=== PATIENT | female | born 1955 | race Caucasian/White ===

== ENCOUNTER → 2018-08-15 12:52 | Outpatient (CLI) | payer MEDICARE, MEDICAID, SELFPAY ==
[2018-08-15 13:55] LABS: Cholesterol 190 mg/dL (140-199); HDL Cholesterol 31 mg/dL (40-60); LDL Cholesterol Calculated 109 mg/dL (<100); Triglycerides 250 mg/dL (35-150)
[2018-08-19 18:18] LABS: Creatinine Urine Random 87.6 mg/dL
[2018-08-19 19:45] LABS: Microalbumi Creatinin Ratio Ur 453.1 ug/mg CR (<30); Microalbumin Urine Random 39.7 mg/dL (0-1.6)
== END ==
PROVIDERS: Family Provider Family Medicine; PCP Family Medicine; Visit Provider Family Medicine
DX: E78.00 Pure hypercholesterolemia, unspecified (principal)
CPT/HCPCS: 80061; 82043; 82570

== ENCOUNTER 2019-01-17 18:56 | Emergency (ER) | payer MEDICARE, MEDICAID, SELFPAY ==
[2019-01-17 19:12] VITALS: BP 156/85; PULSE 77; RESP 18; TEMP 36.3; O2SAT 100
[2019-01-17] MEDS: CYCLOBENZAPRINE 10 MG PREPACK 1 BOTTLE MISC (20:32)
[2019-01-17] MEDS: predniSONE 20 MG TABLET 40 MG PO (20:32)
[2019-01-17 20:38] VITALS: RESP 18
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
== END 2019-01-17 20:39 | disposition home or self-care (01) ==
PROVIDERS: Emergency Provider Emergency Medicine; Family Provider Family Medicine; PCP Student in an Organized Health Care Education/Training Program
DX: M54.41 Lumbago with sciatica, right side (principal)
CPT/HCPCS: 99282; 99283

== ENCOUNTER → 2019-02-26 15:35 | Outpatient (CLI) | payer MEDICARE, MEDICAID, SELFPAY ==
--- NOTE | 2019-02-26 | DI.MRI.S_ITS ---
PROCEDURE: MR LUMBAR SPINE WO CON INDICATIONS: LOW BACK PAIN TECHNIQUE: Noncontrast sagittal T1 spin echo and T2 fast echo, sagittal STIR, axial T1 and T2 fast spin echo through the lumbar spine. In cases with scoliosis, additional coronal T2 fast spin echo may be performed. COMPARISON: [facility], MR, L-SPINE WITHOUT CONTRAST, 02/25/2018, 17:59. FINDINGS: Image quality: Excellent. Alignment and Curvature: Unchanged alignment. Grade 1 anterolisthesis of L4 and L5 as before. Bone Marrow: Multilevel degenerative endplate sclerosis and spurring. Mild anterior wedging of T12 which is unchanged. Diffuse facet arthropathy. No acute vertebral body compression fractures. Spinal Cord: Conus medullaris terminates at the T12-L1 level. Visualized cord demonstrates normal signal and size. Paraspinous Soft Tissues: No paravertebral masses. T12-L1: Mild canal narrowing which is grossly unchanged. Mild bilateral foraminal stenoses L1-L2: Bilateral facet arthropathy. No canal stenosis. Lateral recess appear grossly patent. Mild bilateral foraminal narrowing which is grossly unchanged L2-L3: Broad-based posterior disc bulge. Right paracentral disc protrusion and inferior extrusion almost the level of the mid L3 vertebral body. The appearance is grossly unchanged since 02/25/18. There is moderate canal narrowing with associated compression of the cauda equina. There is also effacement of the right lateral recess with compression of the descending right L3 nerve root although probably unchanged since the prior study. L3-L4: Broad-based posterior disc bulge bilateral facet arthropathy which is grossly unchanged. There is mild partial effacement of both lateral recesses with symmetric appearance. Mild bilateral foraminal narrowing, as before. L4-L5: Broad-based posterior disc bulge mild facet arthropathy. Mild central canal narrowing and severe effacement of both lateral recesses although right slightly greater than left. Associated compression of the descending L5 nerve roots. This is slightly progressed on the right since the prior study. No change on the left. Moderate to severe bilateral foraminal narrowing with mild compression of the exiting nerve roots L5-S1: Central disc protrusion and bilateral facet arthropathy. Dorsal epidural lipomatosis and unchanged mild central canal narrowing. Lateral recesses appear grossly patent. Mild bilateral foraminal narrowing. IMPRESSION: Slight interval progression in right sided subarticular narrowing as above at L4-L5 otherwise grossly unchanged examination since 02/25/18. Dictated by: Tejinder Ferguson M.D. on 02/26/2019 at 16:57 Approved by: Tejinder Ferguson M.D. on 02/26/2019 at 17:06
[2019-02-26 18:01] LABS: HEMOLYSIS < 15 (0-50); Iron 47 ug/dL (37-170)
[2019-02-26 18:02] LABS: Hematocrit 30.8 % (36-46); Hemoglobin 10.3 g/dL (12.0-16.0); Mean Corpuscular HGB Conc 33.3 % (30-36); Mean Corpuscular Hemoglobin 32.6 PG (26-34); Platelet Count 264 X10^3/uL (150-400); Red Blood Cell Count 3.14 X10^6/uL (4.0-5.2); Red Cell Distribution Width 15.7 % (11.6-14.8); White Blood Cell Count 4.8 X10^3/uL (4.5-11.0)
[2019-02-26 18:03] LABS: Alanine Aminotransferase 24 IU/L (9-52); Albumin 3.5 g/dL (3.5-5.0); Albumin Globulin Ratio 1.7 (1.0-2.8); Alkaline Phosphatase 87 U/L (38-126); Aspartate Aminotransferase 15 IU/L (14-36); Bilirubin Total 0.4 mg/dL (0.2-1.3); Blood Urea Nitrogen 26 mg/dL (7-17); Calcium 8.9 mg/dL (8.4-10.2); Carbon Dioxide 19 mmol/L (22-32); Chloride 110 mmol/L (98-107); Globulin 2.1 g/dL (1.7-4.1); Glucose 119 mg/dL (80-110); HEMOLYSIS < 15 (0-50); Sodium 139 mmol/L (137-145); Total Protein 5.6 g/dL (6.3-8.2)
[2019-02-26 18:08] LABS: Hemoglobin A1C% w Est Avg Glu 4.6 % (4.0-6.0)
[2019-02-26 18:10] LABS: Reticulocyte Count, Percent 7.9 % (1.06-2.63)
[2019-02-26 18:12] LABS: Percent Iron Saturation 16 % (15-50); Total Iron Binding Capacity 285 ug/dL (265-497); Transferrin 220 mg/dL (206-381)
[2019-02-26 18:19] LABS: Vitamin D 25 Hydroxy (D3) < 12.8 ng/mL (30.0-100.0)
[2019-02-26 19:07] LABS: Folate 7.4 ng/mL (2.76-20.0); Vitamin B12 293 pg/mL (239-931)
[2019-02-28 14:27] LABS: Phosphorous 3.8 mg/dL (2.8-4.1)
== END ==
PROVIDERS: Family Provider Family Medicine; PCP Student in an Organized Health Care Education/Training Program; Visit Provider Orthopaedic Surgery
DX: M54.5 Low back pain (principal); E11.9 Type 2 diabetes mellitus without complications; I12.9 Hypertensive chronic kidney disease with stage 1 through stage 4 chronic kidney disease, or unspecified chronic kidney disease; N18.3 Chronic kidney disease, stage 3 (moderate); R60.0 Localized edema; D64.9 Anemia, unspecified; E55.9 Vitamin D deficiency, unspecified; M12.88 Other specific arthropathies, not elsewhere classified, other specified site; Z79.899 Other long term (current) drug therapy
CPT/HCPCS: 36415; 72148; 80053; 82306; 82607; 82728; 82746; 83036; 83540; 83550; 84100; 85027; 85045

== ENCOUNTER 2019-10-15 12:33 | Emergency (ER) | payer MEDICARE, MEDICAID, SELFPAY ==
[2019-10-15 12:47] VITALS: BP 161/81; PULSE 73; RESP 20; O2SAT 97
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
--- NOTE | 2019-10-15 12:59 | PC.NURSE ---
small raised red blanching rash to ankles and feet bilaterally, circumferential with spread to posterior lower legs, non itching, non painful
[2019-10-15 13:32] VITALS: BP 144/81; PULSE 70; RESP 18; O2SAT 98
== END 2019-10-15 13:33 | disposition home or self-care (01) ==
PROVIDERS: Emergency Provider Nurse Practitioner Family; PCP Student in an Organized Health Care Education/Training Program
DX: R21 Rash and other nonspecific skin eruption (principal); I87.2 Venous insufficiency (chronic) (peripheral); E11.9 Type 2 diabetes mellitus without complications
CPT/HCPCS: 99282

== ENCOUNTER → 2019-10-16 11:45 | Outpatient (CLI) | payer MEDICARE, MEDICAID, SELFPAY ==
[2019-10-16 12:52] LABS: Add Manual Diff / Slide Review NO; Basophils Absolute Auto 0 /uL (0-100); Basophils Percent Auto 0.6 % (0-2); Eosinophils Absolute Auto 300 /uL (0-450); Eosinophils Percent Auto 3.8 % (2-4); Hematocrit 40.5 % (36-46); Hemoglobin 13.1 g/dL (12.0-16.0); Lymphocytes Absolute Auto 1800 /uL (1100-4500); Lymphocytes Percent Auto 26.9 % (25-40); Mean Corpuscular HGB Conc 32.4 % (30-36); Mean Corpuscular Hemoglobin 28.7 PG (26-34); Mean Corpuscular Volume 88.5 fL (80-100); Monocytes Absolute Auto 500 /uL (0-900); Monocytes Percent Auto 7.7 % (3-14); Neutrophils Absolute Auto 4200 /uL (1500-7000); Platelet Count 326 X10^3/uL (150-400); Red Blood Cell Count 4.58 X10^6/uL (4.0-5.2); Red Cell Distribution Width 15.9 % (11.6-14.8); White Blood Cell Count 6.8 X10^3/uL (4.5-11.0)
[2019-10-16 13:01] LABS: Reticulocyte Count, Percent 2.6 % (1.06-2.63)
[2019-10-16 13:10] LABS: Hemoglobin A1C% w Est Avg Glu 7.6 % (4.0-6.0)
[2019-10-16 13:11] LABS: Blood Urea Nitrogen 36 mg/dL (7-17); Calcium 8.6 mg/dL (8.4-10.2); Carbon Dioxide 26 mmol/L (22-32); Chloride 103 mmol/L (98-107); Cholesterol 251 mg/dL (140-199); Estimated Glomerular Filt Rate 28.2 mL/min (>60); Glucose 164 mg/dL (80-110); HDL Cholesterol 33 mg/dL (40-60); HEMOLYSIS < 15 (0-50); LDL Cholesterol Calculated 147 mg/dL (<100); Potassium 4.3 mmol/L (3.4-5.1); Sodium 138 mmol/L (137-145); Triglycerides 355 mg/dL (35-150)
[2019-10-16 13:17] LABS: Erythrocyte Sedimentation Rate 60 MM/HR (0-20)
[2019-10-16 13:24] LABS: Vitamin D 25 Hydroxy (D3) < 12.8 ng/mL (30.0-100.0)
[2019-10-19 13:51] LABS: Parathyroid Hormone Int 179 pg/mL (14-64)
== END ==
PROVIDERS: PCP Student in an Organized Health Care Education/Training Program; Visit Provider Nurse Practitioner
DX: D64.9 Anemia, unspecified (principal); E55.9 Vitamin D deficiency, unspecified; N18.3 Chronic kidney disease, stage 3 (moderate); E11.9 Type 2 diabetes mellitus without complications; E78.2 Mixed hyperlipidemia
CPT/HCPCS: 36415; 80048; 80061; 82306; 83036; 83516; 83970; 84100; 85025; 85045; 85651; 86140; 86880

== ENCOUNTER → 2019-10-20 13:32 | Outpatient (CLI) | payer MEDICARE, MEDICAID, SELFPAY | PROVIDERS: PCP Student in an Organized Health Care Education/Training Program; Visit Provider Student in an Organized Health Care Education/Training Program | DX: Z13.820 Encounter for screening for osteoporosis (principal); M81.0 Age-related osteoporosis without current pathological fracture; E11.22 Type 2 diabetes mellitus with diabetic chronic kidney disease; N18.3 Chronic kidney disease, stage 3 (moderate); M54.5 Low back pain; Z90.722 Acquired absence of ovaries, bilateral | CPT/HCPCS: 77080; 77081 ==

== ENCOUNTER → 2019-10-27 15:29 | Outpatient (CLI) | payer MEDICARE, MEDICAID, SELFPAY ==
[2019-10-27 16:11] LABS: Add Manual Diff / Slide Review NO; Basophils Absolute Auto 100 /uL (0-100); Eosinophils Absolute Auto 100 /uL (0-450); Eosinophils Percent Auto 2.3 % (2-4); Hematocrit 41.2 % (36-46); Hemoglobin 13.9 g/dL (12.0-16.0); Lymphocytes Absolute Auto 1300 /uL (1100-4500); Lymphocytes Percent Auto 20.6 % (25-40); Mean Corpuscular HGB Conc 33.6 % (30-36); Mean Corpuscular Hemoglobin 29.4 PG (26-34); Mean Corpuscular Volume 87.6 fL (80-100); Monocytes Absolute Auto 400 /uL (0-900); Neutrophils Absolute Auto 4200 /uL (1500-7000); Neutrophils Percent Auto 69.1 % (50-75); Platelet Count 281 X10^3/uL (150-400); Red Blood Cell Count 4.71 X10^6/uL (4.0-5.2); Red Cell Distribution Width 16.3 % (11.6-14.8); White Blood Cell Count 6.1 X10^3/uL (4.5-11.0)
[2019-10-27 16:28] LABS: Erythrocyte Sedimentation Rate 59 MM/HR (0-20)
[2019-10-27 17:23] LABS: BUN Creatinine Ratio 20.5 (6-22); Blood Urea Nitrogen 39 mg/dL (7-17); C-Reactive Protein Quant 0.9 mg/dL (<1.0); Calcium 9.1 mg/dL (8.4-10.2); Carbon Dioxide 19 mmol/L (22-32); Chloride 108 mmol/L (98-107); Estimated Glomerular Filt Rate 26.4 mL/min (>60); Glucose 230 mg/dL (80-110); HEMOLYSIS < 15 (0-50); Potassium 4.8 mmol/L (3.4-5.1); Sodium 139 mmol/L (137-145)
== END ==
PROVIDERS: PCP Student in an Organized Health Care Education/Training Program; Visit Provider Student in an Organized Health Care Education/Training Program
DX: L98.499 Non-pressure chronic ulcer of skin of other sites with unspecified severity (principal); N18.3 Chronic kidney disease, stage 3 (moderate)
CPT/HCPCS: 36415; 80048; 85025; 85651; 86140

== ENCOUNTER → 2019-11-04 13:26 | Outpatient (CLI) | payer MEDICARE, MEDICAID, SELFPAY | PROVIDERS: PCP Student in an Organized Health Care Education/Training Program; Visit Provider Family Medicine | DX: E11.628 Type 2 diabetes mellitus with other skin complications (principal); S21.002A Unspecified open wound of left breast, initial encounter | CPT/HCPCS: 97597; 99203; 99213 ==

== ENCOUNTER → 2019-11-19 13:53 | Outpatient (CLI) | payer MEDICARE, MEDICAID, SELFPAY | PROVIDERS: PCP Student in an Organized Health Care Education/Training Program; Visit Provider Family Medicine | DX: E11.622 Type 2 diabetes mellitus with other skin ulcer (principal); S21.002A Unspecified open wound of left breast, initial encounter | CPT/HCPCS: 99212; 99213 ==

== ENCOUNTER → 2019-12-08 13:53 | Outpatient (CLI) | payer MEDICARE, MEDICAID, SELFPAY | PROVIDERS: PCP Student in an Organized Health Care Education/Training Program; Referring Provider Student in an Organized Health Care Education/Training Program; Visit Provider Family Medicine | DX: E11.628 Type 2 diabetes mellitus with other skin complications (principal); B37.2 Candidiasis of skin and nail | CPT/HCPCS: 99213 ==

== ENCOUNTER → 2019-12-17 12:22 | Outpatient (CLI) | payer MEDICARE, MEDICAID, SELFPAY ==
[2019-12-17 13:06] LABS: Hematocrit 41.9 % (36-46); Hemoglobin 13.6 g/dL (12.0-16.0)
[2019-12-17 14:14] LABS: HEMOLYSIS < 15 (0-50); Iron 37 ug/dL (37-170)
[2019-12-17 14:25] LABS: Percent Iron Saturation 14 % (15-50); Total Iron Binding Capacity 274 ug/dL (265-497); Transferrin 241 mg/dL (206-381)
[2019-12-17 16:12] LABS: BUN Creatinine Ratio 21.1 (6-22); Blood Urea Nitrogen 38 mg/dL (7-17); Calcium 9.5 mg/dL (8.4-10.2); Carbon Dioxide 25 mmol/L (22-32); Chloride 104 mmol/L (98-107); Estimated Glomerular Filt Rate 28.2 mL/min (>60); Glucose 103 mg/dL (80-110); HEMOLYSIS < 15 (0-50); Potassium 5.1 mmol/L (3.4-5.1); Sodium 139 mmol/L (137-145)
[2019-12-21 13:48] LABS: Parathyroid Hormone Int 143 pg/mL (14-64)
== END ==
PROVIDERS: PCP Student in an Organized Health Care Education/Training Program; Visit Provider Student in an Organized Health Care Education/Training Program
DX: I50.32 Chronic diastolic (congestive) heart failure (principal); D50.0 Iron deficiency anemia secondary to blood loss (chronic); D64.9 Anemia, unspecified; N25.81 Secondary hyperparathyroidism of renal origin
CPT/HCPCS: 36415; 80048; 82728; 83540; 83550; 83970; 85014; 85018

== ENCOUNTER → 2019-12-24 13:50 | Outpatient (CLI) | payer MEDICARE, MEDICAID, SELFPAY | PROVIDERS: PCP Student in an Organized Health Care Education/Training Program; Referring Provider Student in an Organized Health Care Education/Training Program; Visit Provider Family Medicine | DX: E11.628 Type 2 diabetes mellitus with other skin complications (principal); S21.002D Unspecified open wound of left breast, subsequent encounter | CPT/HCPCS: 99212; 99213 ==

== ENCOUNTER 2020-01-03 14:32 | Observation (INO) | payer MEDICARE, MEDICAID, SELFPAY ==
[2020-01-03] VITALS (8 sets, daily range): BP systolic 115–173; BP diastolic 55–80; PULSE 78–96; RESP 13–23; TEMP 36.3–36.8; O2SAT 80–98; BMI 39.9
--- NOTE | 2020-01-03 14:33 | DI.RAD.S_ITS ---
PROCEDURE: XR CHEST 1V INDICATIONS: suspected sepsis TECHNIQUE: One view of the chest was acquired. COMPARISON: [facility], , CHEST 2 VIEW, 03/22/2013, 15:48. FINDINGS: Surgical changes and devices: Median sternotomy changes are present. Multiple broken sternal wires are noted. Lungs and pleura: Lungs are clear. No pleural effusions or pneumothorax. Mediastinum: Mediastinal contours appear normal. Heart size is enlarged. Bones and chest wall: No suspicious bony lesions. Overlying soft tissues appear unremarkable. IMPRESSION: Cardiomegaly without overt heart failure. No definite pneumonia. Dictated by: Timbo Bull M.D. on 01/03/2020 at 15:26 Approved by: Timbo Bull M.D. on 01/03/2020 at 15:27
[2020-01-03] MEDS: SODIUM CHLORIDE 0.9% 1,000 ML 1000 ML IV (14:47)
[2020-01-03] MEDS: ONDANSETRON 4 MG/2 ML INJ IV (14:59)
[2020-01-03] MEDS: MORPHINE 4 MG/ML INJ IV ×2 (14:59→20:15)
[2020-01-03 15:02] LABS: Add Manual Diff / Slide Review NO; Basophils Absolute Auto 0 /uL (0-100); Basophils Percent Auto 0.5 % (0-2); Eosinophils Absolute Auto 100 /uL (0-450); Eosinophils Percent Auto 1.7 % (2-4); Hematocrit 42.2 % (36-46); Hemoglobin 14.1 g/dL (12.0-16.0); Lymphocytes Absolute Auto 1300 /uL (1100-4500); Lymphocytes Percent Auto 18.8 % (25-40); Mean Corpuscular HGB Conc 33.3 % (30-36); Mean Corpuscular Hemoglobin 28.6 PG (26-34); Mean Corpuscular Volume 85.9 fL (80-100); Monocytes Absolute Auto 400 /uL (0-900); Monocytes Percent Auto 5.8 % (3-14); Neutrophils Absolute Auto 5200 /uL (1500-7000); Neutrophils Percent Auto 73.2 % (50-75); Platelet Count 266 X10^3/uL (150-400); Red Blood Cell Count 4.92 X10^6/uL (4.0-5.2); Red Cell Distribution Width 16.2 % (11.6-14.8); White Blood Cell Count 7.1 X10^3/uL (4.5-11.0)
[2020-01-03 15:06] LABS: INR 1.1 (0.9-1.3); Prothrombin Time 12.1 SECONDS (10.1-12.7)
[2020-01-03 15:09] LABS: PTT Partial Thromboplastin Tim 35 SECONDS (26.4-36.2)
[2020-01-03 15:19] LABS: Alanine Aminotransferase 16 IU/L (<35); Albumin 4.2 g/dL (3.5-5.0); Albumin Globulin Ratio 1.4 (1.0-2.8); Alkaline Phosphatase 102 U/L (38-126); Aspartate Aminotransferase 25 IU/L (14-36); BUN Creatinine Ratio 16.5 (6-22); Bilirubin Total 0.7 mg/dL (0.2-1.3); Blood Urea Nitrogen 33 mg/dL (7-17); Calcium 9.6 mg/dL (8.4-10.2); Carbon Dioxide 22 mmol/L (22-32); Chloride 106 mmol/L (98-107); Estimated Glomerular Filt Rate 24.9 mL/min (>60); Globulin 3.1 g/dL (1.7-4.1); Glucose 116 mg/dL (80-110); HEMOLYSIS < 15 (0-50); Lipase 92 U/L (23-300); Sodium 140 mmol/L (137-145); Total Protein 7.3 g/dL (6.3-8.2)
--- NOTE | 2020-01-03 15:34 | DI.RAD.S_ITS ---
PROCEDURE: XR LUMBAR SPINE 2-3V INDICATIONS: fall on Friday, worsening low back pain TECHNIQUE: 4 views of the lumbar spine were acquired. COMPARISON: [facility], MR, MR LUMBAR SPINE WO CON, 02/26/2019, 16:00. [facility], CR, L-SPINE 2-3 VIEWS, 02/18/2018, 15:46. FINDINGS: Bones: 5 [id number] vertebrae are present. Mild scoliosis. Mild anterolisthesis of L4 on L5, appears unchanged. Moderate degenerative change. No vertebral body compression fractures. No suspicious bony lesions. Soft tissues: Mildly prominent loop of small bowel in the left abdomen. No suspicious soft tissue calcifications. Cholecystectomy clips. IMPRESSION: 1. No acute osseous abnormality identified. 2. Mildly prominent loop of small bowel in the mid left abdomen. Correlate with abdominal tenderness. Dictated by: Marcel Rai M.D. on 01/03/2020 at 16:33 Approved by: Marcel Rai M.D. on 01/03/2020 at 16:39
--- NOTE | 2020-01-03 15:34 | DI.RAD.S_ITS ---
PROCEDURE: XR PELVIS 1-2V INDICATIONS: fall friday worse low back pain, unable to walk TECHNIQUE: 1 view(s) of the pelvis acquired. COMPARISON: [facility], , PELVIS W UNILATERAL HIP LEFT, 02/13/2015, 14:40. FINDINGS: Bones: No fractures or dislocations. No suspicious bony lesions. Moderate to severe to space narrowing in the left hip joint. Stable irregularity at the left SI joint. Soft tissues: Visualized bowel gas pattern is normal. No suspicious soft tissue calcifications. IMPRESSION: No obvious fracture or dislocation. 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 Dictated by: Marcel Rai M.D. on 01/03/2020 at 16:39 Approved by: Marcel Rai M.D. on 01/03/2020 at 16:40
[2020-01-03 15:36] LABS: Procalcitonin 0.09 ng/mL (<0.5)
--- NOTE | 2020-01-03 16:10 | PC.NURSE ---
Second set of blood cultures drawn from IV RAC.
--- NOTE | 2020-01-03 17:21 | ED_ITS ---
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 She is not having any clear neurologic symptoms that require emergent a valve this evening. She has been having some diarrhea frequently but there were no clear changes on her imaging that would relate to causing this. She has not been having any urinary or fecal incontinence. Her CT does show cystitis type changes and catheterization shows almost purulence like urine which has nitrates and leuks and so patient was started on antibiotics. This in combination with her chronic back issues may be contributing to her debility at this time. Spoke with NAVA Werner who had initially been made aware by Dr. Pitts and she accepts the patient for observation. Observation status was made clear to the patient at the request the nurse practitioner. Rocephin was started in the department. Patient has not shown any signs of sepsis. Discharge Plan Departure Patient Disposition: Admitted as Observation Clinical Impression: Right hip pain, Sciatica of right side, Disability of walking Lower back pain Qualifiers: Chronicity: chronic Back pain laterality: midline Sciatica presence: with sciatica Sciatica laterality: sciatica of right side Qualified Code(s): M54.41 - Lumbago with sciatica, right side Chronic bronchitis Qualifiers: Chronic bronchitis type: unspecified Qualified Code(s): J42 - Unspecified chronic bronchitis UTI (urinary tract infection) Qualifiers: Urinary tract infection type: acute cystitis Hematuria presence: with hematuria Qualified Code(s): N30.01 - Acute cystitis with hematuria Discharge Date/Time: 01/03/20 22:14 Admit Date/Time: 01/03/20 21:13 Admit Provider: Janie Werenr
[2020-01-03] MEDS: ALBUTEROL/IPRATROPIUM 3 ML AMPUL INH (18:08)
--- NOTE | 2020-01-03 18:10 | DI.CT.S_ITS ---
PROCEDURE: CT LUMBAR SPINE WO CON INDICATIONS: severe low back pain unable to walk TECHNIQUE: Noncontrast 3 mm thick sections acquired from the T12 level to the sacrum. Sagittal and coronal reformats were constructed. For radiation dose reduction, the following was used: automated exposure control. COMPARISON: None. FINDINGS: Image quality: Excellent. Bones: There is a grade 1 anterolisthesis L4 on 5. No acute vertebral body compression fractures. Chronic anterior wedge deformity with dystrophic ossification anteriorly involving T12. No suspicious lytic or blastic bony lesions. Central spinal caliber is of normal overall caliber. No pars defects. T12-L1: Severe disc height loss and mild posterior endplate osteophytosis. Mild anterior central canal narrowing. L1-L2: Minor degenerative change. L2-L3: Severe degenerative disc height loss, posterior endplate osteophytosis, and mild facet arthropathy results in moderate central canal stenosis. L3-L4: Moderate degenerative disc change with vacuum disc phenomenon and mild posterior disc protrusion results in effacement of anterior thecal sac. Moderate facet arthropathy contributes to mild overall central canal narrowing. L4-L5: Severe degenerative facet change and mild disc degeneration including central vacuum disc phenomenon is present. Grade 1 anterolisthesis accentuates moderate central canal narrowing. L5-S1: Mild degenerative vacuum disc phenomenon causes minor central canal narrowing. 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 No paraspinal soft tissue inflammation. No retroperitoneal masses or hematomas. Visualized aorta is normal in caliber. IMPRESSION: 1. Chronic multilevel spondylosis. Central canal stenosis is most severe at the L2-3 level. 2. Degenerative facet joint change results in grade 1 anterolisthesis at the L4-5 level. 3. 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 Dictated by: Krys Martinez M.D. on 01/03/2020 at 20:04 Approved by: Krys Martinez M.D. on 01/03/2020 at 20:11
--- NOTE | 2020-01-03 18:10 | DI.CT.S_ITS ---
PROCEDURE: CT ABDOMEN PELVIS WO CON INDICATIONS: svere low back pain unable to walk TECHNIQUE: Noncontrast 5 mm thick sections acquired from the diaphragms to the symphysis. 5 mm coronal and sagittal reformats were then performed. For radiation dose reduction, the following was used: automated exposure control, adjustment of mA and/or kV according to patient size. COMPARISON: None. FINDINGS: Image quality: Excellent. ABDOMEN: Lung bases: Lung bases demonstrate patchy subpleural parenchymal groundglass opacities. No effusion. Heart size is normal. Solid organs: Liver is normal in size. Gallbladder is surgically absent. Pancreas is normal in contours. Spleen is mildly enlarged measuring 14.3 cm in length. No adrenal nodules. Kidneys are diminutive bilaterally with vascular calcifications. Peritoneum and bowel: Unenhanced bowel loops demonstrate normal wall thickness and caliber. The appendix is normal. Mildly prominent small bowel loops containing air-fluid levels. No visible transition point. Diverticulosis of the descending and sigmoid colon without acute inflammatory change. No free fluid or air. Nodes and vessels: No retroperitoneal or mesenteric adenopathy by size criteria. Aorta and inferior vena cava are normal in caliber. Miscellaneous: No ventral hernias. PELVIS: Genitourinary: There are multiple foci of air within the urinary bladder wall. Moderate ann-marie-vesicular inflammatory changes. There is either extraluminal or intravascular gas in small pelvic vessels posterior to the urinary bladder. No evidence of more proximal intravascular gas. Miscellaneous: No inguinal hernias or adenopathy. The uterus is surgically absent. Bones: No suspicious bony lesions. Exaggerated lumbar lordosis with multilevel degenerative disc disease. No vertebral body compression fractures. IMPRESSION: 1. Findings of emphysematous cystitis with trace amount of air tracking into the perivesicular vasculature. Correlate with UA. 2. Findings suggest large and small bowel ileus. 3. Diverticulosis without acute diverticulitis. 4. Diminutive kidneys. Dictated by: Krys Martinez M.D. on 01/03/2020 at 19:06 Approved by: Krys Martinez M.D. on 01/03/2020 at 19:16
--- NOTE | 2020-01-03 20:02 | PC.NURSE ---
Fem cath for urine, pt tolerated well. Scant amt brown urine obtained and sent to lab, Dr Urias notified
[2020-01-03 20:15] LABS: Appearance Urine UA TURBID; Bilirubin Urine UA 1+ (NEGATIVE); Color Urine UA BROWN; Glucose Urine UA TRACE g/dL (Negative); Ketones Urine UA NEGATIVE (NEGATIVE); Leukocyte Esterase Urine UA 2+ (NEGATIVE); Nitrite Urine UA POSITIVE (Negative); Occult Blood Urine UA 3+ (Negative); Protein Urine UA 3+ (Negative); Specific Gravity Urine UA 1.015 (1.000-1.035); Urobilinogen Urine UA 0.2 E.U./dL (0.2)
[2020-01-03 20:18] LABS: pH Urine UA 7.5 (4.5-8.0)
[2020-01-03 20:19] LABS: Amorphous Sediment Urine 2+; Bacteria Urine Moderate (10-30); Culture Indicated Urine Specimen Cultured; Ictotest Urine Negative (Negative); Mucus Urine 2+ (Negative); RBC Urine 5-10/HPF (0-5/HPF); Squamous Epithelial Cell Urine 0-1 /HPF (0-5/HPF); WBC Urine >100/HPF (0-5/HPF)
[2020-01-03] MEDS: CEFTRIAXONE 1 GM/50 ML FROZ.PIGGY IV (20:54)
--- NOTE | 2020-01-04 04:39 | PM.HP.1 ---
History of Present Illness History of Present Illness Date Patient Seen: 01/04/20 Time Patient Seen: 04:39 Chief complaint: Weakness Narrative: HPI is obtained via direct interview with the patient and review of records. Patient is an unreliable historian. Ms Velazquez is a 64-year-old female with PMHx of HTN, CAD (h/o NE, 2v-CABG 2011), CHF, DM 2T (w/ complications of polyneuropathy), COPD / asthma, CKD III, Fe deficiency anemia, chronic pain (OA, sciatica), psoriasis, and depression. Patient herself is not entirely sure why she presented to the hospital. Patient has multiple complaints. ED triage records note concern for a rash, she had an outpatient appointment; however, for unknown reasons, decided to come to the ED instead. Over the past week patient has had loose bowel movements / diarrhea. Notes episodes occurring sporadically throughout the week. Patient denies abdominal pain, nausea, and vomiting. Denies presence of melena and hematochezia. She reports to have not eaten for the past 3-4 days out of fear for loose stools. In addition, patient reports change in pattern of micturition. Specifically notes presence of dysuria and decreased urine output. She denies urinary frequency and hematuria. Patient reports baseline bowel and bladder incontinence. Patient has severe intertrigo between breast folds and in the vaginal/inguinal area, progressively worsening over the past 1 month. Patient denies history of recurrent UTIs. Patient reports chronic back pain and chronic right lower extremity pain with sciatica. Reports being immobile at baseline. Patient reports spending most of her day in bed. She is unable to get out of bed on her own and requires assistance of her caregiver for her son. She is unable to walk or engage in ADLs independently and requires assistance. Reports being in this state of debility for 6-7 months. She reports having progressive decline in her mobility over the past 8 years. Patient denies fever and chills. Denies recent illness. Denies URI symptoms. Denies chest pain, shortness of breath, dizziness, lightheadedness, abdominal pain, nausea, or vomiting. Patient is an everyday smoker. Also endorses vaping all day long. ED Presentation & Work-Up T 97.7 BP 158/79 HR 88 RR 18 SpO2 97% GCS 15 Labs, 01/03/20 14:35 WBC 7.1 Lactate 2.0 PCT 0.09 HGB 14.1 PLT 266 PT 12.1 INR 1.1 APTT 35 NA 140 K 4.0 CL 106 CA 9.6 ALB 4.2 GLU 116 CO2 22 BUN 33 CR 2.0 GFR 24.9 BUN:Cr 16.5 T.Bili 0.7 AST 25 ALT 16 ALP 102 UA... nitrate +, LE +, WBC > 100, bacteria moderate, protein 3+, glucose (trace), occult blood 3+, RBC 5-10 CXR Median sternotomy changes present. Multiple broken sternal wires. Lungs are clear. No pleural effusions or pneumothorax. Cardiomegaly w/o overt HF. No suspicious bony lesions. Overlying soft tissues appear unremarkable. XR LUMBAR SPINE. No acute osseous abnormality identified. Mildly prominent loop of small bowel in the mid left abdomen. XR PELVIS. No obvious fracture or dislocation. [id number] left hip DJD. CT ABDOMEN / PELVIS Lung bases demonstrate patchy subpleural parenchymal ground-glass opacities. Spleen is mildly enlarged, 14.3 cm. Kidneys are diminutive bilaterally w/ vascular calcifications. Emphysematous cystitis with trace amount of air tracking into the perivesicular vasculature. Findings suggest large and small bowel ileus. Diverticulosis of the descending and sigmoid colon w/o acute diverticulitis. Patient History Medical History Anemia (Chronic 1996) Arthritis (Chronic Unknown) Asthma (Chronic 1979) Cardiac arrhythmia (Chronic 1991) Cataracts, bilateral (Chronic 1996) Chickenpox (Resolved) Chickenpox (Resolved) CKD (chronic kidney disease) (Chronic 1979) COPD (chronic obstructive pulmonary disease) (Chronic 1979) Coronary artery disease (Chronic) Coronary artery disease (Chronic 1991) Depression (Chronic 1979) Diabetes (Chronic 1988) Diabetic polyneuropathy (Chronic) Essential hypertension (Chronic) Gastroesophageal reflux disease (Chronic) GERD (gastroesophageal reflux disease) (Chronic 1978) Hyperlipemia (Chronic Unknown) Hyperlipidemia (Chronic) Hypertension (Chronic 1991) Iron deficiency (Resolved) Lower back pain (Chronic 12/2015) Lower extremity edema (Chronic) Measles (Resolved) Myocardial infarction (Resolved 1991) Neuropathy (Chronic Unknown) Osteoarthritis (Chronic) Psoriasis (Chronic 2014) Skin cancer (Resolved 2007) Stage 3 chronic kidney disease (Chronic) Type 2 diabetes mellitus (Resolved) Surgical History Hx of heart surgery (Resolved 1991) Hx of surgical procedure (Resolved 03/2018) Status post cholecystectomy (1984) Status post coronary artery bypass graft (06/2012) Status post hysterectomy (1985) Status post tubal ligation Family & Social History Family History Father No problems noted. Mother Cancer Hypertension Brother Cancer Brother Diabetes mellitus Brother Stroke Sister Diabetes mellitus Heart disease Mental health problem Grandmother Cancer Social History: household members children Prior Living Arrangements Apartment/Condo lives independently Yes caregiver/support person Yes Safety & Behavioral: Feels Safe in Current Yes Environment Been Physically Hurt or No Threatened By a Person Suicidal Ideation Description None Suicide Plan Description No Plan Tobacco & Substance use: Tobacco type cigarettes,smokeless tobacco Smoking Status Current every day smoker alcohol intake former alcohol intake frequency other Substance Use Type does not use Meds Home Medications and Allergies Home Medications Medication Instructions Recorded Confirmed Type cyclobenzaprine 10 mg tablet 10 mg PO TID PRN #90 tab 07/21/19 01/03/20 Rx albuterol sulfate 90 mcg/actuation 2 puff INHALATION Q6H PRN #18 gram 10/27/19 01/03/20 Rx aerosol inhaler atorvastatin 20 mg tablet 20 mg PO BEDTIME #90 tab 10/27/19 01/03/20 Rx clopidogrel 75 mg tablet 75 mg PO DAILY #90 tab 10/27/19 01/03/20 Rx metformin 500 mg tablet 500 mg PO BID #180 tab 10/27/19 01/03/20 Rx nystatin 100,000 unit/gram topical 1 applictn TOP TID #30 gram 11/16/19 01/03/20 Rx ointment blood sugar diagnostic #100 each 11/30/19 01/03/20 Rx blood-glucose meter #1 each 11/30/19 01/03/20 Rx lancets #100 each 11/30/19 01/03/20 Rx nystatin 100,000 unit/gram topical 1 applictn TOP TID #30 gram 11/30/19 01/03/20 Rx powder glipizide 5 mg tablet 5 mg PO BID #180 tab 12/13/19 01/03/20 Rx losartan 50 mg tablet 50 mg PO DAILY #90 tab 12/27/19 01/03/20 Rx calcitriol 0.5 mcg PO DAILY 01/03/20 01/03/20 History Allergies Allergy/AdvReac Type Severity Reaction Status Date / Time lisinopril Allergy Severe ANGIOEDEMA Verified 10/27/19 14:31 aspirin Allergy Mild HIVES Verified 10/27/19 14:31 simvastatin Allergy Mild RASH Verified 10/27/19 14:31 Review of Systems Review of Systems ROS: Yes All systems reviewed with the patient and are negative except as otherwise documented Exam Vital Signs (past 8 hours): - 01/03/20 20:41 01/03/20 22:15 01/03/20 23:39 Temperature 97.4 F L 98.3 F Pulse Rate 85 78 Respiratory Rate 13 19 16 Blood Pressure 129/80 115/55 L Blood Pressure [Right Arm] 126/68 Pulse Oximetry 98 94 89 L Oxygen Delivery Method Room Air Oxygen Flow Rate 0 Narrative Exam Narrative: Constitutional: NAD, obese habitus BMI 39.9 Neurologic: AOx3, no focal neurological deficits, poor short and long-term memory recall Head: NC, AT Eyes: PERRL, EOMI, Ears: external ears normal, no otorrhea Nose: external nose normal, no rhinorrhea or epistaxis Throat: MMM, oropharynx w/o exudate Neck: no masses, lymphadenopathy, or JVD Chest / Respiratory: CTA, diminished bases. Unlabored respiratory effort. No tachypnea. On room air. Heart / CV: Irregularly irregular Abdomen / GI: A marked central obesity, diffuse tenderness to palpation/most tender in the epigastric/periumbilical area : No overt suprapubic tenderness Peripheral / Vascular: No peripheral edema, b/l feet hypersensitive to touch. Mottled feet. Mycotic toenails. Musc: Diminished ROM. Able to wiggle toes. Able to slightly move both Lasix. Positive right straight leg test. B/L foot drop. Diminished muscle tone and strength. Skin: no ecchymosis or suspicious lesions / ulcers Objective Labs Result Diagrams: 01/03/20 14:35 01/03/20 14:35 Labs: Laboratory Results - last 24 hr 01/03/20 01/03/20 01/03/20 14:35 14:35 14:35 WBC 7.1 RBC 4.92 Hgb 14.1 Hct 42.2 MCV 85.9 MCH 28.6 MCHC 33.3 RDW 16.2 H Plt Count 266 Neut % (Auto) 73.2 Lymph % (Auto) 18.8 L [place] % (Auto) 5.8 Eos % (Auto) 1.7 L Baso % (Auto) 0.5 Neut # (Auto) 5200 Lymph # (Auto) 1300 [place] # (Auto) 400 Eos # (Auto) 100 Baso # (Auto) 0 PT 12.1 INR 1.1 APTT 35 Sodium Potassium Chloride Carbon Dioxide BUN Creatinine Estimated GFR BUN/Creatinine Ratio Glucose Lactate Calcium Total Bilirubin AST ALT Alkaline Phosphatase Total Protein Albumin Globulin Albumin/Globulin Ratio Lipase Procalcitonin 0.09 Urine Color Urine Appearance Urine pH Ur Specific [place] Urine Protein Urine Glucose (UA) Urine Ketones Urine Occult Blood Urine Nitrate Urine Bilirubin Ur Bilirubin Confirm Urine Urobilinogen Ur Leukocyte Esterase Urine RBC Urine WBC Ur Squamous Epith Cells Amorphous Sediment Urine Bacteria Urine Mucus Ur Culture Indicated? 01/03/20 01/03/20 01/03/20 14:35 14:35 20:00 WBC RBC Hgb Hct MCV MCH MCHC RDW Plt Count Neut % (Auto) Lymph % (Auto) [place] % (Auto) Eos % (Auto) Baso % (Auto) Neut # (Auto) Lymph # (Auto) [place] # (Auto) Eos # (Auto) Baso # (Auto) PT INR APTT Sodium 140 Potassium 4.0 Chloride 106 Carbon Dioxide 22 BUN 33 H Creatinine 2.00 H Estimated GFR 24.9 L BUN/Creatinine Ratio 16.5 Glucose 116 H Lactate 2.0 Calcium 9.6 Total Bilirubin 0.7 AST 25 ALT 16 Alkaline Phosphatase 102 Total Protein 7.3 Albumin 4.2 Globulin 3.1 Albumin/Globulin Ratio 1.4 Lipase 92 Procalcitonin Urine Color Brown Urine Appearance Turbid Urine pH 7.5 Ur Specific [place] 1.015 Urine Protein 3+ H Urine Glucose (UA) Trace H Urine Ketones Negative Urine Occult Blood 3+ H Urine Nitrate Positive Urine Bilirubin 1+ H Ur Bilirubin Confirm Negative Urine Urobilinogen 0.2 Ur Leukocyte Esterase 2+ H Urine RBC 5-10/hpf H Urine WBC >100/hpf H Ur Squamous Epith Cells 0-1 /hpf Amorphous Sediment 2+ Urine Bacteria Moderate (10-30) H Urine Mucus 2+ H Ur Culture Indicated? Specimen cultured Assessment & Plan Assessment & Plan narrative: Patient is being admitted under observation status for acute cystitis. Emphasematous cystitis, acute, present on admission, active - H/o DM. - CT A/P. Emphysematous cystitis with trace amount of air tracking into the perivesicular vasculature. - Asymptomatic bacteuria - Received 1 gm rocephin in ED, continue - Blood and urine cx pending - Lane catheter - Strict I/Os Candidal Intertrigo, refractory to topical therapy, acute, present on admission, active - intertrigo of inguinal, intergluteal, and submammary regions - start on fluconazole 150 mg weekly x4 weeks (will give first dose today, will need to schedule remaining doses) - intertrigo care: wash area w/mild antibacterial soap daily dry / compress with absorbent material or drying agents such as anhydrous aluminum acetate apply ketoconazole cream daily for 14 days Acute diarrhea, present on admission, active -GI pathogen panel Generalized weakness, acute on chronic, present on admission, active - In the setting of acute UTI and underlying, progressive debility and deconditioning DM 2T, chronic condition, present on admission, active, uncontrolled - A1c 7.6 (09/2019), check A1C - AC/HS, SSI. Hold home oral anti-glycemics Back pain with right sciatica, chronic condition, present on admission, active MRI lumbar spine without contrast, 02/26/2019, re: low back pain Slight interval progression of right-sided subarticular narrowing as above at L4-L5, otherwise grossly unchanged examination since 02/25/2018 Essential hypertension, chronic condition, present on admission, stable - vital signs stable, continue trending - resume MANAGER CAREER antihypertensive regimen Full Code. Patient denies having a health directive. She designates her son, Vignesh, as a surrogate decision maker. Patient was unable to recall her medications. A communication order was placed to nursing to clarify meds with son. VTE prophylaxis w/ SQ heparin and SCDs (if pt tolerates) Quality VTE Deep Vein Thrombosis/Pulmonary Embolism Present on Admission: No
[2020-01-04 06:28] VITALS: BP 116/59; PULSE 83; RESP 16; TEMP 36.4; O2SAT 92
[2020-01-04 08:00] VITALS: BP 124/60; PULSE 75; RESP 20; TEMP 36.7; O2SAT 95
[2020-01-04] MEDS: KETOCONAZOLE 2% CREAM 15 GM 1 APPLIC TOP (10:18)
[2020-01-04] MEDS: NYSTATIN POWDER 15GM 1 APPLIC TOP ×3 (10:18→20:58)
[2020-01-04] MEDS: FLUCONAZOLE 150 MG TABLET PO (10:18)
--- NOTE | 2020-01-04 11:06 | PC.NURSE ---
Day Shift- Per pt request, called her Son Silvio, left message to call pt back. Called around 1015. Home med list retrieved from pt, made copy and placed in chart as well as updated med list in computer. Pt also reported taking 1000mg Tylenol 4 times daily for chronic pain management.
[2020-01-04 12:00] VITALS: BP 132/72; PULSE 80; RESP 20; TEMP 36.4; O2SAT 97
--- NOTE | 2020-01-04 12:41 | PT-IP ANOTE ---
pt refusing PT. stated that she knows she will have more pain when she moves and that she does not want to fall and therefore refusing to do PT. educated pt on objective/benefits of PT but pt refused PT. obtained home set up and pt stated that she spends most of her time in bed but has 13 steps to get to her apartment. stated the her caregiver and son pushes her up the stairs from behind and that she is able to manage. informed pt that PT will check again later today if pt changes her mind regarding PT. Pt understood.
[2020-01-04] MEDS: ACETAMINOPHEN 325 MG TABLET 975 MG PO ×2 (13:07→20:57)
[2020-01-04] MEDS: HEPARIN 5,000 UNIT/ML VIAL 5000 UNIT SUBCUT ×2 (13:15→20:58)
--- NOTE | 2020-01-04 15:39 | PT.IIE ---
Surgical History (This Medical Record has been edited. Action required.) Hx of heart surgery (Resolved 1991) Hx of surgical procedure (Resolved 03/2018) Status post cholecystectomy (1984) Status post coronary artery bypass graft (06/2012) Status post hysterectomy (1985) Status post tubal ligation Medical History (This Medical Record has been edited. Action required.) Anemia (Chronic 1996) Arthritis (Chronic Unknown) Asthma (Chronic 1979) Cardiac arrhythmia (Chronic 1991) Cataracts, bilateral (Chronic 1996) Chickenpox (Resolved) Chickenpox (Resolved) CKD (chronic kidney disease) (Chronic 1979) COPD (chronic obstructive pulmonary disease) (Chronic 1979) Coronary artery disease (Chronic) Coronary artery disease (Chronic 1991) Depression (Chronic 1979) Diabetes (Chronic 1988) Diabetic polyneuropathy (Chronic) Essential hypertension (Chronic) Gastroesophageal reflux disease (Chronic) GERD (gastroesophageal reflux disease) (Chronic 1978) Hyperlipemia (Chronic Unknown) Hyperlipidemia (Chronic) Hypertension (Chronic 1991) Iron deficiency (Resolved) Lower back pain (Chronic 12/2015) Lower extremity edema (Chronic) Measles (Resolved) Myocardial infarction (Resolved 1991) Neuropathy (Chronic Unknown) Osteoarthritis (Chronic) Psoriasis (Chronic 2014) Skin cancer (Resolved 2007) Stage 3 chronic kidney disease (Chronic) Type 2 diabetes mellitus (Resolved) Physical Therapy Inpatient Evaluation/Re-Eval M1 PT/OT-IP Prior Functional Status Start: 01/04/20 18:21 Freq: NEEDED Status: Active Protocol: Document 01/04/20 15:39 AB (Rec: 01/04/20 18:43 AB [email or web address]) Medical Review Prior Functional Status Medical History Reviewed Yes Communication able to make needs known Mobility and Gait per caregiver: pt was able to ambulate using FWW with assist for transfers ~ 1 1/2 week ago but was needing increase assistance due to RLE pain and has not been getting out of the bed much. Prior Functional Level (Other details) pt stated that she has a caregiver that comes in ~ 9-2 and sometimes until 4 pm to assist her. Has her son to assist her when caregiver is not around. usually does not have caregivers on the weekends Social History Household Members children Living Arrangements Apartment/Condo Number of Stairs To Enter/Railing? has 13 steps with bilateral rails to get to her apartment Home Environment Standard Height Toilet,Walk in Shower Home Equipment Front Wheel Walker,Shower Seat without Backrest,Hand Held Shower,Grab Bars In Shower M2 PT-IP Current Condition Start: 01/04/20 18:21 Freq: NEEDED Status: Active Protocol: Document 01/04/20 15:39 AB (Rec: 01/04/20 18:43 AB [email or web address]) Physical Therapy Current Condition Current Condition Evaluation Date 01/04/20 Treatment Diagnosis RLE sciatica; weakness Onset Date 01/03/2020 Precautions Lumbar Precautions Log Roll,No Twisting,Limit Bending,Lifting Restriction of 10 lbs M3 PT-IP Subjective Start: 01/04/20 18:21 Freq: NEEDED Status: Active Protocol: Document 01/04/20 15:39 AB (Rec: 01/04/20 18:43 AB [email or web address]) Subjective Physical Therapy Visit Type Type Initial Evaluation Visit Start Time 15:57 Visit Stop Time 17:25 Total Visit Minutes 37 Notes pt seen for split visits: 1557 to 1548 and 1657 to 1725 Number of CONTROLLED AREA CHECKER Visits 0 Physical Therapy Visit Comments Patient Comments pt refusing this morning and checked again this afternoon multiple times for PT eval. Talked to Dr. Pitts regarding pt's refusal. talked to pt and pt then agreed to do PT but is hesistant in participating requiring increarse encouragement and motivation. Therapy Pain Assessment Pain When Pain Assessed During Mobility Pain Present Pain Present Pain Reported Location Lower Back Intensity 6 Scale Used Numeric (1 - 10) Pain Behaviors Facial Grimacing,Guarding Pain Management Techniques Apply Cold,Distraction,Re- positioning,Timing of Activity with Medications M4 PT-IP Mobility and Gait Start: 01/04/20 18:21 Freq: NEEDED Status: Active Protocol: Document 01/04/20 15:39 AB (Rec: 01/04/20 18:43 AB [email or web address]) PT-Bed Mobility Assessment Rolling Type of Rolling Log Rolling Level of Assist Maximal Assistance,2 Person Assistance Supine to Sit Supine to Sit Maximum Assistance,2 Person Assistance,Head of Bed Elevated,Bedrails Scooting Scooting to Edge of Bed Dependent PT-Transfer Assessment Sit to and From Stand Sit to and from Stand Moderate Assistance,Maximum Assistance,2 Person Assistance ,Use of Upper Extremities Equipment Transfer Assistive Device Gait Belt,Front Wheeled Walker Orthotic/Prosthetic Devices or Brace: No Transfers Transfer Destination Chair Transfer Technique Stand Step Pivot Transfer Ability Level of Assist Moderate Assistance,1 Person Assistance,Use of Upper Extremities Comments Mobility Comments pt completed supine to sit log roll max A x 2 and max cues. c/o increase RLE pain. initially requiring max A to maintain sitting balance on EOb. required total A to scoot towards EOB and positioned. after positioning , pt was able to sit SBA. completed sit to stand mod A x 2 and max cues. pt was able to maintain standing using FWW for support mod A and completed step transfer to the chair using FWW mod A and cues. positioned pt on the chair. call light and table placed within reach. PT-Balance Assessment Sitting Balance and Reactions Static Sitting Balance Ability Good Dynamic Sitting Balance Ability Fair Standing Balance and Reactions Static Standing Balance Ability Fair Dynamic Standing Balance Ability Poor Device Used FWW M5 PT-IP Objective Assessments Start: 01/04/20 18:21 Freq: NEEDED Status: Active Protocol: Document 01/04/20 15:39 AB (Rec: 01/04/20 18:43 AB [email or web address]) Orientation Orientation/Cognition Level of Alertness Alert Orientation Name,Age,Place,Situation Language Function Ability No Deficits Noted Safety Awareness Decreased Safety Awareness Gross Range of Motion Lower Extremity ROM Assessment Within Functional Limits Strength Lower Extremity Strength Assessment Bilaterally Impaired Hip 3+/5 Knee 3+/5 M6 PT-IP Treatment Start: 01/04/20 18:21 Freq: NEEDED Status: Active Protocol: Document 01/04/20 15:39 AB (Rec: 01/04/20 18:43 AB [email or web address]) Physical Therapy Treatment Education Education Provided Precautions,Safety M7 PT-IP Assessment and Plan Start: 01/04/20 18:21 Freq: NEEDED Status: Active Protocol: Document 01/04/20 15:39 AB (Rec: 01/04/20 18:43 AB [email or web address]) PT Summary Assessment and Plan Potential Rehabilitation Potential Fair Status of Condition at Evaluation Evolving Summary Impairments Pain,ROM,Strength,Balance, Coordination,Sensation,Bed Mobility,Transfers,Gait, Activity Tolerance Assessment Summary pt requires 2 person assist with bed mobility and sit to stand but able to stand step transfer using FWW mod A once pt is standing. d/c plan depending on how much assistance caregiver/son will be able to provide at home and also pt has 13 steps to get into the house and has to be able to safely complete if pt is going home. pt at this time will require 24/7 assist or have to go to SNF rehab. will continue to assess progress. Goals Bed Mobility Goal Minimal Assistance Transfer Goal Minimal Assistance,Front Wheeled Walker Gait Goal Minimal Assistance,Front Wheel Walker Gait Distance 100 Other Goals up/down 13 steps using bilateral rails min A Days to Meet Goals 10 Frequency of Treatment Frequency Of Treatment Once a Day Treatment Plan Physical Therapy Treatment Plan Bed Mobility Training,Transfer Training,Gait Training, Therapeutic Exercise,Balance Retraining,Post Op Education, Discharge Planning,Hot or Cold Pack,Neuromuscular Re-ed, Coordination Retraining,Manual Therapy Other Recommendations and Next Treatment transfers, ambulation; Focus caregiver trainin am 01/04 Recommendations To Nursing Amount of Assist Needed 2 Person Assist Discharge Recommendations PT Discharge Recommendations Home with Assistance,Home with 24/7 Assist,SNF Rehab Other Discharge Recommendations depending on progress: SNF vs home with 24/7 and HHPT Transportation Needs at Discharge Private Vehicle,Wheelchair/ Cabulance
--- NOTE | 2020-01-04 16:00 | CM.DANOTE ---
Discharge Planning/Care Management DCP: assessment: Case received and met now with pt and one of her caregivers: Jossie Lerma. Introduced self and role. Pt is found lying in bed and appearing groggy and somewhat dazed. She agrees to have discussion continue with Jossie in the room and Jossie provided most of the information. Pt is a 64 year old female who admitted to care of hospitalist team last night. PCP: Bar Null. Admission status: OBS: thus far: confirmed by [facility] CHEMA Serna Payer: Medicare and Medicaid. Pt lives in a building that she shares with her son Vignesh. He is in the lower apt. She resides upstairs /13 steps to get to her apt. Pt is under JENNI program: AMANDA Denise: [facility]. She has caregivers from [facility] agency: Jossie is there [facility] another caregiver is there Friday and . Son is caregiver over the weekend. It sounds like this may not be adequate for pt 's needs at this point. Dr. Pitts has just called office 1t 1610 to talk with CHRISTINA Ross. She says she is putting in an CHILD'S NURSE consult to follow on this case. Will defer to the DCP team on for tomorrow to further discusse. Vandana will leave handoff note for CHRISTINA Lucio. Discharge Assessment Start: 01/04/20 15:58 Freq: Status: Active Protocol: Document 01/04/20 15:59 ITV (Rec: 01/04/20 16:00 ITV [id number]) Discharge Planning Assessment Advance Directives? No Prior Living Arrangements Apartment/Condo Independent with ADL's No Is patient alert and oriented? No: not at time of assessment Whiteboard Updated in Patient Room with Yes name and ext. # of Motor Scooter Mechanic Review Status In Process
[2020-01-04 16:11] VITALS: BP 151/58; PULSE 89; RESP 19; TEMP 36.7; O2SAT 92
[2020-01-04 18:48] LABS: Add Manual Diff / Slide Review NO; Basophils Absolute Auto 0 /uL (0-100); Basophils Percent Auto 0.5 % (0-2); Eosinophils Absolute Auto 200 /uL (0-450); Eosinophils Percent Auto 3.1 % (2-4); Hematocrit 39.2 % (36-46); Lymphocytes Absolute Auto 1600 /uL (1100-4500); Lymphocytes Percent Auto 21.3 % (25-40); Mean Corpuscular HGB Conc 33.1 % (30-36); Mean Corpuscular Hemoglobin 28.7 PG (26-34); Mean Corpuscular Volume 86.5 fL (80-100); Monocytes Absolute Auto 500 /uL (0-900); Monocytes Percent Auto 6.5 % (3-14); Neutrophils Absolute Auto 5300 /uL (1500-7000); Neutrophils Percent Auto 68.6 % (50-75); Platelet Count 251 X10^3/uL (150-400); Red Blood Cell Count 4.53 X10^6/uL (4.0-5.2); Red Cell Distribution Width 16.5 % (11.6-14.8); White Blood Cell Count 7.7 X10^3/uL (4.5-11.0)
[2020-01-04 18:53] LABS: BUN Creatinine Ratio 19.1 (6-22); Blood Urea Nitrogen 42 mg/dL (7-17); Calcium 8.9 mg/dL (8.4-10.2); Carbon Dioxide 19 mmol/L (22-32); Chloride 104 mmol/L (98-107); Estimated Glomerular Filt Rate 22.3 mL/min (>60); Glucose 209 mg/dL (80-110); HEMOLYSIS < 15 (0-50); Magnesium 1.5 mg/dL (1.6-2.3); Potassium 4.3 mmol/L (3.4-5.1); Sodium 135 mmol/L (137-145)
[2020-01-04 18:56] LABS: C-Reactive Protein Quant 3.4 mg/dL (<1.0)
[2020-01-04 19:22] LABS: Erythrocyte Sedimentation Rate 58 MM/HR (0-20)
[2020-01-04 19:49] VITALS: BP 118/61; PULSE 82; RESP 18; TEMP 36.3; O2SAT 94
[2020-01-04] MEDS: CEFTRIAXONE 1 GM/50 ML FROZ.PIGGY IV (20:57)
[2020-01-04] MEDS: SODIUM CHLORIDE 0.9% FLUSH 10 ML IV (20:58)
--- NOTE | 2020-01-04 22:45 | PC.NURSE ---
Rosy shift note: Patient up out of bed with PT, 2PA with FWW. Sitting up for dinner. Ambulated from chair to bed, steady gait, requires frequent cues, and reassurance. Very fearful of falling and guarded with mobility. Repositioned while in bed, patient tried to assist as possible. FC output 250 ml this shift. Son at bedside this shift providing supportive care. Jossie Caregiver at bedside, expressed concern regarding patients decline in mobility and safety concerns. Call staff appropriately, high fall risk precautions in place. Call light within reach.
[2020-01-05] VITALS (7 sets, daily range): BP systolic 114–151; BP diastolic 61–90; PULSE 71–95; RESP 16–18; TEMP 36.1–36.9; O2SAT 92–96; BMI 39.9
[2020-01-05] MEDS: ACETAMINOPHEN 325 MG TABLET 975 MG PO ×3 (04:00→19:29)
[2020-01-05] MEDS: HEPARIN 5,000 UNIT/ML VIAL 5000 UNIT SUBCUT ×2 (05:54→20:46)
--- NOTE | 2020-01-05 07:44 | PC.NURSE ---
Patient had a hard time getting comfortable this night, we offered many solutions for movement and adjusting positions, patient didn't seem to be interested in these ideas and stated that she tends to sleep on her stomach at home. Patient did not want lab draws at AM lab time, Lab said they would come back at [id number]. Blood sugar checks added. BS 154 on this shift. Patient complains of 1-4/10 pain in R leg and lower back. Medicated with Tylenol.
--- NOTE | 2020-01-05 08:22 | P.PN_ITS ---
Subjective Subjective Date Patient Seen: 01/05/20 Interval history: Elizabeth Prince is a 64-year-old female with past medical history significant for coronary artery disease status post FL and CABG x2 vessels, hypertension, hyperlipidemia, CHF, diabetes mellitus type 2, non-insulin using, with complication of polyneuropathy and chronic kidney disease stage 3 COPD/asthma, iron deficiency anemia, chronic pain (OA, sciatica), psoriasis, and severe untreated depression who presented to the ED with progressive worsening weakness and urinary incontinence. The patient is resting in bedside chair comfortably. She is slightly brighter today but remains severely depressed. Discussed her severe untreated major depression which seems to be the driving factor to her debility and progressive weakness and treatment options including cognitive behavioral therapy and antidepressants. The patient informs me that she was previously on an antidepressant that stopped working or began giving her ?bad thoughts.? Inquired to whether the patient has suicidal or homicidal ideations which she denies and states that she would ?not act the out if she did.? She informs me that her sister last August and has not ?grieved about this.? The patient is willing to try another antidepressant specifically escitalopram for which her PCP recommended to both her and her son. Also recommended cognitive behavioral therapy. She has no other complaints and denies headache, shortness of breath, chest pain, abdominal pain, nausea, vomiting, fever, chills, dysuria, diarrhea or constipation. She is voiding via Lane catheter which we plan to remove today. Continue to monitor postvoid residuals thereafter. She has not had a bowel movement since admission and a bowel regimen has been implemented and plan for rectal suppository this evening. She is up ambulating with assistance. Exam Vital Signs (past 8 hours): - 01/05/20 04:00 Temperature 97.5 F L Pulse Rate 95 H Respiratory Rate 16 Blood Pressure 114/65 Pulse Oximetry 95 Oxygen Delivery Method Room Air Oxygen Flow Rate 0 Narrative Exam Narrative: General: Older female sitting in bedside chair and in no acute distress, appears older than stated age in chronically ill, well-developed, well- nourished, severely depressed with flat affect and slightly withdrawn but otherwise appropriately interactive. HEENT: Normocephalic, atraumatic. External ears without defect. Pupils equal, round, and reactive to light. Anicteric sclerae, moist conjunctivae, and no lid lag. Neck: Supple with full range of motion. No lymphadenopathy or thyromegaly. Cardiovascular: Regular rate and rhythm without murmurs, rubs, or gallops appreciated. Pulmonary: Clear to auscultation bilaterally without crackles, wheezes, or rhonchi. Normal respiratory effort with no use of accessory muscles. Abdomen: Soft, bowel sounds present, nontender, nondistended. No hepatosplenomegaly or masses appreciated. Extremities: No clubbing, cyanosis, or edema. Skin: Normal temperature, turgor, and texture; no rash, ulcers, or subcutaneous nodules appreciated. Neurological: Cranial nerves grossly intact. Generalized weakness with no focal neurological deficits. Psychiatric: Severely depressed mood with emotional lability and flat affect. Alert and oriented to person, place, and time. Objective Labs Result Diagrams: 01/05/20 08:05 01/05/20 08:05 Labs: Laboratory Results - last 24 hr 01/04/20 01/04/20 01/04/20 18:29 18:29 18:29 WBC 7.7 RBC 4.53 Hgb 13.0 Hct 39.2 MCV 86.5 MCH 28.7 MCHC 33.1 RDW 16.5 H Plt Count 251 Neut % (Auto) 68.6 Lymph % (Auto) 21.3 L [place] % (Auto) 6.5 Eos % (Auto) 3.1 Baso % (Auto) 0.5 Neut # (Auto) 5300 Lymph # (Auto) 1600 [place] # (Auto) 500 Eos # (Auto) 200 Baso # (Auto) 0 ESR 58 H Sodium 135 L Potassium 4.3 Chloride 104 Carbon Dioxide 19 L BUN 42 H Creatinine 2.20 H Estimated GFR 22.3 L BUN/Creatinine Ratio 19.1 Glucose 209 H Calcium 8.9 Magnesium 1.5 L C-Reactive Protein 01/04/20 18:29 WBC RBC Hgb Hct MCV MCH MCHC RDW Plt Count Neut % (Auto) Lymph % (Auto) [place] % (Auto) Eos % (Auto) Baso % (Auto) Neut # (Auto) Lymph # (Auto) [place] # (Auto) Eos # (Auto) Baso # (Auto) ESR Sodium Potassium Chloride Carbon Dioxide BUN Creatinine Estimated GFR BUN/Creatinine Ratio Glucose Calcium Magnesium C-Reactive Protein 3.4 H Assessment & Plan Assessment & Plan narrative: Elizabeth Prince is a 64-year-old female with past medical history significant for coronary artery disease status post FL and CABG x2 vessels, hypertension, hyperlipidemia, CHF, diabetes mellitus type 2, non-insulin using, with complication of polyneuropathy and chronic kidney disease stage 3 COPD/asthma, iron deficiency anemia, chronic pain (OA, sciatica), psoriasis, and severe untreated depression who presented to the ED with progressive worsening weakness and urinary incontinence. 1. Acute urinary tract infection, present on admission. Stable. -Urinalysis appeared mildly infected and urine culture preliminarily growing gram-negative bacilli. 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 -Received ceftriaxone 1 g IV x1 in ED. Continue ceftriaxone 1 g IV daily pending urine culture identification and sensitivities. -Blood culture x2 has no growth to date. -Discontinued Lane catheter. Continue to monitor postvoid residual. 2. Probable acute kidney injury on chronic kidney disease stage 4, present on admission. Active. -Likely secondary to UTI and urinary retention with incontinence. -Baseline creatinine appears to be between 1.8-2.0. Initial creatinine 2.20 and trended up to 2.30. -Avoid nephrotoxin agents and optimize renal perfusion. Held losartan. -Continue to monitor creatinine daily. 3. Acute on chronic constipation with small and large bowel ileus, present on admission. Active. -Patient reports recent loose watery stool likely branch service representative of encoparesis. -CT abdomen and pelvis with contrast demonstrated possible small and large bowel ileus. -Implemented bowel regimen with MiraLax 17 g daily and Colace 100 mg twice daily. Plan for bisacodyl suppository and possible mineral oil today. -GI stool PCR ordered but patient has not had loose watery stool and cancelled. 4. [place] Intertrigo, refractory to topical therapy, acute, present on admission, active -Patient has intertrigo of inguinal, intergluteal, and submammary regions due to chronically lying prone without position changes. -Received fluconazole 150 mg x 1. -Intertrigo care: -Wash area with mild antibacterial soap daily. -Dry / compress with absorbent material or drying agents such as anhydrous aluminum acetate. -Apply ketoconazole cream daily for 14 days. 5. Severe untreated major depressive disorder with recent grief, chronic, present on admission. Active. -Patient is severely depressed and lost her sister recently and reports she has not addressed grief. -Patient is amenable to SSRI and have started escitalopram 10 mg daily. Continue to monitor patient closely for suicidal and/or homicidal ideations. May consider titrating up to 20 mg daily for full efficacy per PCP. -Highly recommended referral to outpatient cognitive behavioral therapy per PCP. 6. Acute on chronic generalized weakness with debility, present on admission. Active. -Acute portion in the setting of acute UTI. Chronic progressive debility and deconditioning highly driven by untreated depression as above. -Continue physical and occupational therapy evaluation treatment 7. Diabetes mellitus type 2, non-insulin using, chronic, present on admission. Stable. -Hemoglobin A1c 5.7% indicative excellent glycemic control and in the range of prediabetes. -Continue [facility] blood glucose checks and low-dose correctional scale insulin. -Patient no longer taking metformin due to advanced CKD. Discontinued glipizide as patient is at high risk of hypoglycemia. 8. Coronary artery disease, chronic, present on admission. Stable. -Continue atorvastatin 20 mg daily at bedtime. Held clopidogrel for scheduled epidural steroid injection. 9. Chronic back pain with right-sided sciatica, present on admission. Stable. -MRI lumbar spine without contrast on 02/26/2019 demonstrated slight interval progression of right-sided subarticular narrowing as above at L4-L5, otherwise grossly unchanged examination since 02/25/2018. -Patient has scheduled epidural steroid injection on 01/10/[address] Ferrer. Held clopidogrel for upcoming procedure. 10. Hypertension, chronic, present on admission. Stable. -Blood pressure remains normotensive with occasional spike in SBP to 150. -Held losartan due to probable acute kidney injury. Code status: Full Code. Patient denies having a health directive. She designates her son, Vignesh, as a surrogate decision maker. VTE prophylaxis: SQ Heparin and SCDs Disposition: Patient likely to discharge home tomorrow with home health once urine culture identification and sensitivities result and patient has had a BM. Quality VTE Deep Vein Thrombosis/Pulmonary Embolism Present on Admission: No
[2020-01-05 08:40] LABS: Add Manual Diff / Slide Review NO; Basophils Absolute Auto 100 /uL (0-100); Basophils Percent Auto 0.8 % (0-2); Eosinophils Absolute Auto 300 /uL (0-450); Eosinophils Percent Auto 3.9 % (2-4); Hemoglobin 12.7 g/dL (12.0-16.0); Lymphocytes Absolute Auto 1900 /uL (1100-4500); Lymphocytes Percent Auto 25.8 % (25-40); Mean Corpuscular HGB Conc 32.6 % (30-36); Mean Corpuscular Hemoglobin 28.5 PG (26-34); Mean Corpuscular Volume 87.3 fL (80-100); Monocytes Absolute Auto 500 /uL (0-900); Monocytes Percent Auto 7.1 % (3-14); Neutrophils Absolute Auto 4500 /uL (1500-7000); Neutrophils Percent Auto 62.4 % (50-75); Platelet Count 223 X10^3/uL (150-400); Red Blood Cell Count 4.47 X10^6/uL (4.0-5.2); Red Cell Distribution Width 16.5 % (11.6-14.8); White Blood Cell Count 7.3 X10^3/uL (4.5-11.0)
[2020-01-05 09:09] LABS: BUN Creatinine Ratio 18.7 (6-22); Blood Urea Nitrogen 43 mg/dL (7-17); Calcium 8.9 mg/dL (8.4-10.2); Carbon Dioxide 22 mmol/L (22-32); Chloride 104 mmol/L (98-107); Estimated Glomerular Filt Rate 21.2 mL/min (>60); Glucose 150 mg/dL (80-110); HEMOLYSIS < 15 (0-50); Potassium 4.1 mmol/L (3.4-5.1); Sodium 136 mmol/L (137-145)
--- NOTE | 2020-01-05 09:57 | OT.IP.EVAL ---
Past Medical History (This Medical Record has been edited. Action required.) Anemia (Chronic 1996) Arthritis (Chronic Unknown) Asthma (Chronic 1979) Cardiac arrhythmia (Chronic 1991) Cataracts, bilateral (Chronic 1996) Chickenpox (Resolved) Chickenpox (Resolved) CKD (chronic kidney disease) (Chronic 1979) COPD (chronic obstructive pulmonary disease) (Chronic 1979) Coronary artery disease (Chronic) Coronary artery disease (Chronic 1991) Depression (Chronic 1979) Diabetes (Chronic 1988) Diabetic polyneuropathy (Chronic) Essential hypertension (Chronic) Gastroesophageal reflux disease (Chronic) GERD (gastroesophageal reflux disease) (Chronic 1978) Hyperlipemia (Chronic Unknown) Hyperlipidemia (Chronic) Hypertension (Chronic 1991) Iron deficiency (Resolved) Lower back pain (Chronic 12/2015) Lower extremity edema (Chronic) Measles (Resolved) Myocardial infarction (Resolved 1991) Neuropathy (Chronic Unknown) Osteoarthritis (Chronic) Psoriasis (Chronic 2014) Skin cancer (Resolved 2007) Stage 3 chronic kidney disease (Chronic) Type 2 diabetes mellitus (Resolved) Surgical History (This Medical Record has been edited. Action required.) Hx of heart surgery (Resolved 1991) Hx of surgical procedure (Resolved 03/2018) Status post cholecystectomy (1984) Status post coronary artery bypass graft (06/2012) Status post hysterectomy (1985) Status post tubal ligation Occupational Therapy Inpatient Evaluation/Re-Eval M1 PT/OT-IP Prior Functional Status Start: 01/04/20 18:21 Freq: NEEDED Status: Active Protocol: Document 01/04/20 15:39 AB (Rec: 01/04/20 18:43 AB [email or web address]) Medical Review Prior Functional Status Medical History Reviewed Yes Communication able to make needs known Mobility and Gait per caregiver: pt was able to ambulate using FWW with assist for transfers ~ 1 1/2 week ago but was needing increase assistance due to RLE pain and has not been getting out of the bed much. Prior Functional Level (Other details) pt stated that she has a caregiver that comes in ~ 9-2 and sometimes until 4 pm to assist her. Has her son to assist her when caregiver is not around. usually does not have caregivers on the weekends Social History Household Members children Living Arrangements Apartment/Condo Number of Stairs To Enter/Railing? has 13 steps with bilateral rails to get to her apartment Home Environment Standard Height Toilet,Walk in Shower Home Equipment Front Wheel Walker,Shower Seat without Backrest,Hand Held Shower,Grab Bars In Shower M1 PT/OT-IP Prior Functional Status Start: 01/05/20 12:09 Freq: NEEDED Status: Active Protocol: Document 01/05/20 12:09 [facility] (Rec: 01/05/20 12:43 [facility] [email or web address]) Medical Review Prior Functional Status Medical History Reviewed Yes Communication able to make needs known Mobility and Gait per caregiver: pt was able to ambulate using FWW with assist for transfers ~ 1 1/2 week ago but was needing increase assistance due to RLE pain and has not been getting out of the bed much. Activities of Daily Living and IADL's Caregiver states assist with LB dressing, toileting, and bathing needs and when caregiver not present, son is able to assist. Prior Functional Level (Other details) pt stated that she has a caregiver that comes in ~ 9-2 and sometimes until 4 pm to assist her. Has her son to assist her when caregiver is not around. usually does not have caregivers on the weekends Social History Household Members children Living Arrangements Apartment/Condo Number of Stairs To Enter/Railing? has 13 steps with bilateral rails to get to her apartment Home Environment Standard Height Toilet,Walk in Shower Home Equipment Front Wheel Walker,Shower Seat without Backrest,Hand Held Shower,Grab Bars In Shower M2 OT-IP Current Condition Start: 01/05/20 12:09 Freq: Status: Active Protocol: Document 01/05/20 12:09 [facility] (Rec: 01/05/20 12:43 [facility] [email or web address]) Occupational Therapy Current Condition Current Condition Evaluation Date 01/05/20 Treatment Diagnosis RLE sciatica, weakness Diagnosis Onset Date 01/05/20 Weight Bearing Status Weight Bearing Status Weight Bear as Tolerated M3 OT- IP Subjective and Pain Start: 01/05/20 12:09 Freq: Status: Active Protocol: Document 01/05/20 12:09 [facility] (Rec: 01/05/20 12:43 [facility] [email or web address]) OT- Subjective Occupational Therapy Visit Type Type Initial Evaluation Visit Start Time 09:21 Visit Stop Time 11:14 Total Visit Minutes 70 Notes Pt seen twice, second time needed for caregiver training. Occupational Therapy Visit Comments Patient Comments Pt needing lots of encouragement to participate in therapy session. Patient/Caregiver Goals Pt wants to go home. OT Pain Assessment Pain When Pain Assessed During Mobility Pain Present Pain Present Pain Reported Location Lower Back Intensity 2 M4 OT- IP ADL's Start: 01/05/20 12:09 Freq: Status: Active Protocol: Document 01/05/20 12:09 [facility] (Rec: 01/05/20 12:43 [facility] [email or web address]) OT [id number] Comments OT Self-Feeding Comments Not at meal time. OT ADL-Grooming Comments OT Grooming Comments Pt needing assist for completeness to brush her hair. OT ADL-Dressing General Eval Lower Body Dressing Ability Maximum Assistance Areas Needing Assistance Socks,Shoes Comments OT Dressing Comments MAX A to doff socks and to nadine her lace on shoes. OT ADL-Toileting General Evaluation Toileting Ability Maximum Assistance Areas Needing Assistance Manage Clothing,Perform Perineal Hygiene Devices Toileting Assistive Devices Grab Bars Comments OT Toileting Comments Pt needing assist for hygiene as unable to reach to wipe. Assist to help nadine/doff brief as well. OT ADL-Bathing Comments OT Bathing Comments Not performed. M5 OT- IP IADL's Start: 01/05/20 12:09 Freq: Status: Active Protocol: Document 01/05/20 12:09 [facility] (Rec: 01/05/20 12:43 [facility] [email or web address]) OT-Instrumental Activities of Daily Living Medication Management Medication Management Comments Pt states able to do her own medications. Money Management Money Management Comments Pt states writes money orders for bills. Meal Preparation Meal Preparation Caregiver Provides Assist Senior Tax Manager Senior Tax Manager Caregiver Provides Assist Driving Driving Caregiver Provides Assist M6 OT- IP Functional Cognition Start: 01/05/20 12:09 Freq: Status: Active Protocol: Document 01/05/20 12:09 [facility] (Rec: 01/05/20 12:43 [facility] [email or web address]) Cognitive Factors Limiting Selfcare Function Cognitive Ability Level of Alertness Alert Patient Orientation Name,Place,Situation Attention Span Ability Capable of Focused Attention, Capable of Sustained Attention Ability to Follow Commands Able to Follow One Step Commands Safety Awareness Underestimates Need for Assistance Problem Solving Ability Needs Assist to Identify Solutions Cognitive Comments Cognitive Assessment Comments Pt needing lots of vc for motivation and encouragement to participate in therapy. Pt states that she can not walk, however after getting up able to walk with assist. Pt tends to self limit herself from fully participating in her needs. OT- Vision and Hearing OT- Hearing Assessment OT- Hearing Assessment WFL M7 OT- IP Mobility and Balance Start: 01/05/20 12:09 Freq: Status: Active Protocol: Document 01/05/20 12:09 [facility] (Rec: 01/05/20 12:43 [facility] [email or web address]) OT-Transfer Assessment Sit to and From Stand Sit to and from Stand Minimal Assistance,Moderate Assistance,1 Person Assistance ,2 Person Assistance Transfers Transfer Ability Minimal Assistance,Moderate Assistance,1 Person Assistance ,2 Person Assistance Technique Transfer Destination Bed,Chair,Toilet Transfer Technique Stand Step Pivot Devices Transfer Assistive Devices Gait Belt,Front Wheeled Walker Comments Mobility Comments Initially needing MODA x 2 to stand and then if coming up from a higher surface needing from CURT to MOD x1. Pt able to walk with FWW with MODA and cues to keep the FWW closer to her. Caregiver present to be able to assist pt for needs . Bed rail suggested to help increase ease and independence for bed mobility needs. Suggested to the caregiver would be best to have wheel chair for the pt as now has limited mobility due to her RLE pain. OT- Balance Assessment Sitting Balance and Reactions Static Sitting Balance Ability Good Dynamic Sitting Balance Ability Fair Standing Balance and Reactions Static Standing Balance Ability Fair M8 OT- IP Objective Assessments Start: 01/05/20 12:09 Freq: Status: Active Protocol: Document 01/05/20 12:09 [facility] (Rec: 01/05/20 12:43 [facility] [email or web address]) OT Gross Range of Motion Upper Extremity Range of Motion Assessment Bilaterally Impaired OT Strength Upper Extremity Strength Assessment Bilaterally Impaired Shoulder 2+/5 Elbow 4-/5 Hand 4-/5 OT-Muscle Tone Assessment Muscle Tone WNL Yes M9 OT- IP Assessment and Plan Start: 01/05/20 12:09 Freq: Status: Active Protocol: Document 01/05/20 12:09 [facility] (Rec: 01/05/20 12:43 [facility] [email or web address]) OT Summary Assessment and Plan Potential Rehabilitation Potential Fair Analytic Complexity at Evaluation Low Summary OT Impairments Pain,Range of Motion,Strength, Balance,Coordination, Functional Cognition, Functional Mobility,Grooming, Dressing,Toileting,Bathing, Activity Tolerance Progress Towards Goals Slow Progress due to Pain,Slow Progress due to Activity Tolerance,Slow Progress due to Cognition Assessment Summary Pt low complexity and main barriers are pain, steps, and needing extensive assist for ADL's and functional mobility needs. Pt needing lots of encouragement to participate in needs and tends to want to be passive regarding her care, pt states I can just lie in bed all the time if I want to , when her caregiver encouraging her to get up and try to walk more. Pt would benefit from skilled rehab due to her de-conditioning of decreased activity tolerance. Otherwise, pt will need 24/7 assist for all needs and would benefit from home health. Goals Grooming Goal Minimal Assistance Dressing Goal Moderate Assistance Toileting Goal Moderate Assistance Toilet Transfer Goal Minimal Assistance Patient/Caregiver Education Goal Caregiver Independent Assisting Patient Days to Meet Goals 2 Frequency of Treatment Frequency Of Treatment Once a Day Treatment Plan OT Treatment Plan ADL Training,Functional Cognition Training,Functional Mobility,Patient/Family Education,Discharge Planning Other Treatment Recommendations and Next caregiver training Treatment Focus Discharge Recommendations OT Discharge Recommendations Home with Assistance,Home with 24/7 Assist,Home Health,SNF Rehab Home Equipment Needs w/c, FWW, BSC Transportation Needs at Discharge Private Vehicle
--- NOTE | 2020-01-05 10:30 | PT.IPTN ---
Physical Therapy Treatment Note M2 PT-IP Current Condition Start: 01/04/20 18:21 Freq: NEEDED Status: Active Protocol: Document 01/04/20 15:39 AB (Rec: 01/04/20 18:43 AB [email or web address]) Physical Therapy Current Condition Current Condition Evaluation Date 01/04/20 Treatment Diagnosis RLE sciatica; weakness Onset Date 01/03/2020 Precautions Lumbar Precautions Log Roll,No Twisting,Limit Bending,Lifting Restriction of 10 lbs M3 PT-IP Subjective Start: 01/04/20 18:21 Freq: NEEDED Status: Active Protocol: Document 01/05/20 10:30 AB (Rec: 01/05/20 12:33 AB [id number]) Subjective Physical Therapy Visit Type Type Treatment Note Visit Start Time 10:30 Visit Stop Time 11:10 Total Visit Minutes 40 Notes Pt's tx plan is once a day but seen twice today. pt worked with PT already earlier today but seen again for further assessment and caregiver training to determine safe d/c plan. pt will continue with once a day tx plan Number of OUTPATIENT THERAPIST Visits 0 Physical Therapy Visit Comments Patient Comments caregiver present for training Therapy Pain Assessment Pain When Pain Assessed At Rest Pain Present Pain Present Pain Reported Location Lower Back Intensity 6 Scale Used increases with mobility Pain Management Techniques Apply Cold,Distraction,Re- positioning,Timing of Activity with Medications M4 PT-IP Mobility and Gait Start: 01/04/20 18:21 Freq: NEEDED Status: Active Protocol: Document 01/05/20 10:30 AB (Rec: 01/05/20 12:33 AB [id number]) PT-Bed Mobility Assessment Rolling Level of Assist Maximal Assistance,1 Person Assistance Supine to Sit Supine to Sit Maximum Assistance,2 Person Assistance,Bedrails Sit to Supine Sit to Supine Maximum Assistance,1 Person Assistance,2 Person Assistance ,Bedrails PT-Transfer Assessment Sit to and From Stand Sit to and from Stand Moderate Assistance,1 Person Assistance,Use of Upper Extremities Equipment Transfer Assistive Device Gait Belt,Front Wheeled Walker Orthotic/Prosthetic Devices or Brace: No Transfers Transfer Destination Wheelchair Transfer Technique ambulated using FWW Transfer Ability Level of Assist Moderate Assistance,1 Person Assistance,Use of Upper Extremities Comments Mobility Comments pt is hesistant to participate in PT and requires increase encouragement and motivation to participate. pt also directs her own care. caregiver present for training and has been assisting pt at home even prior to hospitalization and is familiar on how to assist pt. assisted pt with bed mobility max A x 2 with PT and caregiver assisting pt. caregiver able to put safety belt on and assist pt with ambulation to the w/c using FWW. completed up/down 3 steps using bilateral rails min to mod A and cues. caregiver was able to assist pt. pt stated that son will be at home and can assist her if needed. pt encouraged to ambulate farther and completed ~ 30 ft going back to the room but requires increase motivation to go farther. Caregiver also encouraging pt but pt stated that she can stay in bed the whole day if she wants to and refused further ambulation. c /o increase R low back and leg pain. pt ambulated from w/c to bed ~ 15 ft using FWW with caregiver assisting. pt completed sit to supine 2 person max A and cues. positioned pt in bed. call light and table placed within reach. ice pack provided. Gait Assessment Gait Gait Assistance Required: Moderate Assistance,1 Person Assist Distance (Feet) 30 Able to Maintain Weight Bearing Status Yes During Gait Assistive Devices Assistive Device Gait Belt,Front Wheeled Walker Orthotic/Prosthetic Devices or Brace: No Gait Deviations General Gait Pattern Antalgic,Decreased Stride Length,Decreased Feet Clearance,Step-to Gait Factors Limiting Gait Function Factors Limiting Gait Function Decreased Activity Tolerance, Decreased Strength,Limited Range of Motion,Pain,Poor Balance,Poor Safety Awareness Comments Gait Comments pls refer to mobility section for details Stair Climbing Assessment Evaluation Level of Assist On Stairs Moderate Assistance,1 Person Assistance Devices Stair Climbing Assistive Devices Left Railing,Right Railing Technique/Endurance Stair Climbing Direction Ascend and Descend Stair Climbing Technique Step to Step Number of Steps Climbed 3 Stair Climbing Set # Repetitions (reps) 1 Comments Stair Climbing Comments completed just one set of 3 steps and pt refused to repeat . M5 PT-IP Objective Assessments Start: 01/04/20 18:21 Freq: NEEDED Status: Active Protocol: Document 01/04/20 15:39 AB (Rec: 01/04/20 18:43 AB [email or web address]) Orientation Orientation/Cognition Level of Alertness Alert Orientation Name,Age,Place,Situation Language Function Ability No Deficits Noted Safety Awareness Decreased Safety Awareness Gross Range of Motion Lower Extremity ROM Assessment Within Functional Limits Strength Lower Extremity Strength Assessment Bilaterally Impaired Hip 3+/5 Knee 3+/5 M6 PT-IP Treatment Start: 01/04/20 18:21 Freq: NEEDED Status: Active Protocol: Document 01/05/20 10:30 AB (Rec: 01/05/20 12:33 AB [id number]) Physical Therapy Treatment Education Education Provided Safety Other Treatments Other Treatment Performed informed pt and caregiver that pt will need a FWW and a w/c for mobility. pt unable to tolerate much activity and will require a w/c for long distance mobility. assistant case manager aware. M7 PT-IP Assessment and Plan Start: 01/04/20 18:21 Freq: NEEDED Status: Active Protocol: Document 01/05/20 10:30 AB (Rec: 01/05/20 12:33 AB [id number]) PT Summary Assessment and Plan Potential Rehabilitation Potential Fair Summary Impairments Pain,ROM,Strength,Balance, Coordination,Sensation,Tone, Cognition,Bed Mobility, Transfers,Gait,Activity Tolerance Progress Towards Goals Slow Progress due to Pain,Slow Progress due to Activity Tolerance Assessment Summary pt requiring max A x 2 with bed mobility and mod A for transfers. pt plans to go home with a caregiver and her son to assist her. pt is inconsistent with her level of assistance and also requires increase encouragement to participate. pt will require SNF rehab to improve strength and mobility but hospitalization status, may not be able to go to SNF. If pt goes home, will need 24/7 assist and homehealth PT. informed pt and caregiver that she will need a FWW and a w/c . Goals Bed Mobility Goal Minimal Assistance Transfer Goal Minimal Assistance,Front Wheeled Walker Gait Goal Minimal Assistance,Front Wheel Walker Gait Distance 100 Other Goals up/down 13 steps using bilateral rails min A Days to Meet Goals 10 Frequency of Treatment Frequency Of Treatment Once a Day Treatment Plan Physical Therapy Treatment Plan Bed Mobility Training,Transfer Training,Gait Training, Therapeutic Exercise,Balance Retraining,Post Op Education, Discharge Planning,Hot or Cold Pack,Neuromuscular Re-ed, Coordination Retraining,Manual Therapy Other Recommendations and Next Treatment transfers, ambulation Focus Recommendations To Nursing Amount of Assist Needed 2 Person Assist Discharge Recommendations PT Discharge Recommendations Home with 24/7 Assist,SNF Rehab Other Discharge Recommendations depending on progress: SNF vs home with 24/7 and HHPT Transportation Needs at Discharge Private Vehicle,Wheelchair/ Cabulance
[2020-01-05] MEDS: SODIUM CHLORIDE 0.9% FLUSH 10 ML IV ×2 (11:38→20:43)
[2020-01-05] MEDS: NYSTATIN POWDER 15GM 1 APPLIC TOP ×3 (11:39→20:44)
--- NOTE | 2020-01-05 14:39 | PT.IPTN ---
Physical Therapy Treatment Note M2 PT-IP Current Condition Start: 01/04/20 18:21 Freq: NEEDED Status: Active Protocol: Document 01/04/20 15:39 AB (Rec: 01/04/20 18:43 AB [id number]) Physical Therapy Current Condition Current Condition Evaluation Date 01/04/20 Treatment Diagnosis RLE sciatica; weakness Onset Date 01/03/2020 Precautions Lumbar Precautions Log Roll,No Twisting,Limit Bending,Lifting Restriction of 10 lbs M3 PT-IP Subjective Start: 01/04/20 18:21 Freq: NEEDED Status: Active Protocol: Document 01/05/20 10:30 AB (Rec: 01/05/20 12:33 AB [id number]) Subjective Physical Therapy Visit Type Type Treatment Note Visit Start Time 10:30 Visit Stop Time 11:10 Total Visit Minutes 40 Notes Pt's tx plan is once a day but seen twice today. pt worked with PT already earlier today but seen again for further assessment and caregiver training to determine safe d/c plan. pt will continue with once a day tx plan Number of COSTUME DRAPER Visits 0 Physical Therapy Visit Comments Patient Comments caregiver present for training Therapy Pain Assessment Pain When Pain Assessed At Rest Pain Present Pain Present Pain Reported Location Lower Back Intensity 6 Scale Used increases with mobility Pain Management Techniques Apply Cold,Distraction,Re- positioning,Timing of Activity with Medications M4 PT-IP Mobility and Gait Start: 01/04/20 18:21 Freq: NEEDED Status: Active Protocol: Document 01/05/20 10:30 AB (Rec: 01/05/20 12:33 AB [id number]) PT-Bed Mobility Assessment Rolling Level of Assist Maximal Assistance,1 Person Assistance Supine to Sit Supine to Sit Maximum Assistance,2 Person Assistance,Bedrails Sit to Supine Sit to Supine Maximum Assistance,1 Person Assistance,2 Person Assistance ,Bedrails PT-Transfer Assessment Sit to and From Stand Sit to and from Stand Moderate Assistance,1 Person Assistance,Use of Upper Extremities Equipment Transfer Assistive Device Gait Belt,Front Wheeled Walker Orthotic/Prosthetic Devices or Brace: No Transfers Transfer Destination Wheelchair Transfer Technique ambulated using FWW Transfer Ability Level of Assist Moderate Assistance,1 Person Assistance,Use of Upper Extremities Comments Mobility Comments pt is hesistant to participate in PT and requires increase encouragement and motivation to participate. pt also directs her own care. caregiver present for training and has been assisting pt at home even prior to hospitalization and is familiar on how to assist pt. assisted pt with bed mobility max A x 2 with PT and caregiver assisting pt. caregiver able to put safety belt on and assist pt with ambulation to the w/c using FWW. completed up/down 3 steps using bilateral rails min to mod A and cues. caregiver was able to assist pt. pt stated that son will be at home and can assist her if needed. pt encouraged to ambulate farther and completed ~ 30 ft going back to the room but requires increase motivation to go farther. Caregiver also encouraging pt but pt stated that she can stay in bed the whole day if she wants to and refused further ambulation. c /o increase R low back and leg pain. pt ambulated from w/c to bed ~ 15 ft using FWW with caregiver assisting. pt completed sit to supine 2 person max A and cues. positioned pt in bed. call light and table placed within reach. ice pack provided. Gait Assessment Gait Gait Assistance Required: Moderate Assistance,1 Person Assist Distance (Feet) 30 Able to Maintain Weight Bearing Status Yes During Gait Assistive Devices Assistive Device Gait Belt,Front Wheeled Walker Orthotic/Prosthetic Devices or Brace: No Gait Deviations General Gait Pattern Antalgic,Decreased Stride Length,Decreased Feet Clearance,Step-to Gait Factors Limiting Gait Function Factors Limiting Gait Function Decreased Activity Tolerance, Decreased Strength,Limited Range of Motion,Pain,Poor Balance,Poor Safety Awareness Comments Gait Comments pls refer to mobility section for details Stair Climbing Assessment Evaluation Level of Assist On Stairs Moderate Assistance,1 Person Assistance Devices Stair Climbing Assistive Devices Left Railing,Right Railing Technique/Endurance Stair Climbing Direction Ascend and Descend Stair Climbing Technique Step to Step Number of Steps Climbed 3 Stair Climbing Set # Repetitions (reps) 1 Comments Stair Climbing Comments completed just one set of 3 steps and pt refused to repeat . M5 PT-IP Objective Assessments Start: 01/04/20 18:21 Freq: NEEDED Status: Active Protocol: Document 01/04/20 15:39 AB (Rec: 01/04/20 18:43 AB [id number]) Orientation Orientation/Cognition Level of Alertness Alert Orientation Name,Age,Place,Situation Language Function Ability No Deficits Noted Safety Awareness Decreased Safety Awareness Gross Range of Motion Lower Extremity ROM Assessment Within Functional Limits Strength Lower Extremity Strength Assessment Bilaterally Impaired Hip 3+/5 Knee 3+/5 M6 PT-IP Treatment Start: 01/04/20 18:21 Freq: NEEDED Status: Active Protocol: Document 01/05/20 10:30 AB (Rec: 01/05/20 12:33 AB [id number]) Physical Therapy Treatment Education Education Provided Safety Other Treatments Other Treatment Performed informed pt and caregiver that pt will need a FWW and a w/c for mobility. pt unable to tolerate much activity and will require a w/c for long distance mobility. caser up aware. M7 PT-IP Assessment and Plan Start: 01/04/20 18:21 Freq: NEEDED Status: Active Protocol: Document 01/05/20 10:30 AB (Rec: 01/05/20 12:33 AB [id number]) PT Summary Assessment and Plan Potential Rehabilitation Potential Fair Summary Impairments Pain,ROM,Strength,Balance, Coordination,Sensation,Tone, Cognition,Bed Mobility, Transfers,Gait,Activity Tolerance Progress Towards Goals Slow Progress due to Pain,Slow Progress due to Activity Tolerance Assessment Summary pt requiring max A x 2 with bed mobility and mod A for transfers. pt plans to go home with a caregiver and her son to assist her. pt is inconsistent with her level of assistance and also requires increase encouragement to participate. pt will require SNF rehab to improve strength and mobility but hospitalization status, may not be able to go to SNF. If pt goes home, will need 24/7 assist and homehealth PT. informed pt and caregiver that she will need a FWW and a w/c . Goals Bed Mobility Goal Minimal Assistance Transfer Goal Minimal Assistance,Front Wheeled Walker Gait Goal Minimal Assistance,Front Wheel Walker Gait Distance 100 Other Goals up/down 13 steps using bilateral rails min A Days to Meet Goals 10 Frequency of Treatment Frequency Of Treatment Once a Day Treatment Plan Physical Therapy Treatment Plan Bed Mobility Training,Transfer Training,Gait Training, Therapeutic Exercise,Balance Retraining,Post Op Education, Discharge Planning,Hot or Cold Pack,Neuromuscular Re-ed, Coordination Retraining,Manual Therapy Other Recommendations and Next Treatment transfers, ambulation Focus Recommendations To Nursing Amount of Assist Needed 2 Person Assist Discharge Recommendations PT Discharge Recommendations Home with 24/7 Assist,SNF Rehab Other Discharge Recommendations depending on progress: SNF vs home with 24/7 and HHPT Transportation Needs at Discharge Private Vehicle,Wheelchair/ Cabulance
--- NOTE | 2020-01-05 14:57 | CM.DPC ---
DCP Cont: Faxed [facility] orders, face to face, H&P, CHRISTINA Garcia. Sirisha Monae RN/Glove Sewer
--- NOTE | 2020-01-05 14:58 | PC.NURSE ---
Pt has declined her anticoagulation meds today as she is due for a cortisone injection this coming Friday at [facility]. She reports that she has been instructed by them to stop anticoagulation medication.
--- NOTE | 2020-01-05 16:03 | PC.NURSE ---
patient is resting at the moment
--- NOTE | 2020-01-05 16:21 | CM.DANOTE ---
DIETARY SERVER Assessment: Received referral from Dr. Pitts re: consult for mental health. DIETARY SERVER met with patient and took over case from CM/RN for d/c planning needs. Met with patient this AM explained DIETARY SERVER role. Patient currently sitting in recliner with agreeable to meet with DIETARY SERVER. Patient with very flat affect at time of visit. Patient confirms that she resides with her son/Vignesh in [place]. Patient admits to current lack of motivation/mobilizing due to pain in back and leg. Patient active at Orth[facility] and has appointment scheduled on Friday for cortisone injection. Patient admits to h/o depression although she denies taking any psychiatric medications. Patient reports that her last experience with psychotropics led to her feeling suicidal. Patient concerned that is she starts taking medication for her depression again she will feel worse. Patient denies suicidal or homicidal ideation. Patient plans to return home with caregiver/Jossie and son/Vignesh when medically stable which Dr. Pitts predicts to be tomorrow 01-06-20. DIETARY SERVER spoke with son while interviewing patient in the room. He reports that patient has been suffering from depression which has cause her to be less or not active. Son reports that PCP/Dr. Null was going to start patient on psychotropic mediation. Patient agreeable to try during conversation with son on the phone. Spoke with Dr. Pitts and she is agreeable to start new medication today (see MAR for specific mediation). \ In addition to the above patient also agreeable to HH for RN/PT/OT/PROPERTY TECHNICIAN. Patient has had [facility] in the past and would like to use them again. Placed call to Ananda with [facility] and obtained order and F2F signed and faxed. DIETARY SERVER requested start of care on Friday01-07-20. Patient clearly presents with depression at time of DIETARY SERVER visit. Patient denies SI/HI and agreeable to start psychotropic to treat her depression. Son, caregiver, and [facility] manager primary care Marcus of above with patient's permission. No additional DIETARY SERVER needs identified. P: D/C planned for 01-06-[address] Pitts. CM team to confirm HH with [facility] prior to d/c. Caregiver in agreement to pick patient up tomorrow afternoon. Dr. Pitts updated. Khadijah Pack MSW Discharge Planning/Care Management CM Discharge Assessment Start: 01/04/20 15:58 Freq: Status: Active Protocol: Document 01/04/20 15:59 ITV (Rec: 01/04/20 16:00 ITV [id number]) Discharge Planning Assessment Advance Directives? No Prior Living Arrangements Apartment/Condo Household Members children Document 01/04/20 15:59 ITV (Rec: 01/04/20 16:00 ITV [id number]) Discharge Planning Assessment Advance Directives? No Prior Living Arrangements Apartment/Condo Independent with ADL's No Is patient alert and oriented? No: not at time of assessment Whiteboard Updated in Patient Room with Yes name and ext. # of Melt Room Operator Review Status In Process Document 01/05/20 16:21 KJS (Rec: 01/05/20 16:21 KJS [id number]) Discharge Planning Assessment Assigned Melt Room Operator CHRISTINA Murray Advance Directives? No Prior Living Arrangements Apartment/Condo Household Members children Independent with ADL's No Is patient alert and oriented? No: not at time of assessment Whiteboard Updated in Patient Room with Yes name and ext. # of Melt Room Operator Review Status In Process
[2020-01-05 17:41] LABS: Hemoglobin A1C% w Est Avg Glu 5.7 % (4.0-6.0)
[2020-01-05] MEDS: BISACODYL 10 MG SUPP PR (17:44)
[2020-01-05] MEDS: MAGNESIUM OXIDE 400 MG TABLET PO (17:47)
[2020-01-05] MEDS: ESCITALOPRAM 10 MG TABLET PO (17:47)
[2020-01-05] MEDS: CYCLOBENZAPRINE 10 MG TABLET PO (19:29)
[2020-01-05] MEDS: CEFTRIAXONE 1 GM/50 ML FROZ.PIGGY IV (19:29)
[2020-01-05] MEDS: ATORVASTATIN 20 MG TABLET PO (20:40)
[2020-01-05] MEDS: DOCUSATE 100 MG CAPSULE PO (20:40)
--- NOTE | 2020-01-05 23:31 | PC.NURSE ---
Rosy shift note: Patient refused Mineral Oil Enema, states she will not allow it. Agreed to have Dulcolax DE Suppository, x 2 moderate amount soft yellow BM's. X 2 incontinent voids post F/C removal. Post void residual on scan 11 ml. States feels her bladder empty. Call light within reach, call appropriately for staff assistance. Likes to keep the room door open, states like to people watch.
[2020-01-06 04:00] VITALS: BP 126/74; PULSE 77; RESP 18; TEMP 36.8; O2SAT 97
[2020-01-06] MEDS: ACETAMINOPHEN 325 MG TABLET 975 MG PO ×2 (04:05→13:33)
[2020-01-06] MEDS: HEPARIN 5,000 UNIT/ML VIAL 5000 UNIT SUBCUT (06:03)
[2020-01-06 06:10] LABS: Alanine Aminotransferase 14 IU/L (<35); Albumin 3.3 g/dL (3.5-5.0); Albumin Globulin Ratio 1.2 (1.0-2.8); Alkaline Phosphatase 88 U/L (38-126); Aspartate Aminotransferase 14 IU/L (14-36); Bilirubin Total 0.2 mg/dL (0.2-1.3); Blood Urea Nitrogen 44 mg/dL (7-17); Calcium 8.8 mg/dL (8.4-10.2); Carbon Dioxide 23 mmol/L (22-32); Chloride 106 mmol/L (98-107); Estimated Glomerular Filt Rate 23.6 mL/min (>60); Globulin 2.8 g/dL (1.7-4.1); Glucose 152 mg/dL (80-110); HEMOLYSIS < 15 (0-50); Magnesium 1.5 mg/dL (1.6-2.3); Potassium 3.9 mmol/L (3.4-5.1); Sodium 138 mmol/L (137-145); Total Protein 6.1 g/dL (6.3-8.2)
--- NOTE | 2020-01-06 06:45 | PC.NURSE ---
Patient had not voided on overnight cashier, bladder scanned her for estimated amount of 472ml. SWITCH ADJUSTER notified and ordered straight cath.
[2020-01-06 08:35] VITALS: BP 164/115; PULSE 78; RESP 20; TEMP 36.4; O2SAT 96
[2020-01-06] MEDS: ESCITALOPRAM 10 MG TABLET PO (09:20)
[2020-01-06] MEDS: polyethylene glycoL 3350 17 GM POWD.PACK PO (09:20)
[2020-01-06] MEDS: NYSTATIN POWDER 15GM 1 APPLIC TOP (09:20)
[2020-01-06] MEDS: DOCUSATE 100 MG CAPSULE PO (09:20)
[2020-01-06] MEDS: calcitrioL 0.25 MCG CAPSULE 0.5 MCG PO (09:22)
--- NOTE | 2020-01-06 10:26 | OT.IP.TRT ---
Occupational Therapy Treatment Note M2 OT-IP Current Condition Start: 01/05/20 12:09 Freq: Status: Active Protocol: Document 01/05/20 12:09 CCC (Rec: 01/05/20 12:43 [facility] [id number]) Occupational Therapy Current Condition Current Condition Evaluation Date 01/05/20 Treatment Diagnosis RLE sciatica, weakness Diagnosis Onset Date 01/05/20 Weight Bearing Status Weight Bearing Status Weight Bear as Tolerated M3 OT- IP Subjective and Pain Start: 01/05/20 12:09 Freq: Status: Active Protocol: Document 01/06/20 10:26 PJM (Rec: 01/06/20 13:23 PJM [id number]) OT- Subjective Occupational Therapy Visit Type Type Treatment Note Visit Start Time 09:21 Visit Stop Time 10:26 Total Visit Minutes 65 Occupational Therapy Visit Comments Patient Comments I can't hold my arms up to wash my hair. My caregiver does everything for me in the shower. Patient/Caregiver Goals to go home today; have less back pain, I am having another cortisone shot soon. OT Pain Assessment Pain When Pain Assessed After Treatment Pain Present Pain Present Pain Reported FLACC Pain Scale Face Occasional grimace/frown Legs Normal position; relaxed Activity Quiet, moves easily Cry No cry (awake or asleep) Consolability Reassurable with touch FLACC Total 2 M4 OT- IP ADL's Start: 01/05/20 12:09 Freq: Status: Active Protocol: Document 01/06/20 10:26 PJM (Rec: 01/06/20 13:23 PJM [id number]) OT ADL-Grooming General Evaluation Grooming Ability Independent Areas Needing Assistance Retrieving/Set-up of Grooming Items Comments OT Grooming Comments pt declined to go to sink this session. Pt indep brushing hair in chair after shower. OT ADL-Oral Care Comments Oral Care Comments pt declines to do denture care this session OT ADL-Dressing General Eval Upper Body Dressing Ability Standby Assistance Lower Body Dressing Ability Maximum Assistance Assistive Devices Dressing Assistive Devices Dehydration Plant Operator Comments OT Dressing Comments I have a home designer and I don't like it. My caregiver does all this for me. Pt self limits participation in lower body dressing with adaptive equipment to improve body mechanics and decrease low back strain/pain. Pt states she rarely wears socks; usually barefoot at home. Provided explanation of benefits of use of adaptive equipment and pt states she will think about it. OT ADL-Toileting Comments OT Toileting Comments Provided education re: body mechanics; pt declines use of toilet paper aid OT ADL-Bathing Bathing Type Bathing Type Shower General Evaluation Bathing Ability Moderate Assistance Areas Needing Assistance Retrieving/Setting Up Items, Wash/Dry Upper Body,Wash/Dry Back,Wash/Dry Perineal Area Devices Bathing Equipment Long Handled Sponge or E[place], Hand Held Shower Sprayer, Shower Chair with Arms,Grab Bars Comments OT Bathing Comments Pt able to increase participation in seated shower with much encouragement. Provided long bath sponge which pt able to use to wash lower legs and feet. Pt needs assist to wash/dry in abdominal skin folds with redness noted. RN aware. Total assist with hair washing as pt unable to hold B arms up for prolonged periods due to weakness. M5 OT- IP IADL's Start: 01/05/20 12:09 Freq: Status: Active Protocol: Document 01/06/20 10:26 PJ (Rec: 01/06/20 13:23 [facility] [id number]) OT-Instrumental Activities of Daily Living Deficits IADL Deficits Identified Deficits Home Safety Awareness Awareness of Need for Assistance at Home Good Awareness Home Safety Comments Pt has caregivers 5 days /week from 9-2 pm or 9 to 4pm who assist her with lower body dressing, shower, laundry, cleaning, cooking. Son does grocery shopping Medication Management Medication Management Caregiver Provides Supervision Money Management Money Management Caregiver Provides Supervision Meal Preparation Meal Preparation Caregiver Provides Assist Project/Production Manager Imaging Project/Production Manager Imaging Caregiver Provides Assist Driving Driving Caregiver Provides Assist M6 OT- IP Functional Cognition Start: 01/05/20 12:09 Freq: Status: Active Protocol: Document 01/06/20 10:26 PJM (Rec: 01/06/20 13:23 [facility] [id number]) Cognitive Factors Limiting Selfcare Function Cognitive Ability Level of Alertness Alert Patient Orientation Name,Age,Birthday,Month,Date, Year,Day of Week,Place, Situation Attention Span Ability Capable of Focused Attention, Capable of Sustained Attention Ability to Follow Commands Able to Follow One Step Commands Problem Solving Ability Needs Assist to Identify Solutions Cognitive Comments Cognitive Assessment Comments Pt alert and initiating conversation today with brighter affect, but resistant to trying new methods to increase independence in tasks such lower body dressing and showering. Decreased insight into how very sedentary lifestyle is contributing to poor activity tolerance and deconditioning. Pt feels very limited by her back and leg pain at present. M7 OT- IP Mobility and Balance Start: 01/05/20 12:09 Freq: Status: Active Protocol: Document 01/06/20 10:26 PJM (Rec: 01/06/20 13:23 PJ [id number]) OT-Transfer Assessment Sit to and From Stand Sit to and from Stand Minimal Assistance Transfers Transfer Ability Contact Guard Assistance Technique Transfer Destination Chair,Shower Stall,Toilet Transfer Technique Stand Step Pivot Devices Transfer Assistive Devices Gait Belt,Front Wheeled Walker Comments Mobility Comments Pt needs verbal cues re: hand placement and body mechanics for sit to stand and occasional min assist to arise from low surfaces. With grab bars in bathroom, pt CGA to close SBA for sit to stand. OT- Gait Assessment Gait Gait Assistance Required: Contact Guard Assist Distance (Feet) 20 Assistive Devices Assistive Device Gait Belt,Front Wheeled Walker Comments Gait Ability Comments Pt needs max verbal cues and min assist to keep FWW close. OT- Balance Assessment Sitting Balance and Reactions Static Sitting Balance Ability Good Dynamic Sitting Balance Ability Good Standing Balance and Reactions Static Standing Balance Ability Good Dynamic Standing Balance Ability Fair Comments Other Balance Tests/Deviations/Treatment with FWW or grab bar for : standing balance during lower body dressing and showering M8 OT- IP Objective Assessments Start: 01/05/20 12:09 Freq: Status: Active Protocol: Document 01/06/20 10:26 PJM (Rec: 01/06/20 13:23 PJ [id number]) OT Gross Range of Motion Upper Extremity Range of Motion ROM Impairments B shoulder scaption limited to 80 degrees by weakness, ? inconsistent effort OT Strength Comments Strength Comments B shoulder scaption 3/5, WFL distally OT- Coordination Assessment Comments Coordination Comments BUE WFL OT-Muscle Tone Assessment Muscle Tone WNL Yes M9 OT- IP Assessment and Plan Start: 01/05/20 12:09 Freq: Status: Active Protocol: Document 01/06/20 10:26 PJM (Rec: 01/06/20 13:23 PJ [id number]) OT Summary Assessment and Plan Summary Progress Towards Goals Safe For Discharge Assessment Summary Pt presents with brighter affect today but activity tolerance remains limited by low back and leg pain. Pt needs much encouragement to try adaptive equipment for lower body dressing and showering to increase ease and independence. She prefers caregiver to assist her. Pt would benefit from trial of HH OT at home to see if she can be be more independent with basic self care and train caregiver not to do too much for her. Pt plans to discharge home later today with with assist from caregivers 5x week and son who is unemployed at present. Frequency of Treatment Frequency Of Treatment Discharge Discharge Recommendations OT Discharge Recommendations Home with 09/06 Assist,Home Health Transportation Needs at Discharge Private Vehicle
--- NOTE | 2020-01-06 11:11 | PC.NURSE ---
Pt has had an incontinent void into her brief this morning at approx. 0745 with moderate to large amount of urine soaking the brief. She has been bladder scanned and has less than 45mls remaining as PVR.
--- NOTE | 2020-01-06 11:30 | PT.IPTN ---
Physical Therapy Treatment Note M2 PT-IP Current Condition Start: 01/04/20 18:21 Freq: NEEDED Status: Active Protocol: Document 01/04/20 15:39 AB (Rec: 01/04/20 18:43 AB [id number]) Physical Therapy Current Condition Current Condition Evaluation Date 01/04/20 Treatment Diagnosis RLE sciatica; weakness Onset Date 01/03/2020 Precautions Lumbar Precautions Log Roll,No Twisting,Limit Bending,Lifting Restriction of 10 lbs M3 PT-IP Subjective Start: 01/04/20 18:21 Freq: NEEDED Status: Active Protocol: Document 01/06/20 11:30 AB (Rec: 01/06/20 12:07 AB [id number]) Subjective Physical Therapy Visit Type Type Treatment Note Visit Start Time 11:30 Visit Stop Time 11:52 Total Visit Minutes 22 Number of LEAD CYTOGENETIC TECHNOLOGIST Visits 0 Physical Therapy Visit Comments Patient Comments pt hesistant to particpate and c/o RLE pain; refused to do stair climbing; agreed to ambulate in room but stated that she is not going to walk far. Therapy Pain Assessment Pain When Pain Assessed At Rest Location Right Lower Leg Scale Used pain scale not stated M4 PT-IP Mobility and Gait Start: 01/04/20 18:21 Freq: NEEDED Status: Active Protocol: Document 01/06/20 11:30 AB (Rec: 01/06/20 12:07 AB [id number]) PT-Transfer Assessment Sit to and From Stand Sit to and from Stand Maximum Assistance,1 Person Assistance,Use of Upper Extremities Equipment Transfer Assistive Device Gait Belt,Front Wheeled Walker Comments Mobility Comments pt sitting on chair. dispensed FWW for home use and adjusted. pt refused to walk far and do stairs. completed sit to stand max A and max cues and required 3 attempts to go to upright position. pt ambulated in room ~ 12 ft max A and cues. pt refused further ambulation. positioned pt back in bed. call light and table placed within reach. Gait Assessment Gait Gait Assistance Required: Minimum Assistance,1 Person Assist Distance (Feet) 12 Able to Maintain Weight Bearing Status Yes During Gait Assistive Devices Assistive Device Gait Belt,Front Wheeled Walker Orthotic/Prosthetic Devices or Brace: No Gait Deviations General Gait Pattern Antalgic,Decreased Stride Length,Decreased Feet Clearance,Flexed Trunk,Step-to Gait Factors Limiting Gait Function Factors Limiting Gait Function Decreased Activity Tolerance, Decreased Strength,Difficulty Following Directions,Pain,Poor Balance,Poor Safety Awareness M5 PT-IP Objective Assessments Start: 01/04/20 18:21 Freq: NEEDED Status: Active Protocol: Document 01/04/20 15:39 AB (Rec: 01/04/20 18:43 AB [id number]) Orientation Orientation/Cognition Level of Alertness Alert Orientation Name,Age,Place,Situation Language Function Ability No Deficits Noted Safety Awareness Decreased Safety Awareness Gross Range of Motion Lower Extremity ROM Assessment Within Functional Limits Strength Lower Extremity Strength Assessment Bilaterally Impaired Hip 3+/5 Knee 3+/5 M6 PT-IP Treatment Start: 01/04/20 18:21 Freq: NEEDED Status: Active Protocol: Document 01/06/20 11:30 AB (Rec: 01/06/20 12:07 AB [id number]) Physical Therapy Treatment Education Education Provided Safety M7 PT-IP Assessment and Plan Start: 01/04/20 18:21 Freq: NEEDED Status: Active Protocol: Document 01/06/20 11:30 AB (Rec: 01/06/20 12:07 AB [id number]) PT Summary Assessment and Plan Potential Rehabilitation Potential Fair Summary Impairments Pain,ROM,Strength,Balance, Coordination,Sensation,Tone, Cognition,Bed Mobility, Transfers,Gait,Activity Tolerance Progress Towards Goals Slow Progress due to Pain Assessment Summary pt requiring max A with sit to stand and ambulation using FWW. requires increase motivation to participate. pt has a caregiver at home and her son to assist her. pt at this time will require 24/7 assist and recommending SNF rehab but due to insurance issues, have to go home and will require homehealth services. caregiver training was completed yesterday Goals Bed Mobility Goal Minimal Assistance Transfer Goal Minimal Assistance,Front Wheeled Walker Gait Goal Minimal Assistance,Front Wheel Walker Gait Distance 100 Other Goals up/down 13 steps using bilateral rails min A Days to Meet Goals 10 Frequency of Treatment Frequency Of Treatment Once a Day Treatment Plan Physical Therapy Treatment Plan Bed Mobility Training,Transfer Training,Gait Training, Therapeutic Exercise,Balance Retraining,Post Op Education, Discharge Planning,Hot or Cold Pack,Neuromuscular Re-ed, Coordination Retraining,Manual Therapy Other Recommendations and Next Treatment transfers, ambulation Focus Recommendations To Nursing Amount of Assist Needed 2 Person Assist Discharge Recommendations PT Discharge Recommendations Home with 24/7 Assist,SNF Rehab Other Discharge Recommendations depending on progress: SNF vs home with 24/7 and HHPT Transportation Needs at Discharge Private Vehicle,Wheelchair/ Cabulance
[2020-01-06 12:00] VITALS: BP 162/81; PULSE 68; RESP 18; TEMP 36.4; O2SAT 97
--- NOTE | 2020-01-06 12:44 | PM.DS.1 ---
History of Present Illness History of Present Illness Date Patient Seen: 01/06/20 Time Patient Seen: 11:30 Chief complaint: Weakness Narrative: As per LUISA Kirby: HPI is obtained via direct interview with the patient and review of records. Patient is an unreliable historian. Ms Prince is a 64-year-old female with PMHx of HTN, CAD (h/o HI, 2v-CABG 2011), CHF, DM 2T (w/ complications of polyneuropathy), COPD / asthma, CKD III, Fe deficiency anemia, chronic pain (OA, sciatica), psoriasis, and depression. Patient herself is not entirely sure why she presented to the hospital. Patient has multiple complaints. ED triage records note concern for a rash, she had an outpatient appointment; however, for unknown reasons, decided to come to the ED instead. Over the past week patient has had loose bowel movements / diarrhea. Notes episodes occurring sporadically throughout the week. Patient denies abdominal pain, nausea, and vomiting. Denies presence of melena and hematochezia. She reports to have not eaten for the past 3-4 days out of fear for loose stools. In addition, patient reports change in pattern of micturition. Specifically notes presence of dysuria and decreased urine output. She denies urinary frequency and hematuria. Patient reports baseline bowel and bladder incontinence. Patient has severe intertrigo between breast folds and in the vaginal/inguinal area, progressively worsening over the past 1 month. Patient denies history of recurrent UTIs. Patient reports chronic back pain and chronic right lower extremity pain with sciatica. Reports being immobile at baseline. Patient reports spending most of her day in bed. She is unable to get out of bed on her own and requires assistance of her caregiver for her son. She is unable to walk or engage in ADLs independently and requires assistance. Reports being in this state of debility for 6-7 months. She reports having progressive decline in her mobility over the past 8 years. Patient denies fever and chills. Denies recent illness. Denies URI symptoms. Denies chest pain, shortness of breath, dizziness, lightheadedness, abdominal pain, nausea, or vomiting. Patient is an everyday smoker. Also endorses vaping all day long. Discharge Providers Provider Date of admission: 01/03/20 21:13 Discharge Date: 01/06/20 Primary care physician: Bar Null MD Consults: 01/03/20 23:40 Consult to Physical Therapy Evaluate & Treat Comment: generalized weakness, difficulty ambulating Physician Instructions: Evaluate and Treat 01/05/20 07:37 Consult to BLENDER - [employer] History Teacher Routine Comment: BLENDER Consult: Community Health Res Need Behavioral Health Assess 01/05/20 08:22 Consult to Occupational Therapy Evaluate & Treat Comment: Physician Instructions: Evaluate and treat 01/05/20 14:53 Consult to Home Health Routine Comment: Reason For Exam: Home Health RN, P.T, O.T, bath aide 01/06/20 11:35 Consult to Home Health Routine Comment: Reason For Exam: FWW for home use Discharge provider: Gael Whitney DO Summary Hospital Course Discharge Diagnosis: Please see discharge summary by problem list noted below. Hospital Course: Elizabeth Prince is a 64-year-old female with past medical history significant for coronary artery disease status post HI and CABG x2 vessels, hypertension, hyperlipidemia, CHF, diabetes mellitus type 2, non-insulin using, with complication of polyneuropathy and chronic kidney disease stage 3 COPD/asthma, iron deficiency anemia, chronic pain (OA, sciatica), psoriasis, and severe untreated depression who presented to the ED with progressive worsening weakness and urinary incontinence. This may be secondary to urinary tract infection, however she was also noted to have severe untreated depression and was started on an SSRI. She was seen by physical therapy, and will be discharged home with home health today. 1. Acute urinary tract infection, present on admission. Stable. -Urinalysis appeared mildly infected and urine culture growing pansensitive E coli. Patient was discharged on 5 additional days of Macrobid. She was given ceftriaxone IV while in mid inpatient. 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 -Blood culture x2 has no growth to date. -Discontinued Lane catheter. Patient was voiding without difficulty upon discharge. 2. Probable acute kidney injury on chronic kidney disease stage 4, present on admission. Active. -Likely secondary to UTI and urinary retention with incontinence. -Baseline creatinine appears to be between 1.8-2.0. Initial creatinine 2.20 and trended up to 2.30. Now improved to 2.1 upon discharge. -can resume home losartan which was held as an inpatient. 3. Acute on chronic constipation with small and large bowel ileus, present on admission. Active. -Patient reports recent loose watery stool likely brand representative of encoparesis. -CT abdomen and pelvis with contrast demonstrated possible small and large bowel ileus. She did have multiple further bowel movement and reported no nausea or vomiting and her abdomen was soft. She is stable for discharge home, discharged on colace and senna nightly. Further encouraged ambulation. -advise that if patient develops abdominal pain, nausea, vomiting, or does not continue to have bowel movement she should seek medical attention. 4. Candidal Intertrigo, refractory to topical therapy, acute, present on admission, active -Patient has intertrigo of inguinal, intergluteal, and submammary regions due to chronically lying prone without position changes. -Received fluconazole 150 mg x 1. -Intertrigo care: -Wash area with mild antibacterial soap daily. -Dry / compress with absorbent material or drying agents such as anhydrous aluminum acetate. -Apply ketoconazole cream daily for 14 days. 5. Severe untreated major depressive disorder with recent grief, chronic, present on admission. Active. -Patient is severely depressed and lost her sister recently and reports she has not addressed grief. -Patient is amenable to SSRI and have started escitalopram 10 mg daily. Continue to monitor patient closely for suicidal and/or homicidal ideations. May consider titrating up to 20 mg daily for full efficacy per PCP. -Highly recommended referral to outpatient cognitive behavioral therapy per PCP. She did report suicidal ideations on a previous SSRI, she was not clear on symptoms of magali in the past, but denies any manic symptoms recently. It was also possible that her previous suicidal ideations were in a flare of depression which occurred while taking her previous medication. 6. Acute on chronic generalized weakness with debility, present on admission. Active. -Acute portion in the setting of acute UTI. Chronic progressive debility and deconditioning highly driven by untreated depression as above. -Continue home therapies. Patient was discharged with home health. 7. Diabetes mellitus type 2, non-insulin using, chronic, present on admission. Stable. -Hemoglobin A1c 5.7% indicative excellent glycemic control and in the range of prediabetes. -Patient no longer taking metformin due to advanced CKD. Discontinued glipizide as patient is at high risk of hypoglycemia, and recommend that she not continue this as an outpatient. 8. Coronary artery disease, chronic, present on admission. Stable. -Continue atorvastatin 20 mg daily at bedtime. Held clopidogrel for scheduled epidural steroid injection. 9. Chronic back pain with right-sided sciatica, present on admission. Stable. -MRI lumbar spine without contrast on 02/26/2019 demonstrated slight interval progression of right-sided subarticular narrowing as above at L4-L5, otherwise grossly unchanged examination since 02/25/2018. -Patient has scheduled epidural steroid injection on 01/10/[address] Ferrer. Held clopidogrel for upcoming procedure. 10. Hypertension, chronic, present on admission. Stable. -Blood pressure remains normotensive with occasional spike in SBP to 150. -Held losartan due to probable acute kidney injury, this can be resumed upon discharge. Dispo: Patient was discharged home with home health. Exam Vital Signs (past 8 hours): - 01/06/20 08:35 Temperature 97.6 F Pulse Rate 78 Respiratory Rate 20 Blood Pressure 164/115 H Pulse Oximetry 96 Oxygen Delivery Method Room Air Oxygen Flow Rate 0 Narrative Exam Narrative: General: Older female sitting in bedside chair and in no acute distress, appears older than stated age in chronically ill, well-developed, well-nourished, severely depressed with flat affect and slightly withdrawn but otherwise appropriately interactive. HEENT: Normocephalic, atraumatic. External ears without defect. Pupils equal, round, and reactive to light. Anicteric sclerae, moist conjunctivae, and no lid lag. Neck: Supple with full range of motion. No lymphadenopathy or thyromegaly. Cardiovascular: Regular rate and rhythm without murmurs, rubs, or gallops appreciated. Pulmonary: Clear to auscultation bilaterally without crackles, wheezes, or rhonchi. Normal respiratory effort with no use of accessory muscles. Abdomen: Soft, bowel sounds present, nontender, nondistended. No hepatosplenomegaly or masses appreciated. Extremities: No clubbing, cyanosis, or edema. Skin: Normal temperature, turgor, and texture; no rash, ulcers, or subcutaneous nodules appreciated. Neurological: Cranial nerves grossly intact. Generalized weakness with no focal neurological deficits. Psychiatric: Severely depressed mood with emotional lability and flat affect. Alert and oriented to person, place, and time. Objective Labs Result Diagrams: 01/05/20 08:05 01/06/20 05:35 Labs: Laboratory Results - last 24 hr 01/05/20 01/06/20 08:05 05:35 Sodium 138 Potassium 3.9 Chloride 106 Carbon Dioxide 23 BUN 44 H Creatinine 2.10 H Estimated GFR 23.6 L BUN/Creatinine Ratio 21.0 Glucose 152 H Hemoglobin A1c 5.7 Calcium 8.8 Magnesium 1.5 L Total Bilirubin 0.2 AST 14 ALT 14 Alkaline Phosphatase 88 Total Protein 6.1 L Albumin 3.3 L Globulin 2.8 Albumin/Globulin Ratio 1.2 Discharge Plan Discharge Plan Patient Disposition: Home Health Service Discharge comment: You were admitted to the hospital after a fall and weakness. You were started on a medication for depression and you should follow up with your primary care provider to discuss continuing this medication sustain engineer. You had not had a bowel movement in a week, and this resolved today. Please continue to take stool softeners and if you develop nausea or vomiting do not hesitate to return to the emergency room. You were also found to have a urinary tract infection and will complete your antibiotics at home. Discharge orders & Medications Prescriptions: New cyclobenzaprine 10 mg Tablet 10 mg PO Q8HR PRN (Reason: Spasms) 7 Days Qty: 15 RF: 0 docusate sodium [DOK] 100 mg Capsule 100 mg PO BID 15 Days Qty: 30 RF: 0 escitalopram oxalate 10 mg tablet 10 mg PO DAILY 30 Days Qty: 30 RF: 0 nitrofurantoin macrocrystal 100 mg capsule 100 mg PO BID 5 Days Qty: 10 RF: 0 senna 8.6 mg capsule 8.6 mg PO BEDTIME 30 Days Qty: 30 RF: 0 Continued cyclobenzaprine 10 mg tablet 10 mg PO TID PRN (Reason: muscle spasm) Qty: 90 RF: 5 nystatin 100,000 unit/gram ointment 1 applictn TOP TID Qty: 30 RF: 1 (DME) blood-glucose meter Kit See Rx Instructions .ROUTE .MEDSUPPLY Qty: 1 RF: 0 (DME) Blood Glucose Test Strip See Rx Instructions .ROUTE .MEDSUPPLY Qty: 100 RF: 3 (DME) lancets [Fingerstix Lancets] Misc See Rx Instructions .ROUTE .MEDSUPPLY Qty: 100 RF: 3 nystatin 100,000 unit/gram powder 1 applictn TOP TID Qty: 30 RF: 1 losartan 50 mg tablet 50 mg PO DAILY Qty: 90 RF: 1 clopidogrel 75 mg tablet 75 mg PO DAILY Qty: 90 RF: 1 atorvastatin 20 mg tablet 20 mg PO BEDTIME Qty: 90 RF: 1 albuterol sulfate [Ventolin HFA] 90 mcg/actuation HFA aerosol inhaler 2 puff INHALATION Q6H PRN (Reason: shortness of breath or wheezing) Qty: 18 RF: 11 calcitriol 0.5 mcg capsule 0.5 mcg PO DAILY RF: 0 acetaminophen [Acetaminophen Extra Strength] 500 mg Tablet 1,000 mg PO QID RF: 0 Discontinued glipizide 5 mg tablet 5 mg PO BID Qty: 180 RF: 1 Follow up/Referrals: Bar Null MD [Primary Care Provider] - (Please call to schedule your appointment with Dr. Null You will also be followed by [facility].) Discharge Health Status Health Concerns: Depression UTI Chronic back pain Diet/Activity/Treatments Diet: Diet as Tolerated Activity: As tolerated Visit Report/Discharge Packet Instructions: DI for Urinary Tract Infection (UTI), DI for Sciatica, How to Prevent Falls, DI for Muscle Weakness Discharge Data Primary Care Provider: Bar Null Attending Provider: Janie Werner Admit Date/Time: 01/03/20 21:13 Discharges patient from system. Discharge Date/Time: 01/06/20 17:00 Quality VTE Deep Vein Thrombosis/Pulmonary Embolism Present on Admission: No
--- NOTE | 2020-01-06 15:59 | CM.DPNOTE ---
DC Note DC order in place, DC home today w/ family and heather [place]ASE. Spoke w/Ananda this AM to confirm pt's insurance was [employer] [facility]; he expected pt's DC today and needed no further documentation from this LEGAL PRACTICE MANAGER JW
--- NOTE | 2020-01-06 17:41 | PC.NURSE ---
Rosy shift note: Patient discharged home as ordered with Jossie (caregiver). Discharge instructions given to both, discussed importance of F/U with PMD Bar Null, Fall risk precautions and new medications/side effects. Both verbalized understanding. Home health arranged. Answered all questions. Patient discharge home via private vehicle.
== END 2020-01-06 17:00 | disposition home health service (06) ==
LOC: ED 20:46 → AC 21:16
PROVIDERS: Emergency Medicine; Internal Medicine; Admitting Provider Nurse Practitioner Gerontology; Emergency Provider Emergency Medicine; PCP Student in an Organized Health Care Education/Training Program; Visit Provider Nurse Practitioner Gerontology
DX: N30.00 Acute cystitis without hematuria (principal); B96.20 Unspecified Escherichia coli [E. coli] as the cause of diseases classified elsewhere; R53.1 Weakness; F17.210 Nicotine dependence, cigarettes, uncomplicated; R33.9 Retention of urine, unspecified; R32 Unspecified urinary incontinence; B37.2 Candidiasis of skin and nail; F32.9 Major depressive disorder, single episode, unspecified; R53.81 Other malaise; I25.10 Atherosclerotic heart disease of native coronary artery without angina pectoris; Z95.1 Presence of aortocoronary bypass graft; M54.41 Lumbago with sciatica, right side; E11.42 Type 2 diabetes mellitus with diabetic polyneuropathy; J44.9 Chronic obstructive pulmonary disease, unspecified; I50.9 Heart failure, unspecified; D50.9 Iron deficiency anemia, unspecified; N18.3 Chronic kidney disease, stage 3 (moderate); I12.9 Hypertensive chronic kidney disease with stage 1 through stage 4 chronic kidney disease, or unspecified chronic kidney disease
CPT/HCPCS: 36415; 71045; 72100; 72131; 72170; 74176; 80048; 80053; 81001; 82962; 83036; 83605; 83690; 83735; 84145; 85025; 85610; 85651; 85730; 86140; 87040; 87077; 87086; 87186; 93005; 94640; 96361; 96365; 96366; 96375; 96376; 97116; 97162; 97165; 97530; 97535; 99284; G0378; J1644; J2270; J2405

== ENCOUNTER 2020-01-08 13:17 | Observation (INO) | payer MEDICARE, MEDICAID, SELFPAY ==
[2020-01-05 23:27] VITALS: BMI 39.9
[2020-01-08] VITALS (7 sets, daily range): BP systolic 128–174; BP diastolic 65–89; PULSE 72–90; RESP 16–20; TEMP 36.4–37; O2SAT 93–98; BMI 37.1
--- NOTE | 2020-01-08 | DI.MRI.S_ITS ---
PROCEDURE: MR LUMBAR SPINE W CON INDICATIONS: LOSS OF BOWEL CONTROL TECHNIQUE: Precontrast sagittal STIR imaging, axial T1 imaging, and axial T2 imaging was obtained. Post contrast imaging of the spine utilizing T1 fat-suppressed imaging in the sagittal and axial planes was also performed. COMPARISON: [facility], MR, MR LUMBAR SPINE WO CON, 01/08/2020, 14:20. [facility], CT, CT LUMBAR SPINE WO CON, 01/03/2020, 18:25. [facility], MR, MR LUMBAR SPINE WO CON, 02/26/2019, 16:00. FINDINGS: Image quality: Diagnostic. Comparison is made to the earlier examination that was terminated early by the patient on 01/08/20. The patient was medicated prior to this examination to be able to tolerate the study. Bones and intervertebral discs: Again, there is no new disc protrusion or extrusion identified involving the lumbar spine. The degree of central canal or neural foraminal narrowing has not significantly progressed since the most recent MRI. No marrow edema is evident on the STIR images. The vertebral body heights are well-maintained. No suspicious enhancement of the bones is identified. Central canal: No abnormal epidural enhancement is appreciated. No epidural fluid collections are identified. Multifocal areas of central canal stenosis have not significantly changed since 02/26/19. Paraspinous soft tissues: No paravertebral masses or abnormal enhancement. Mild subcutaneous edema is identified along the dorsal aspect of the lower lumbar region. No drainable or loculated fluid collections are appreciated. IMPRESSION: 1. No acute fractures of the lumbar spine. 2. No suspicious osseous lesions are suspicious enhancement of the lumbar spine or adjacent soft tissues. 3. No new disc protrusions or extrusions. The degree of central canal or neural foraminal stenosis has not progressed since 02/26/19. Dictated by: Timbo Bull M.D. on 01/08/2020 at 15:16 Approved by: Timbo Bull M.D. on 01/08/2020 at 15:21
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
[2020-01-08 14:41] LABS: Add Manual Diff / Slide Review NO; Basophils Absolute Auto 0 /uL (0-100); Basophils Percent Auto 0.8 % (0-2); Eosinophils Absolute Auto 300 /uL (0-450); Hematocrit 36.7 % (36-46); Hemoglobin 12.1 g/dL (12.0-16.0); Lymphocytes Absolute Auto 1200 /uL (1100-4500); Lymphocytes Percent Auto 23.6 % (25-40); Mean Corpuscular HGB Conc 32.9 % (30-36); Mean Corpuscular Hemoglobin 28.4 PG (26-34); Mean Corpuscular Volume 86.1 fL (80-100); Monocytes Absolute Auto 400 /uL (0-900); Monocytes Percent Auto 7.1 % (3-14); Neutrophils Absolute Auto 3200 /uL (1500-7000); Neutrophils Percent Auto 63.5 % (50-75); Platelet Count 264 X10^3/uL (150-400); Red Blood Cell Count 4.27 X10^6/uL (4.0-5.2); Red Cell Distribution Width 16.3 % (11.6-14.8)
[2020-01-08 14:51] LABS: BUN Creatinine Ratio 20.6 (6-22); Blood Urea Nitrogen 37 mg/dL (7-17); Calcium 9.2 mg/dL (8.4-10.2); Carbon Dioxide 24 mmol/L (22-32); Chloride 107 mmol/L (98-107); Creatine Kinase 44 U/L (30-135); Estimated Glomerular Filt Rate 28.2 mL/min (>60); Glucose 123 mg/dL (80-110); HEMOLYSIS < 15 (0-50); Potassium 4.1 mmol/L (3.4-5.1); Sodium 141 mmol/L (137-145)
[2020-01-08 15:03] LABS: Troponin I 0.035 ng/mL (0.01-0.034)
[2020-01-08 15:22] LABS: Lactate (Lactic Acid) 0.8 mmol/L (0.7-2.1)
[2020-01-08] MEDS: LORazepam 2 MG/ML INJ 1 MG IV (15:29)
--- NOTE | 2020-01-08 16:07 | PC.NURSE ---
1500 Per [employer] fitness program coordinator, they were able to obtain two pictures of MRI before patient had a panic/claustrophobic response and refused to continue the test. Dr. Zamora aware. patient back in room.
--- NOTE | 2020-01-08 16:08 | PC.NURSE ---
procedure tech reports patient was able to complete test fully after ativan.
[2020-01-08 20:18] LABS: Magnesium 1.7 mg/dL (1.6-2.3)
[2020-01-08] MEDS: LACTATED RINGERS 1,000 ML 100 ML IV (20:30)
[2020-01-08] MEDS: ACETAMINOPHEN 325 MG TABLET 650 MG PO (21:44)
--- NOTE | 2020-01-08 21:56 | PC.NURSE ---
2145- Specimen sent for GI panel and C-diff per order. Patient C/O muscle spasm to the right lower extremity. Greg VICK notified orders rec. MRSA swab sent per protocol.
[2020-01-08] MEDS: CYCLOBENZAPRINE 10 MG TABLET PO (22:14)
[2020-01-08 23:06] LABS: Adenovirus F 40/41 Not Detected (Not Detect); Astrovirus Not Detected (Not Detect); Campylobacter Not Detected (Not Detect); Clostridium difficile toxin AB Not Detected (Not Detect); Cryptosporidium Not Detected (Not Detect); Cyclospora cayetanensis Not Detected (Not Detect); Entamoeba histolytica Not Detected (Not Detect); Enteroaggregative E.coli Not Detected (Not Detect); Enteropathogenic E.coli Not Detected (Not Detect); Enterotoxigenic E.coli It/st Not Detected (Not Detect); Giardia lamblia Not Detected (Not Detect); Norovirus GI/GII Not Detected (Not Detect); Plesiomonsa shigelloides Not Detected (Not Detect); Rotavirus A Not Detected (Not Detect); Salmonella Not Detected (Not Detect); Sapovirus Not Detected (Not Detect); Shiga-like toxin-prod E.coli Not Detected (Not Detect); Shigella/Enteroinvasive E.coli Not Detected (Not Detect); Vibrio Not Detected (Not Detect); Vibrio cholerae Not Detected (Not Detect); Yersinia enterocolitica Not Detected (Not Detect)
[2020-01-09] VITALS (12 sets, daily range): BP systolic 132–166; BP diastolic 65–94; PULSE 72–78; RESP 14–20; TEMP 36.1–36.8; O2SAT 92–99
--- NOTE | 2020-01-09 01:56 | PM.HP.1 ---
History of Present Illness History of Present Illness Date Patient Seen: 01/08/20 Time Patient Seen: 19:50 Chief complaint: Recent Dx with UTI,today diff standing/loss bowel Narrative: Mrs. Elizabeth Prince is a 64-year-old female with past medical history significant for coronary artery disease status post NV and CABG x2 vessels, hypertension, hyperlipidemia, CHF, diabetes mellitus type 2, non-insulin using, with complication of polyneuropathy and chronic kidney disease stage 3 COPD/asthma, iron deficiency anemia, chronic pain (OA, sciatica), psoriasis, and severe untreated depression who presented to the ED with progressive weakness and incontinence of bowel and bladder. The patient was discharged on 01/06/2020 following a 3 days hospitalization for evaluation similar presentation with weakness, diarrhea and incontinence. The patient reports waking this morning that she was wet in front and brown in back and has loss control of bowel and bladder. She reports the stool has a foul smell and is loose and watery. The patient has been treated for UTI and discharged on nitrofurantoin. She reports worsening generalized weakness, pain and now has inability to lift her right leg and states that she is unable to walk. On discharge the patient refused intermediate facility and was able to walk 13 steps. She lives in an upstairs apartment and has nursing assistance at home and her son helps or on weekends. She denies complaints of fevers or chills and has no headaches or dizziness. She reports no sore throat or nasal congestion. She denies shortness of breath cough or wheezing and has no chest pain or palpitations. She denies complaints of abdominal pain or cramping, nausea or vomiting. She reports diarrhea stools multiple times daily and urinary incontinence as above. She denies blood in the urine or the stool. Upon arrival to the ER the patient has a temperature of 98.6?, heart rate of 90, blood pressure 128/86, respirations 16 saturating 99% on room air. Lumbar MRI is obtained related to also control of bowel and bladder which finds no significant change from the previous imaging obtained on 02/26/2019. On laboratory analysis the patient has a white count of 5.0, hemoglobin of 12.1 hematocrit of 36.7 and platelets of 264. Her electrolytes are all within normal limits and she has a BUN of 37 and a creatinine of 1.8 with baseline of 1.8-2.0. Nonfasting glucose is 123 she has lactic acid of 0.8. Troponin is minimally elevated at 0.035 and has a total CK of 44. A urinalysis was not obtained in previously had pansensitive E coli greater than 100,000 colony-forming units. The patient is admitted to the hospital for failure to thrive, recurrent falls and worsening right leg weakness. Patient History Medical History Anemia (Chronic 1996) Arthritis (Chronic Unknown) Asthma (Chronic 1979) Cardiac arrhythmia (Chronic 1991) Cataracts, bilateral (Chronic 1996) Chickenpox (Resolved) Chickenpox (Resolved) CKD (chronic kidney disease) (Chronic 1979) COPD (chronic obstructive pulmonary disease) (Chronic 1979) Coronary artery disease (Chronic) Coronary artery disease (Chronic 1991) Depression (Chronic 1979) Diabetes (Chronic 1988) Diabetic polyneuropathy (Chronic) Essential hypertension (Chronic) Gastroesophageal reflux disease (Chronic) GERD (gastroesophageal reflux disease) (Chronic 1978) Hyperlipemia (Chronic Unknown) Hyperlipidemia (Chronic) Hypertension (Chronic 1991) Iron deficiency (Resolved) Lower back pain (Chronic 12/2015) Lower extremity edema (Chronic) Measles (Resolved) Myocardial infarction (Resolved 1991) Neuropathy (Chronic Unknown) Osteoarthritis (Chronic) Psoriasis (Chronic 2014) Skin cancer (Resolved 2007) Stage 3 chronic kidney disease (Chronic) Type 2 diabetes mellitus (Resolved) Surgical History Hx of heart surgery (Resolved 1991) Hx of surgical procedure (Resolved 03/2018) Status post cholecystectomy (1984) Status post coronary artery bypass graft (06/2012) Status post hysterectomy (1985) Status post tubal ligation Family & Social History Family History Father No problems noted. Mother Cancer Hypertension Brother Cancer Brother Diabetes mellitus Brother Stroke Sister Diabetes mellitus Heart disease Mental health problem Grandmother Cancer Social History: household members children Prior Living Arrangements Apartment/Condo lives independently Yes caregiver/support person Yes Safety & Behavioral: Feels Safe in Current Yes Environment Been Physically Hurt or No Threatened By a Person Suicidal Ideation Description None Suicide Plan Description No Plan Tobacco & Substance use: Tobacco type cigarettes,smokeless tobacco Smoking Status Current every day smoker alcohol intake former alcohol intake frequency other Substance Use Type does not use Comment: Advanced directives: The patient does not have advanced directives however states her desire to be FULL CODE. She designates her son, Vignesh, as a surrogate decision maker. Meds Home Medications and Allergies Home Medications Medication Instructions Recorded Confirmed Type cyclobenzaprine 10 mg tablet 10 mg PO TID PRN #90 tab 07/21/19 01/03/20 Rx albuterol sulfate 90 mcg/actuation 2 puff INHALATION Q6H PRN #18 gram 10/27/19 01/03/20 Rx aerosol inhaler atorvastatin 20 mg tablet 20 mg PO BEDTIME #90 tab 10/27/19 01/03/20 Rx clopidogrel 75 mg tablet 75 mg PO DAILY #90 tab 10/27/19 01/03/20 Rx nystatin 100,000 unit/gram topical 1 applictn TOP TID #30 gram 11/16/19 01/03/20 Rx ointment blood sugar diagnostic #100 each 11/30/19 01/03/20 Rx blood-glucose meter #1 each 11/30/19 01/03/20 Rx lancets #100 each 11/30/19 01/03/20 Rx nystatin 100,000 unit/gram topical 1 applictn TOP TID #30 gram 11/30/19 01/03/20 Rx powder losartan 50 mg tablet 50 mg PO DAILY #90 tab 12/27/19 01/03/20 Rx calcitriol 0.5 mcg PO DAILY 01/03/20 01/03/20 History acetaminophen [Acetaminophen Extra 1,000 mg PO QID 01/04/20 01/04/20 History Strength] cyclobenzaprine 10 mg PO Q8HR PRN 7 Days #15 tab 01/06/20 Rx docusate sodium [DOK] 100 mg PO BID 15 Days #30 cap 01/06/20 Rx escitalopram oxalate 10 mg PO DAILY 30 Days #30 tab 01/06/20 Rx nitrofurantoin macrocrystal 100 mg PO BID 5 Days #10 cap 01/06/20 Rx sennosides [senna] 8.6 mg PO BEDTIME 30 Days #30 cap 01/06/20 Rx Allergies Allergy/AdvReac Type Severity Reaction Status Date / Time lisinopril Allergy Severe ANGIOEDEMA Verified 01/08/20 13:25 aspirin Allergy Mild HIVES Verified 01/08/20 13:25 simvastatin Allergy Mild RASH Verified 01/08/20 13:25 Review of Systems Review of Systems Narrative: All systems reviewed and found unremarkable under discussed in the HPI above. Exam Vital Signs (past 8 hours): - 01/08/20 18:15 01/08/20 19:52 01/08/20 20:54 Temperature 97.6 F 97.5 F L Pulse Rate 72 79 Respiratory Rate 20 18 Blood Pressure 136/73 148/65 H Pulse Oximetry 95 95 93 01/08/20 23:52 01/09/20 00:36 Temperature 97.2 F L Pulse Rate 77 Respiratory Rate 16 Blood Pressure 166/82 H Pulse Oximetry 94 95 Oxygen Delivery Method Room Air Oxygen Flow Rate 0 Narrative Exam Narrative: GENERAL APPEARANCE: well developed, obese female, BMI 37.2, in no acute distress. HEENT: Normocephalic, PERRLA, conjunctiva clear, sclera is anicteric, EOMs intact without nystagmus, no rhinorrhea, mucous membranes are moist and pink without lesions or exudate. NECK/THYROID: neck supple, no JVD, no carotid bruit, no thyromegaly, trachea midline. LYMPH NODES: no cervical or supraclavicular lymphadenopathy. SKIN: [place], warm and dry, no visible lesions, rashes, ulcerations or petechiae. HEART: regular rate and rhythm, S1-S2, no murmur, no rubs or gallops, brisk capillary refill, 2+ dorsalis pedis pulses, trace edema LUNGS: clear but diminished bilaterally, no coarseness crackles or wheezing, no cough present CHEST: Symmetrical movement, no accessory muscle use, good tidal volume. ABDOMEN: Soft, obese, nontender to palpation, no guarding or peritoneal signs, no organomegaly, no flank or suprapubic tenderness, active bowel tones. EXTREMITIES: Decreased movement bilateral lower extremities, right 2/5, left 3/5l, decrease dorsi/plantar flexion strength on the right normal left, no deformities or joint effusions. Back pain with manual straight leg raise. NEUROLOGIC: AAO x4, no focal neurologic deficits, cranial nerves II-XII grossly intact, sensation intact to light touch, hearing grossly normal to speech. PSYCH: Good eye contact, appropriate with stable behavior, denies suicidal ideation or thoughts of self-harm. Objective Labs Result Diagrams: 01/08/20 14:30 01/08/20 14:30 Labs: Laboratory Results - last 24 hr 01/08/20 01/08/20 01/08/20 14:30 14:30 14:30 WBC 5.0 RBC 4.27 Hgb 12.1 Hct 36.7 MCV 86.1 MCH 28.4 MCHC 32.9 RDW 16.3 H Plt Count 264 Neut % (Auto) 63.5 Lymph % (Auto) 23.6 L [place] % (Auto) 7.1 Eos % (Auto) 5.0 H Baso % (Auto) 0.8 Neut # (Auto) 3200 Lymph # (Auto) 1200 [place] # (Auto) 400 Eos # (Auto) 300 Baso # (Auto) 0 Sodium 141 Potassium 4.1 Chloride 107 Carbon Dioxide 24 BUN 37 H Creatinine 1.80 H Estimated GFR 28.2 L BUN/Creatinine Ratio 20.6 Glucose 123 H Lactate Calcium 9.2 Magnesium Total Creatine Kinase 44 CK-MB (CK-2) TNP CK-MB (CK-2) Rel Index TNP Troponin I 0.035 H Nasal Screen MRSA (PCR) Stl C. cayetanensis PCR Stool Rotavirus (PCR) Stool Adenovirus (PCR) Stool Astrovirus (PCR) Stool Cryptosporidium PCR Stl E.coli Shiga Tox PCR St Sh/Enteroin Ecoli PCR Stool E coli O157 PCR Stl Enterotoxigenic E PCR Stool EPEC (PCR) Stl E. histolytica PCR Stool Giardia Lamblia PCR Stool Sapovirus (PCR) Stl P. shigelloides PCR St Y.enterocolitica PCR Stool Vibrio (PCR) Stl Vibrio cholerae PCR Stl Enteroaggr Ecoli PCR Stl Norovirus GI/GII PCR Campylobacter (PCR) C. difficile Tox (PCR) Salmonella (PCR) 01/08/20 01/08/20 01/08/20 15:06 15:06 21:30 WBC RBC Hgb Hct MCV MCH MCHC RDW Plt Count Neut % (Auto) Lymph % (Auto) [place] % (Auto) Eos % (Auto) Baso % (Auto) Neut # (Auto) Lymph # (Auto) [place] # (Auto) Eos # (Auto) Baso # (Auto) Sodium Potassium Chloride Carbon Dioxide BUN Creatinine Estimated GFR BUN/Creatinine Ratio Glucose Lactate 0.8 Calcium Magnesium 1.7 Total Creatine Kinase CK-MB (CK-2) CK-MB (CK-2) Rel Index Troponin I Nasal Screen MRSA (PCR) Stl C. cayetanensis PCR Stool Rotavirus (PCR) Stool Adenovirus (PCR) Stool Astrovirus (PCR) Stool Cryptosporidium PCR Stl E.coli Shiga Tox PCR St Sh/Enteroin Ecoli PCR Stool E coli O157 PCR Stl Enterotoxigenic E PCR Stool EPEC (PCR) Stl E. histolytica PCR Stool Giardia Lamblia PCR Stool Sapovirus (PCR) Stl P. shigelloides PCR St Y.enterocolitica PCR Stool Vibrio (PCR) Stl Vibrio cholerae PCR Stl Enteroaggr Ecoli PCR Stl Norovirus GI/GII PCR Campylobacter (PCR) C. difficile Tox (PCR) Cancelled Salmonella (PCR) 01/08/20 01/08/20 21:30 21:30 WBC RBC Hgb Hct MCV MCH MCHC RDW Plt Count Neut % (Auto) Lymph % (Auto) [place] % (Auto) Eos % (Auto) Baso % (Auto) Neut # (Auto) Lymph # (Auto) [place] # (Auto) Eos # (Auto) Baso # (Auto) Sodium Potassium Chloride Carbon Dioxide BUN Creatinine Estimated GFR BUN/Creatinine Ratio Glucose Lactate Calcium Magnesium Total Creatine Kinase CK-MB (CK-2) CK-MB (CK-2) Rel Index Troponin I Nasal Screen MRSA (PCR) Negative for mrsa Stl C. cayetanensis PCR Not detected Stool Rotavirus (PCR) Not detected Stool Adenovirus (PCR) Not detected Stool Astrovirus (PCR) Not detected Stool Cryptosporidium PCR Not detected Stl E.coli Shiga Tox PCR Not detected St Sh/Enteroin Ecoli PCR Not detected Stool E coli O157 PCR Not detected Stl Enterotoxigenic E PCR Not detected Stool EPEC (PCR) Not detected Stl E. histolytica PCR Not detected Stool Giardia Lamblia PCR Not detected Stool Sapovirus (PCR) Not detected Stl P. shigelloides PCR Not detected St Y.enterocolitica PCR Not detected Stool Vibrio (PCR) Not detected Stl Vibrio cholerae PCR Not detected Stl Enteroaggr Ecoli PCR Not detected Stl Norovirus GI/GII PCR Not detected Campylobacter (PCR) Not detected C. difficile Tox (PCR) Not detected Salmonella (PCR) Not detected Assessment & Plan Assessment & Plan narrative: 1. Progressive weakness resulting in multiple falls, present on admission, active Patient has fallen multiple times complains of left chest wall bruising on palpation, no other reported identified trauma. Patient reports inability to lift right leg with radicular pain and weakness of left leg. Patient also incontinent of bowel and bladder, obtained in the ER finds no significant changes from exam on 02/26/2019. Exam 02/26/2019 finding: L4-L5: Broad-based posterior disc bulge mild facet arthropathy. Mild central canal narrowing and severe effacement of both lateral recesses although right slightly greater than left. Associated compression of the descending L5 nerve roots. This is slightly progressed on the right since the prior study. No change on the left. Moderate to severe bilateral foraminal narrowing with mild compression of the exiting nerve roots Patient has scheduled epidural steroid injection on 01/10/[address] Ferrer, requested orthopedic surgery consult related to worsening condition. 2. Chronic kidney disease stage 4, present on admission. Active. Has been treated for pansensitive E coli UTI with nitrofurantoin which will be discontinued in setting impaired creatinine clearance. Baseline creatinine appears to be between 1.8-2.0. Will obtain urinalysis for effectiveness of treatment. 3. Intractable diarrhea, present on admission. Active. Patient continues to experience loose watery stool likely quality audit representative of encoparesis. CT abdomen and pelvis with contrast obtained during hospitalization last week demonstrated possible small and large bowel ileus. She did have multiple further bowel movement and reported no nausea or vomiting and her abdomen was soft. The patient returns due to inability toilet related to progressive weakness. Will obtain abdominal series. 4. [place] Intertrigo, acute, present on admission, active Patient has intertrigo of inguinal, intergluteal, and submammary regions. Patient has received fluconazole in using nystatin powder with improvement in symptoms. Ordered Ketoconazole cream to rash daily. 5. Major depressive disorder with recent grief, chronic, present on admission. Active. On prior admission depressions been a factor in the patient's progressive disability and deconditioning. The patient has been started on escitalopram 10 mg daily but has not yet been on the medication long enough to evaluate response. Patient but recommended to outpatient cognitive behavioral therapy by her PCP Patient denies thoughts of suicide or self-harm. Patient is appropriately interactive with stable behavior. Will continue escitalopram 10 mg daily. 6. Diabetes mellitus type 2, non-insulin using, chronic, present on admission. Stable. Hemoglobin A1c 5.7% in the range of prediabetes. Glipizide has been discontinued -Patient no longer taking metformin due to advanced CKD. Discontinued glipizide as patient is at high risk of hypoglycemia, and recommend that she not continue this as an outpatient. 7. Coronary artery disease, chronic, present on admission. Stable. Continue home regimen of atorvastatin 20 mg daily at bedtime, clopidogrel has been held since discharge for scheduled epidural steroid injection plan for 01/10/2020. 8. Hypertension, chronic, present on admission. Stable. Patient had previously been on losartan which was discontinued related to renal function. Patient's blood pressure on arrival is 128/86. Will continue to track and trend blood pressures and evaluate need for antihypertensive therapy. VTE prophylaxis: SCDs, Lovenox Diet: Heart healthy, medium carbohydrate. IV fluid: Lactated Ringer's 100 cc/hour. The patient is admitted to the hospital due to progressive debility and inability to provide self-care and recurrent falls and risk of complications an injury. Spoke with the patient regarding benefits of discharge to rehab facility. The patient is admitted as observation with expected length of stay to be less than 2 midnights. Scores GCS Lilly coma scale eye opening: Spontaneous Lilly coma scale verbal response: Orientated Lilly coma scale motor response: Obey commands Lilly coma scale total score: 15
--- NOTE | 2020-01-09 02:26 | PC.NURSE ---
Talk to night hospitalist Maximilian regarding pts. stool culture result being negative and take pt. off of enteric precaution which he agreed.
[2020-01-09 05:12] LABS: Add Manual Diff / Slide Review NO; Basophils Absolute Auto 0 /uL (0-100); Basophils Percent Auto 0.6 % (0-2); Eosinophils Absolute Auto 300 /uL (0-450); Eosinophils Percent Auto 4.9 % (2-4); Hematocrit 35.9 % (36-46); Hemoglobin 11.9 g/dL (12.0-16.0); Lymphocytes Absolute Auto 1400 /uL (1100-4500); Lymphocytes Percent Auto 22.8 % (25-40); Mean Corpuscular HGB Conc 33.2 % (30-36); Mean Corpuscular Hemoglobin 28.6 PG (26-34); Mean Corpuscular Volume 86.1 fL (80-100); Monocytes Absolute Auto 600 /uL (0-900); Monocytes Percent Auto 10.3 % (3-14); Neutrophils Absolute Auto 3700 /uL (1500-7000); Neutrophils Percent Auto 61.4 % (50-75); Platelet Count 248 X10^3/uL (150-400); Red Blood Cell Count 4.17 X10^6/uL (4.0-5.2); Red Cell Distribution Width 16.4 % (11.6-14.8)
[2020-01-09 05:14] LABS: Blood Urea Nitrogen 34 mg/dL (7-17); Calcium 9.1 mg/dL (8.4-10.2); Carbon Dioxide 23 mmol/L (22-32); Chloride 108 mmol/L (98-107); Estimated Glomerular Filt Rate 30.1 mL/min (>60); Glucose 84 mg/dL (80-110); HEMOLYSIS < 15 (0-50); Potassium 3.8 mmol/L (3.4-5.1); Sodium 139 mmol/L (137-145)
[2020-01-09 06:28] LABS: Bacteria Urine None Seen
[2020-01-09 06:29] LABS: Bilirubin Urine UA NEGATIVE (NEGATIVE); Glucose Urine UA TRACE g/dL (Negative); Ketones Urine UA NEGATIVE (NEGATIVE); Leukocyte Esterase Urine UA 1+ (NEGATIVE); Nitrite Urine UA NEGATIVE (Negative); Occult Blood Urine UA 3+ (Negative); Protein Urine UA 3+ (Negative); Urobilinogen Urine UA 0.2 E.U./dL (0.2)
[2020-01-09 06:31] LABS: Appearance Urine UA SL CLOUDY; Color Urine UA RED; pH Urine UA 6.5 (4.5-8.0)
[2020-01-09 06:32] LABS: RBC Urine 30-100/HPF (0-5/HPF); Transitional Epi Cells Urine 0-1/HPF (0-5/HPF); WBC Urine 0-1/HPF (0-5/HPF)
[2020-01-09 06:37] LABS: Culture Indicated Urine Specimen Cultured
--- NOTE | 2020-01-09 08:00 | DI.RAD.S_ITS ---
PROCEDURE: XR ABDOMEN MIN 2V INDICATIONS: Intractable diarrhea TECHNIQUE: 2 views of the abdomen were acquired. COMPARISON: None. FINDINGS: Surgical changes and devices: Clips within the right upper quadrant are suggestive of a previous cholecystectomy. There also are postoperative changes of the lower midline chest, suggesting median sternotomy. Bowel: A few borderline prominent air-filled small bowel loops are seen within the left upper quadrant. Air and stool is seen within the colon. No definite pneumoperitoneum is appreciated. Soft tissues: No masses; visualized solid organ contours appear normal in size. No suspicious abdominal calcifications. Bones: No suspicious bony abnormalities. IMPRESSION: Probable small bowel ileus. Followup imaging would be of value to exclude the possibility of a developing small bowel obstruction. Dictated by: Timbo Bull M.D. on 01/09/2020 at 9:32 Approved by: Timbo Bull M.D. on 01/09/2020 at 9:33
[2020-01-09] MEDS: ACETAMINOPHEN 325 MG TABLET 650 MG PO ×2 (08:15→17:24)
[2020-01-09] MEDS: CYCLOBENZAPRINE 10 MG TABLET PO ×2 (08:15→17:24)
--- NOTE | 2020-01-09 08:42 | PC.NURSE ---
Addendum entered by Heike Gabriel R.N. 01/09/20 14:07: 1410- Pt Remains resistive to any activity with PT. Reminded Pt that she rec'd additional medication for pain, and attempts to mobilize will affect her ability to get placement. Pt is willing to attempt work with PT on my own terms PT updated. This RN will reinforce activity with PT staff. Original Note: Am shift Pt wakes A/0 x4, increased c/o muscle spasms and pain to BLEs, xray of ABD ordered, Pt had APAP and Flexiril prior to films, but increased difficulty r/t positioning. Unable to sit upright d/t pain. Per Pt, there is really not much she can tolerate other than laying in the bed with assistance to roll. Lungs are dim, RA Spo2 96%, VSS, Tele in place NSR. Pt's main concern at present is pain control. BA active and call light in reach.
[2020-01-09] MEDS: calcitrioL 0.25 MCG CAPSULE 0.5 MCG PO (11:54)
[2020-01-09] MEDS: LOSARTAN 50 MG TABLET PO (11:55)
[2020-01-09] MEDS: KETOCONAZOLE 2% CREAM 15 GM 1 APPLIC TOP (11:55)
[2020-01-09] MEDS: ENOXAPARIN 30 MG/0.3 ML SYRINGE SUBCUT (11:59)
[2020-01-09] MEDS: ESCITALOPRAM 10 MG TABLET PO (12:15)
--- NOTE | 2020-01-09 12:26 | P.HP_ITS ---
History of Present Illness History of Present Illness Date Patient Seen: 01/09/20 Time Patient Seen: 12:01 Chief complaint: Recent Dx with UTI,today diff standing/loss bowel Narrative: Antonia is a 64-year-old female with a history of spinal stenosis. She has chronic problems with her low back but noted progressive weakness especially into the right leg and new and progressive difficulty with her bowel and bladder. She has been having some inner intermittent problems with diarrhea which has significantly worsened and she has some intermittent bowel incontine nce. She also has intermittent urological incontinence. She does note that she does have some residual control of both her bowel and bladder. She lives at home with a caregiver but is having difficulty mobilizing and has significant weakness especially into the right leg. She was scheduled for an epidural cortisone injection for her spinal stenosis next week but noted worsening over the weekend. Patient History Medical History Anemia (Chronic 1996) Arthritis (Chronic Unknown) Asthma (Chronic 1979) Cardiac arrhythmia (Chronic 1991) Cataracts, bilateral (Chronic 1996) Chickenpox (Resolved) Chickenpox (Resolved) CKD (chronic kidney disease) (Chronic 1979) COPD (chronic obstructive pulmonary disease) (Chronic 1979) Coronary artery disease (Chronic) Coronary artery disease (Chronic 1991) Depression (Chronic 1979) Diabetes (Chronic 1988) Diabetic polyneuropathy (Chronic) Essential hypertension (Chronic) Gastroesophageal reflux disease (Chronic) GERD (gastroesophageal reflux disease) (Chronic 1978) Hyperlipemia (Chronic Unknown) Hyperlipidemia (Chronic) Hypertension (Chronic 1991) Iron deficiency (Resolved) Lower back pain (Chronic 12/2015) Lower extremity edema (Chronic) Measles (Resolved) Myocardial infarction (Resolved 1991) Neuropathy (Chronic Unknown) Osteoarthritis (Chronic) Psoriasis (Chronic 2014) Skin cancer (Resolved 2007) Stage 3 chronic kidney disease (Chronic) Type 2 diabetes mellitus (Resolved) Surgical History Hx of heart surgery (Resolved 1991) Hx of surgical procedure (Resolved 03/2018) Status post cholecystectomy (1984) Status post coronary artery bypass graft (06/2012) Status post hysterectomy (1985) Status post tubal ligation Family & Social History Family History Father No problems noted. Mother Cancer Hypertension Brother Cancer Brother Diabetes mellitus Brother Stroke Sister Diabetes mellitus Heart disease Mental health problem Grandmother Cancer Social History: household members children Prior Living Arrangements Apartment/Condo lives independently Yes caregiver/support person Yes Safety & Behavioral: Feels Safe in Current Yes Environment Been Physically Hurt or No Threatened By a Person Suicidal Ideation Description None Suicide Plan Description No Plan Tobacco & Substance use: Tobacco type cigarettes,smokeless tobacco Smoking Status Current every day smoker alcohol intake former alcohol intake frequency other Substance Use Type does not use Meds Home Medications and Allergies Home Medications Medication Instructions Recorded Confirmed Type albuterol sulfate 90 mcg/actuation 2 puff INHALATION Q6H PRN #18 gram 10/27/19 01/09/20 Rx aerosol inhaler atorvastatin 20 mg tablet 20 mg PO BEDTIME #90 tab 10/27/19 01/09/20 Rx nystatin 100,000 unit/gram topical 1 applictn TOP TID #30 gram 11/16/19 01/09/20 Rx ointment blood sugar diagnostic #100 each 11/30/19 01/03/20 Rx blood-glucose meter #1 each 11/30/19 01/03/20 Rx lancets #100 each 11/30/19 01/03/20 Rx losartan 50 mg tablet 50 mg PO DAILY #90 tab 12/27/19 01/09/20 Rx calcitriol 0.5 mcg PO DAILY 01/03/20 01/09/20 History acetaminophen [Acetaminophen Extra 1,000 mg PO QID 01/04/20 01/09/20 History Strength] cyclobenzaprine 10 mg PO Q8HR PRN 7 Days #15 tab 01/06/20 01/09/20 Rx docusate sodium [DOK] 100 mg PO BID 15 Days #30 cap 01/06/20 01/09/20 Rx escitalopram oxalate 10 mg PO DAILY 30 Days #30 tab 01/06/20 01/09/20 Rx nitrofurantoin macrocrystal 100 mg PO BID 5 Days #10 cap 01/06/20 01/09/20 Rx sennosides [senna] 8.6 mg PO BEDTIME 30 Days #30 cap 01/06/20 01/09/20 Rx Allergies Allergy/AdvReac Type Severity Reaction Status Date / Time lisinopril Allergy Severe ANGIOEDEMA Verified 01/08/20 13:25 aspirin Allergy Mild HIVES Verified 01/08/20 13:25 simvastatin Allergy Mild RASH Verified 01/08/20 13:25 Review of Systems Review of Systems Narrative: Review of systems as noted above, denies recent fever chills has not had any recent cardiac or pulmonary complaints does note some chronic issues with her bowels including diarrhea and intermittent incontinence, also notes chronic urological symptoms with intermittent incontinence. She has not developed complete incontinence. Exam Vital Signs (past 8 hours): - 01/09/20 04:32 01/09/20 07:00 01/09/20 08:00 Temperature 97.3 F L 97.0 F L Pulse Rate 78 76 Respiratory Rate 14 18 Blood Pressure 152/78 H 162/91 H Pulse Oximetry 95 92 96 Oxygen Delivery Method Room Air Oxygen Flow Rate 0 Narrative Exam Narrative: HEENT is benign her cor is regular rhythm lungs are clear abdomen is obese but benign lumbar spine she has focal tenderness to palpation along the paraspinous muscles right greater than left she has minimal pain with gentle range of motion in the left hip is neurologically intact in the left lower extremity in the right lower extremity she has weakness of her quad and some mild weakness in her tibialis anterior fairly normal strength in her gastrocsoleus sensation slightly decreased on the lateral aspect of her right leg in into the dorsum of her right foot she can fire toe flexors and extensors calf to soft, she has some mild pain with range of motion in the right hip and she is tender over greater trochanter Objective Labs Result Diagrams: 01/09/20 04:46 01/09/20 04:46 Labs: Laboratory Results - last 24 hr 01/08/20 01/08/20 01/08/20 14:30 14:30 14:30 WBC 5.0 RBC 4.27 Hgb 12.1 Hct 36.7 MCV 86.1 MCH 28.4 MCHC 32.9 RDW 16.3 H Plt Count 264 Neut % (Auto) 63.5 Lymph % (Auto) 23.6 L [place] % (Auto) 7.1 Eos % (Auto) 5.0 H Baso % (Auto) 0.8 Neut # (Auto) 3200 Lymph # (Auto) 1200 [place] # (Auto) 400 Eos # (Auto) 300 Baso # (Auto) 0 Sodium 141 Potassium 4.1 Chloride 107 Carbon Dioxide 24 BUN 37 H Creatinine 1.80 H Estimated GFR 28.2 L BUN/Creatinine Ratio 20.6 Glucose 123 H Lactate Calcium 9.2 Magnesium Total Creatine Kinase 44 CK-MB (CK-2) TNP CK-MB (CK-2) Rel Index TNP Troponin I 0.035 H Urine Color Urine Appearance Urine pH Ur Specific [place] Urine Protein Urine Glucose (UA) Urine Ketones Urine Occult Blood Urine Nitrate Urine Bilirubin Urine Urobilinogen Ur Leukocyte Esterase Urine RBC Urine WBC Ur Transition Epith Cell Urine Bacteria Ur Culture Indicated? Micro UA Comment Nasal Screen MRSA (PCR) Stl C. cayetanensis PCR Stool Rotavirus (PCR) Stool Adenovirus (PCR) Stool Astrovirus (PCR) Stool Cryptosporidium PCR Stl E.coli Shiga Tox PCR St Sh/Enteroin Ecoli PCR Stool E coli O157 PCR Stl Enterotoxigenic E PCR Stool EPEC (PCR) Stl E. histolytica PCR Stool Giardia Lamblia PCR Stool Sapovirus (PCR) Stl P. shigelloides PCR St Y.enterocolitica PCR Stool Vibrio (PCR) Stl Vibrio cholerae PCR Stl Enteroaggr Ecoli PCR Stl Norovirus GI/GII PCR Campylobacter (PCR) C. difficile Tox (PCR) Salmonella (PCR) 01/08/20 01/08/20 01/08/20 15:06 15:06 21:30 WBC RBC Hgb Hct MCV MCH MCHC RDW Plt Count Neut % (Auto) Lymph % (Auto) [place] % (Auto) Eos % (Auto) Baso % (Auto) Neut # (Auto) Lymph # (Auto) [place] # (Auto) Eos # (Auto) Baso # (Auto) Sodium Potassium Chloride Carbon Dioxide BUN Creatinine Estimated GFR BUN/Creatinine Ratio Glucose Lactate 0.8 Calcium Magnesium 1.7 Total Creatine Kinase CK-MB (CK-2) CK-MB (CK-2) Rel Index Troponin I Urine Color Urine Appearance Urine pH Ur Specific [place] Urine Protein Urine Glucose (UA) Urine Ketones Urine Occult Blood Urine Nitrate Urine Bilirubin Urine Urobilinogen Ur Leukocyte Esterase Urine RBC Urine WBC Ur Transition Epith Cell Urine Bacteria Ur Culture Indicated? Micro UA Comment Nasal Screen MRSA (PCR) Stl C. cayetanensis PCR Stool Rotavirus (PCR) Stool Adenovirus (PCR) Stool Astrovirus (PCR) Stool Cryptosporidium PCR Stl E.coli Shiga Tox PCR St Sh/Enteroin Ecoli PCR Stool E coli O157 PCR Stl Enterotoxigenic E PCR Stool EPEC (PCR) Stl E. histolytica PCR Stool Giardia Lamblia PCR Stool Sapovirus (PCR) Stl P. shigelloides PCR St Y.enterocolitica PCR Stool Vibrio (PCR) Stl Vibrio cholerae PCR Stl Enteroaggr Ecoli PCR Stl Norovirus GI/GII PCR Campylobacter (PCR) C. difficile Tox (PCR) Cancelled Salmonella (PCR) 01/08/20 01/08/20 01/09/20 21:30 21:30 04:46 WBC 6.0 RBC 4.17 Hgb 11.9 L Hct 35.9 L MCV 86.1 MCH 28.6 MCHC 33.2 RDW 16.4 H Plt Count 248 Neut % (Auto) 61.4 Lymph % (Auto) 22.8 L [place] % (Auto) 10.3 Eos % (Auto) 4.9 H Baso % (Auto) 0.6 Neut # (Auto) 3700 Lymph # (Auto) 1400 [place] # (Auto) 600 Eos # (Auto) 300 Baso # (Auto) 0 Sodium Potassium Chloride Carbon Dioxide BUN Creatinine Estimated GFR BUN/Creatinine Ratio Glucose Lactate Calcium Magnesium Total Creatine Kinase CK-MB (CK-2) CK-MB (CK-2) Rel Index Troponin I Urine Color Urine Appearance Urine pH Ur Specific [place] Urine Protein Urine Glucose (UA) Urine Ketones Urine Occult Blood Urine Nitrate Urine Bilirubin Urine Urobilinogen Ur Leukocyte Esterase Urine RBC Urine WBC Ur Transition Epith Cell Urine Bacteria Ur Culture Indicated? Micro UA Comment Nasal Screen MRSA (PCR) Negative for mrsa Stl C. cayetanensis PCR Not detected Stool Rotavirus (PCR) Not detected Stool Adenovirus (PCR) Not detected Stool Astrovirus (PCR) Not detected Stool Cryptosporidium PCR Not detected Stl E.coli Shiga Tox PCR Not detected St Sh/Enteroin Ecoli PCR Not detected Stool E coli O157 PCR Not detected Stl Enterotoxigenic E PCR Not detected Stool EPEC (PCR) Not detected Stl E. histolytica PCR Not detected Stool Giardia Lamblia PCR Not detected Stool Sapovirus (PCR) Not detected Stl P. shigelloides PCR Not detected St Y.enterocolitica PCR Not detected Stool Vibrio (PCR) Not detected Stl Vibrio cholerae PCR Not detected Stl Enteroaggr Ecoli PCR Not detected Stl Norovirus GI/GII PCR Not detected Campylobacter (PCR) Not detected C. difficile Tox (PCR) Not detected Salmonella (PCR) Not detected 01/09/20 01/09/20 04:46 06:20 WBC RBC Hgb Hct MCV MCH MCHC RDW Plt Count Neut % (Auto) Lymph % (Auto) [place] % (Auto) Eos % (Auto) Baso % (Auto) Neut # (Auto) Lymph # (Auto) [place] # (Auto) Eos # (Auto) Baso # (Auto) Sodium 139 Potassium 3.8 Chloride 108 H Carbon Dioxide 23 BUN 34 H Creatinine 1.70 H Estimated GFR 30.1 L BUN/Creatinine Ratio 20.0 Glucose 84 Lactate Calcium 9.1 Magnesium Total Creatine Kinase CK-MB (CK-2) CK-MB (CK-2) Rel Index Troponin I Urine Color Red Urine Appearance Sl cloudy Urine pH 6.5 Ur Specific [place] 1.010 Urine Protein 3+ H Urine Glucose (UA) Trace H Urine Ketones Negative Urine Occult Blood 3+ H Urine Nitrate Negative Urine Bilirubin Negative Urine Urobilinogen 0.2 Ur Leukocyte Esterase 1+ H Urine RBC 30-100/hpf H Urine WBC 0-1/hpf Ur Transition Epith Cell 0-1/hpf Urine Bacteria None seen Ur Culture Indicated? Specimen cultured Micro UA Comment Nasal Screen MRSA (PCR) Stl C. cayetanensis PCR Stool Rotavirus (PCR) Stool Adenovirus (PCR) Stool Astrovirus (PCR) Stool Cryptosporidium PCR Stl E.coli Shiga Tox PCR St Sh/Enteroin Ecoli PCR Stool E coli O157 PCR Stl Enterotoxigenic E PCR Stool EPEC (PCR) Stl E. histolytica PCR Stool Giardia Lamblia PCR Stool Sapovirus (PCR) Stl P. shigelloides PCR St Y.enterocolitica PCR Stool Vibrio (PCR) Stl Vibrio cholerae PCR Stl Enteroaggr Ecoli PCR Stl Norovirus GI/GII PCR Campylobacter (PCR) C. difficile Tox (PCR) Salmonella (PCR) MRI scan shows spinal stenosis with right greater than left neural foraminal narrowing specially at L4-5 without severe progression in comparison to previous scans, there is no significant central compression. Assessment & Plan Assessment & Plan narrative: Impression is spinal stenosis with right leg radiculopathy with some worsening in comparison to previously but no severe compression on her skin. She had a history of a UTI which has been treated I do think she is a candidate for an epidural cortisone injection. She is currently in the hospital and we may be able to ask Dr. Babb to consider an epidural cortisone injection tomorrow. Her clinical exam and radiographs do not suggest an acute cauda equina syndrome.
[2020-01-09] MEDS: GABAPENTIN 300 MG CAPSULE PO ×2 (12:58→21:43)
--- NOTE | 2020-01-09 14:18 | CM.DANOTE ---
DCP/Assessment: Reviewed chart. Patient is a 64yr old female [facility] with [facility] and inability to mobilize. [facility]20 with [facility] , caregivers, and son support. PCP is Dr. Null. Primary payor is 1)Med ADV plan? 2)Medicaid. Met with patient explained CM role. 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 Patient reports that she came back because she was unable to move and had uncontrolled diarrhea. Spoke with Dr. Pitts and team in agreement that patient will need placement at time of d/c. Patient aware and agreeable to placement for rehabilitation. Provided patient with contracted SNF list and first choice is [facility]. Placed call to admit and faxed demographic sheet to facility. Case to be reviewed tomorrow 01-10-20 when April returns. Patient has both PT/OT ordered. Patient encouraged to do both in order for insurance to pay for rehabilitation. Patient also made aware that if she does not progress will need to consider [facility] placement. Patient currently has JENNI and caregiver/Jossie 3x per week. Left message with [facility] requesting call back to discuss case with JENNI PATEL. P: SNF when medically stable. Patient eligible on Friday01-11-20. CHRISTINA Murray Discharge Planning/Care Management CM Discharge Assessment Start: 01/09/20 14:09 Freq: Status: Active Protocol: Document 01/09/20 14:09 KJS (Rec: 01/09/20 14:18 KJS [id number]) Discharge Planning Assessment Assigned Solar [employer]ov[employer] Installer CHRISTINA Murray Contact Information Vignesh Galvez (son) [phone] Advance Directives? No History Provided By Patient,Medical Record Has Patient been admitted in last 30 Yes days? Comment Patient under here last week admitted 01-03 (OBS) discharged home with home health through [facility] on 01-06-19. Prior Living Arrangements Apartment/Condo Household Members children,caregiver Comment Caregiver (Jossie)# comes 3x per week from [facility]. Type of transporation used prior to Relies on Others admit Independent with ADL's No Is patient alert and oriented? Yes Needs Assistance With Bathing,Grooming,Meal Prep, Toileting,Managing Medications ,Home Chores / Shopping Caregiver for Another No Community Services used prior to Home Health Nurse admission: Comment Patient with caregiver and Home Health arranged through [facility] last admit. DME Already Rented / Owned FWW / Walker Name of Agency [facility] Contact Phone see above Comment [facility] transitional care liaison is Marcus # [phone]. Message left with agency on Friday requesting call back re: mutal client. Patient/Family Preference [facility] Barriers to Discharge Yes Comment Patient will need SNF for therapy and possibly long-term placement and/or increased caregiver services in the home . Discharge Plan [facility] Community Services Physical Therapy,Occupational Therapy,Home Health Aid,Home Health Nurse Transportation Arrangement Pending Referrals Initiated Correction If patient plan is SNF: Has PASSR been No completed? Inpatient Status as of 01/09/20 Medicare Choice List Provided Yes SNF/HH Preference [facility] first SNF choice. Placed call to w/e admit and faxed demographic sheet to [facility]. April to review in AM on 01-10-20. Has Agency SNF been contacted Yes Whiteboard Updated in Patient Room with Yes name and ext. # of Solar Photovoltaic Installer Review Status In Process Next Review Type Continued Stay Review
--- NOTE | 2020-01-09 15:50 | PM.PN.1 ---
Subjective Subjective Date Patient Seen: 01/09/20 Interval history: Elizabeth Prince is a 64-year-old female with past medical history significant for coronary artery disease status post MA and CABG x2 vessels, hypertension, hyperlipidemia, CHF, diabetes mellitus type 2, non-insulin using, with complication of polyneuropathy and chronic kidney disease stage 3 COPD/asthma, iron deficiency anemia, chronic pain (OA, sciatica), psoriasis, and severe untreated depression who presented to the ED and was readmitted with progressive worsening weakness and incontinence of bowel and bladder. The patient is resting in bed comfortably. She reports worsening right lower extremity pain and trouble controlling her bowel and bladder for which she has been progressively more incontinent because she is unable to hold it. She voices frustration with her progressive weakness and lack of assistance at home. She denies abdominal pain. An abdominal series performed today redemonstrates small bowel ileus and plan for small-bowel follow-through tomorrow. Her increased bowel movements and intermittent incontinence are likely related to encopresis/stooling around hard stool. She denies saddle anesthesia. Continue physical and occupational therapy. Exam Vital Signs (past 8 hours): - 01/09/20 08:00 01/09/20 11:00 01/09/20 12:00 Temperature 97.0 F L 97.4 F L Pulse Rate 76 74 Respiratory Rate 18 16 Blood Pressure 162/91 H 140/67 Pulse Oximetry 96 96 99 Oxygen Delivery Method Room Air Oxygen Flow Rate 0 Narrative Exam Narrative: General: Older female lying in bed and in no acute distress, appears older than stated age in chronically ill, well-developed, well-nourished, mildly irritable but mood seems improved and otherwise appropriately interactive. HEENT: Normocephalic, atraumatic. External ears without defect. Pupils equal, round, and reactive to light. Anicteric sclerae, moist conjunctivae, and no lid lag. Neck: Supple with full range of motion. No lymphadenopathy or thyromegaly. Cardiovascular: Regular rate and rhythm without murmurs, rubs, or gallops appreciated. Pulmonary: Clear to auscultation bilaterally without crackles, wheezes, or rhonchi. Normal respiratory effort with no use of accessory muscles. Abdomen: Soft, bowel sounds present, nontender, nondistended. No hepatosplenomegaly or masses appreciated. Extremities: No clubbing, cyanosis, or edema. Skin: Elizabeth intertrigo in submammary folds, inguinal folds and perineum. Neurological: Cranial nerves grossly intact. Generalized weakness R>L with +4/5 MS and no focal neurological deficits. Psychiatric: Severely depressed mood with slight irritability but improved mood and affect. Alert and oriented to person, place, and time. Objective Labs Result Diagrams: 01/09/20 04:46 01/10/20 04:56 Labs: Laboratory Results - last 24 hr 01/08/20 01/08/20 01/08/20 15:06 21:30 21:30 WBC RBC Hgb Hct MCV MCH MCHC RDW Plt Count Neut % (Auto) Lymph % (Auto) [place] % (Auto) Eos % (Auto) Baso % (Auto) Neut # (Auto) Lymph # (Auto) [place] # (Auto) Eos # (Auto) Baso # (Auto) Sodium Potassium Chloride Carbon Dioxide BUN Creatinine Estimated GFR BUN/Creatinine Ratio Glucose Calcium Magnesium 1.7 Urine Color Urine Appearance Urine pH Ur Specific [place] Urine Protein Urine Glucose (UA) Urine Ketones Urine Occult Blood Urine Nitrate Urine Bilirubin Urine Urobilinogen Ur Leukocyte Esterase Urine RBC Urine WBC Ur Transition Epith Cell Urine Bacteria Ur Culture Indicated? Micro UA Comment Nasal Screen MRSA (PCR) Stl C. cayetanensis PCR Not detected Stool Rotavirus (PCR) Not detected Stool Adenovirus (PCR) Not detected Stool Astrovirus (PCR) Not detected Stool Cryptosporidium PCR Not detected Stl E.coli Shiga Tox PCR Not detected St Sh/Enteroin Ecoli PCR Not detected Stool E coli O157 PCR Not detected Stl Enterotoxigenic E PCR Not detected Stool EPEC (PCR) Not detected Stl E. histolytica PCR Not detected Stool Giardia Lamblia PCR Not detected Stool Sapovirus (PCR) Not detected Stl P. shigelloides PCR Not detected St Y.enterocolitica PCR Not detected Stool Vibrio (PCR) Not detected Stl Vibrio cholerae PCR Not detected Stl Enteroaggr Ecoli PCR Not detected Stl Norovirus GI/GII PCR Not detected Campylobacter (PCR) Not detected C. difficile Tox (PCR) Cancelled Not detected Salmonella (PCR) Not detected 01/08/20 01/09/20 01/09/20 21:30 04:46 04:46 WBC 6.0 RBC 4.17 Hgb 11.9 L Hct 35.9 L MCV 86.1 MCH 28.6 MCHC 33.2 RDW 16.4 H Plt Count 248 Neut % (Auto) 61.4 Lymph % (Auto) 22.8 L [place] % (Auto) 10.3 Eos % (Auto) 4.9 H Baso % (Auto) 0.6 Neut # (Auto) 3700 Lymph # (Auto) 1400 [place] # (Auto) 600 Eos # (Auto) 300 Baso # (Auto) 0 Sodium 139 Potassium 3.8 Chloride 108 H Carbon Dioxide 23 BUN 34 H Creatinine 1.70 H Estimated GFR 30.1 L BUN/Creatinine Ratio 20.0 Glucose 84 Calcium 9.1 Magnesium Urine Color Urine Appearance Urine pH Ur Specific [place] Urine Protein Urine Glucose (UA) Urine Ketones Urine Occult Blood Urine Nitrate Urine Bilirubin Urine Urobilinogen Ur Leukocyte Esterase Urine RBC Urine WBC Ur Transition Epith Cell Urine Bacteria Ur Culture Indicated? Micro UA Comment Nasal Screen MRSA (PCR) Negative for mrsa Stl C. cayetanensis PCR Stool Rotavirus (PCR) Stool Adenovirus (PCR) Stool Astrovirus (PCR) Stool Cryptosporidium PCR Stl E.coli Shiga Tox PCR St Sh/Enteroin Ecoli PCR Stool E coli O157 PCR Stl Enterotoxigenic E PCR Stool EPEC (PCR) Stl E. histolytica PCR Stool Giardia Lamblia PCR Stool Sapovirus (PCR) Stl P. shigelloides PCR St Y.enterocolitica PCR Stool Vibrio (PCR) Stl Vibrio cholerae PCR Stl Enteroaggr Ecoli PCR Stl Norovirus GI/GII PCR Campylobacter (PCR) C. difficile Tox (PCR) Salmonella (PCR) 01/09/20 06:20 WBC RBC Hgb Hct MCV MCH MCHC RDW Plt Count Neut % (Auto) Lymph % (Auto) [place] % (Auto) Eos % (Auto) Baso % (Auto) Neut # (Auto) Lymph # (Auto) [place] # (Auto) Eos # (Auto) Baso # (Auto) Sodium Potassium Chloride Carbon Dioxide BUN Creatinine Estimated GFR BUN/Creatinine Ratio Glucose Calcium Magnesium Urine Color Red Urine Appearance Sl cloudy Urine pH 6.5 Ur Specific [place] 1.010 Urine Protein 3+ H Urine Glucose (UA) Trace H Urine Ketones Negative Urine Occult Blood 3+ H Urine Nitrate Negative Urine Bilirubin Negative Urine Urobilinogen 0.2 Ur Leukocyte Esterase 1+ H Urine RBC 30-100/hpf H Urine WBC 0-1/hpf Ur Transition Epith Cell 0-1/hpf Urine Bacteria None seen Ur Culture Indicated? Specimen cultured Micro UA Comment Nasal Screen MRSA (PCR) Stl C. cayetanensis PCR Stool Rotavirus (PCR) Stool Adenovirus (PCR) Stool Astrovirus (PCR) Stool Cryptosporidium PCR Stl E.coli Shiga Tox PCR St Sh/Enteroin Ecoli PCR Stool E coli O157 PCR Stl Enterotoxigenic E PCR Stool EPEC (PCR) Stl E. histolytica PCR Stool Giardia Lamblia PCR Stool Sapovirus (PCR) Stl P. shigelloides PCR St Y.enterocolitica PCR Stool Vibrio (PCR) Stl Vibrio cholerae PCR Stl Enteroaggr Ecoli PCR Stl Norovirus GI/GII PCR Campylobacter (PCR) C. difficile Tox (PCR) Salmonella (PCR) Assessment & Plan Assessment & Plan narrative: Elizabeth Prince is a 64-year-old female with past medical history significant for coronary artery disease status post MA and CABG x2 vessels, hypertension, hyperlipidemia, CHF, diabetes mellitus type 2, non-insulin using, with complication of polyneuropathy and chronic kidney disease stage 3 COPD/asthma, iron deficiency anemia, chronic pain (OA, sciatica), psoriasis, and severe untreated depression who presented to the ED and was readmitted with progressive worsening weakness and incontinence of bowel and bladder. 1. Chronic progressive weakness, secondary to spinal stenosis with right lower extremity radiculopathy, resulting in multiple falls with failure to thrive, present on admission. Active. -Patient has had multiple recurrent falls due to chronic progressive generalized weakness. She returns to the hospital for reported inability to lift right leg with radicular pain and weakness of left leg and intermittent incontinence of bowel and bladder. She denies saddle anesthesia. Patient's exam findings and MRI are not consistent with cauda equina syndrome and patient does not appear any weaker than previous hospitalization. -MR lumbar spine demonstrated multiple level broad-based posterior disc bulge and mild facet arthropathy unchanged. Mild central canal narrowing and severe effacement of both lateral recesses although right slightly greater than left. Associated compression of the descending L5 nerve roots. This is slightly progressed on the right since the prior study. No change on the left. Moderate to severe bilateral foraminal narrowing with mild compression of the exiting nerve roots -Patient has scheduled epidural steroid injection on 01/10/[address] Mourning. Requested orthopedic surgery consult related to worsening condition. 2. Small bowel ileus, secondary to acute on chronic constipation, present on admission. Active. -Patient reports recent loose watery stool likely telephone claims representative of encoparesis with inability to hold bowel at times. Patient does not have cauda equina syndrome and believes that her bowel incontinence is related to urge, liquid stool and inability to get to bedside commode quickly due to weakness and inadequate assistant federal public defender. -Previous CT abdomen and pelvis with contrast demonstrated possible small and large bowel ileus. -Repeat abdominal series demonstrated small bowel ileus. -GI stool PCR negative. -Plan for small-bowel follow-through which will be diagnostic and therapeutic tomorrow morning. 3. Chronic kidney disease stage 4, present on admission. Stable. -Patient is followed by Nephrology, Dr. Bernardo. -Patient was previously treated pansensitive E. coli UTI with ceftriaxone and nitrofurantoin. -Baseline creatinine is variable appears to be between 1.8-2.2. -Continue to avoid nephrotoxic agents. -Continue to monitor renal function periodically. 4. Elizabeth intertrigo, chronic present on admission. Stable. -Patient has intertrigo of inguinal, intergluteal, and submammary regions. -Patient has received fluconazole previously. Continue nystatin powder as patient is having improvement in rash and ordered Ketoconazole cream to rash daily. 5. 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 Active. -On previous admission the patient's depression, in addition to radicular pain, was thought to be a driving factor to the patient's progressive disability and deconditioning. -Recently started on and will continue escitalopram 10 mg daily. Patient denies suicidal or homicidal ideation. Although early to evaluate response to SSRI patient's mood seems improved. Continue to monitor patient closely for suicidal and/or homicidal ideations. May consider titrating up to 20 mg daily for full efficacy per PCP. -Highly recommend referral to outpatient cognitive behavioral therapy per PCP. 6. Diabetes mellitus type 2, non-insulin using, chronic, present on admission. Stable. -Hemoglobin A1c 5.7% indicative excellent glycemic control and now in the range of prediabetes. -Patient no longer taking metformin due to advanced CKD and glipizide was discontinued during her last hospitalization due to high risk of hypoglycemia. -Continue diet control of diabetes with carbohydrate consistent/heart healthy diet. 7. Coronary artery disease, chronic, present on admission. Stable. -Continue home atorvastatin 20 mg daily at bedtime. Clopidogrel has been held since discharge for scheduled epidural steroid injection plan for 01/10/2020. 8. Hypertension, chronic, present on admission. Stable. -Continue losartan 50 daily. Code status: Full Code. Patient denies having a health directive. She designates her son, Vignesh, as a surrogate decision maker. VTE prophylaxis: SCDs, Lovenox Disposition: Patient likely discharge to retirement facility in the next several days with assistance of MILITARY COMMUNICATIONS SPECIALIST and state placement.
--- NOTE | 2020-01-09 16:45 | PT.IIE ---
Surgical History (Last Reviewed 01/09/20 @ 12:28 by Linda Pack MD) Hx of heart surgery (Resolved 1991) Hx of surgical procedure (Resolved 03/2018) Status post cholecystectomy (1984) Status post coronary artery bypass graft (06/2012) Status post hysterectomy (1985) Status post tubal ligation Medical History (Last Reviewed 01/09/20 @ 12:28 by Linda Pack MD) Anemia (Chronic 1996) Arthritis (Chronic Unknown) Asthma (Chronic 1979) Cardiac arrhythmia (Chronic 1991) Cataracts, bilateral (Chronic 1996) Chickenpox (Resolved) Chickenpox (Resolved) CKD (chronic kidney disease) (Chronic 1979) COPD (chronic obstructive pulmonary disease) (Chronic 1979) Coronary artery disease (Chronic) Coronary artery disease (Chronic 1991) Depression (Chronic 1979) Diabetes (Chronic 1988) Diabetic polyneuropathy (Chronic) Essential hypertension (Chronic) Gastroesophageal reflux disease (Chronic) GERD (gastroesophageal reflux disease) (Chronic 1978) Hyperlipemia (Chronic Unknown) Hyperlipidemia (Chronic) Hypertension (Chronic 1991) Iron deficiency (Resolved) Lower back pain (Chronic 12/2015) Lower extremity edema (Chronic) Measles (Resolved) Myocardial infarction (Resolved 1991) Neuropathy (Chronic Unknown) Osteoarthritis (Chronic) Psoriasis (Chronic 2014) Skin cancer (Resolved 2007) Stage 3 chronic kidney disease (Chronic) Type 2 diabetes mellitus (Resolved) Physical Therapy Inpatient Evaluation/Re-Eval M1 PT/OT-IP Prior Functional Status Start: 01/09/20 08:26 Freq: NEEDED Status: Active Protocol: Document 01/09/20 16:00 AW (Rec: 01/09/20 16:45 AW [id number]) Medical Review Prior Functional Status Medical History Reviewed Yes Communication Able to make needs known Mobility and Gait Pt was able to ambulate using single quad cane with assist for transfers ~2 weeks ago but has been needing increased assistance due to RLE and low back pain Activities of Daily Living and IADL's Pt reports her caregivers assist with dressing for efficiency's sake. She showers with CG assist in order to transfer into the tub and to do all washing due to pt's inability to keep arms elevated above shoulder level. She states she performs all toileting tasks independently. Prior Functional Level (Other details) Pt has caregiver support [facility] [id number] and [facility] [phone]. Her son, Vignesh, lives with her and also provides support. Typically has no caregiver support on the weekends. Social History Household Members children,caregiver Living Arrangements Apartment/Condo Number of Floors (Floors) Two Floors Number of Stairs To Enter/Railing? 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, bedrooms and bathrooms up 13 stairs with narrow bilateral rails Home Environment Standard Height Toilet,Walk in Shower Home Equipment Front Wheel Walker,Quad Cane, Bedside Commode,Shower Seat with Backrest,Hand Held Shower ,Grab Bars In Shower M2 PT-IP Current Condition Start: 01/09/20 08:26 Freq: NEEDED Status: Active Protocol: Document 01/09/20 16:00 AW (Rec: 01/09/20 16:45 AW [id number]) Physical Therapy Current Condition Current Condition Evaluation Date 01/09/20 Treatment Diagnosis increased RLE weakness, pain; impaired mobility Onset Date 01/08/20 Weight Bearing Status Weight Bearing Status Full Weight Bearing M3 PT-IP Subjective Start: 01/09/20 08:26 Freq: NEEDED Status: Active Protocol: Document 01/09/20 16:00 AW (Rec: 01/09/20 16:45 AW [id number]) Subjective Physical Therapy Visit Type Type Initial Evaluation Visit Start Time 15:07 Visit Stop Time 15:45 Total Visit Minutes 38 Number of DATABASE SUPPORT Visits 0 Physical Therapy Visit Comments Patient Comments Pt is fearful of pain with movement but willing to participate with PT Patient Goals Pt wants to get stronger in order to be able to participate more in her own care Therapy Pain Assessment Pain When Pain Assessed During Mobility Pain Present Pain Present Pain Reported Location Lower Back Intensity 10 Scale Used 8/10 at rest; 10/10 with mobility Pain Behaviors Calling Out,Facial Grimacing, Guarding,Wincing Pain Management Techniques Distraction,Re-positioning, Timing of Activity with Medications M4 PT-IP Mobility and Gait Start: 01/09/20 08:26 Freq: NEEDED Status: Active Protocol: Document 01/09/20 16:00 AW (Rec: 01/09/20 16:45 AW [id number]) PT-Bed Mobility Assessment Supine to Sit Supine to Sit Moderate Assistance,1 Person Assistance,Head of Bed Elevated,Bedrails Scooting Scooting to Edge of Bed Minimal Assistance PT-Transfer Assessment Sit to and From Stand Sit to and from Stand Moderate Assistance,1 Person Assistance,Use of Upper Extremities Equipment Transfer Assistive Device Gait Belt,Front Wheeled Walker Orthotic/Prosthetic Devices or Brace: No Transfers Transfer Destination Chair Transfer Technique Stand Step Pivot Transfer Ability Level of Assist Minimal Assistance,1 Person Assistance Comments Mobility Comments Pt encountered sitting in bed with HOB at 30 degrees upon PT arrival. Pt completed supine to sit mod A x 1 with HOB lifted to 40 degrees and with heavy use of bed cane and bed rails. She scooted toward EOB min A x 1, again using the bed rail and bed cane to pull. She was able to sit EOB with BUE support for strength assessment. Pt then completed sit to stand from EOB using FWW mod A x 1 but had an immediate posterior LOB requiring her to sit again. Pt then stood again with FWW mod A x 1, taking time for room spinning sensation to kash before attempting transfer to chair. She ambulated two feet to the chair requiring min A x 1 and max cues for safe use of FWW to sit with poor eccentric control. Pt was positioned in the chair with call light and all needs within reach. RN was notified pt sitting up in chair without alarm. Gait Assessment Gait Gait Assistance Required: Minimum Assistance,1 Person Assist Distance (Feet) 2 Able to Maintain Weight Bearing Status Yes During Gait Assistive Devices Assistive Device Gait Belt,Front Wheeled Walker Orthotic/Prosthetic Devices or Brace: No Gait Deviations General Gait Pattern Antalgic,Decreased Stride Length,Decreased Feet Clearance,Flexed Trunk,Step-to Gait Factors Limiting Gait Function Factors Limiting Gait Function Decreased Activity Tolerance, Decreased Sensation,Decreased Strength,Difficulty Following Directions,Pain,Poor Balance, Poor Safety Awareness Comments Gait Comments See mobility comments. Stair Climbing Assessment Comments Stair Climbing Comments Not assessed. PT-Balance Assessment Sitting Balance and Reactions Static Sitting Balance Ability Good Dynamic Sitting Balance Ability Fair Standing Balance and Reactions Static Standing Balance Ability Fair Dynamic Standing Balance Ability Fair Device Used FWW M5 PT-IP Objective Assessments Start: 01/09/20 08:26 Freq: NEEDED Status: Active Protocol: Document 01/09/20 16:00 AW (Rec: 01/09/20 16:45 AW [id number]) Orientation Orientation/Cognition Level of Alertness Alert Orientation Name,Day of Week,Place, Situation Language Function Ability No Deficits Noted Safety Awareness Decreased Safety Awareness Memory Description No Deficits Noted Gross Range of Motion Upper Extremity ROM Assessment Within Functional Limits Lower Extremity ROM Assessment Bilaterally Impaired Strength Upper Extremity Strength Assessment Bilaterally Impaired Lower Extremity Strength Assessment Bilaterally Impaired Hip 3-/5 Knee 3+/5 Ankle 3+/5 Comments Strength Comments Pt has difficulty keeping her arms elevated above shoulder level due to pain and weakness . Coordination Assessment Gross Coordination Gross Coordination WNL Sensation Assessment Sensation Gross Sensation Right LE Impaired,Left LE Impaired Light Touch Impaired Sensation Description Numbness,Tingling Comments Sensation Comments Pt with neuropathy affecting legs distal to knee joint. She reports dulled sensation with distal more affected than proximal M6 PT-IP Treatment Start: 01/09/20 08:26 Freq: NEEDED Status: Active Protocol: Document 01/09/20 16:00 AW (Rec: 01/09/20 16:45 AW [id number]) Physical Therapy Treatment Education Education Provided Precautions,Safety Other Treatments Other Treatment Performed Provided education on role of PT, plan of care, benefits of continued mobility, risks of immobility, and safe use of FWW. M7 PT-IP Assessment and Plan Start: 01/09/20 08:26 Freq: NEEDED Status: Active Protocol: Document 01/09/20 16:00 AW (Rec: 01/09/20 16:45 AW [id number]) PT Summary Assessment and Plan Potential Rehabilitation Potential Good Status of Condition at Evaluation Evolving Summary Impairments Pain,ROM,Strength,Balance, Sensation,Bed Mobility, Transfers,Gait,Activity Tolerance Assessment Summary Bren is a 64 yo woman readmitted with worsening RLE and low back pain. She endorsed new onset difficulty with bowel and bladder continence, but states saddle sensation is normal. MRI of the lumbar spine was consistent with previous study ~ 1 year ago without significant changes. At baseline, pt states she could ambulate household distances with quad cane and could navigate up/down 13 steps in her apartment with narrow bilateral rails and CGA. She has caregiver support at home but not time study statistician. She receives assistance with some dressing tasks, showering, and driving. On evaluation, pt required min to mod assist x 1 with bed mobility and transfer, representing a significant decline in her mobility status. Pt will require SNF rehab at discharge in order to increase strength and safety in the home if she eventually returns. Goals Bed Mobility Goal Standby Assistance Transfer Goal Standby Assistance,Front Wheeled Walker Gait Goal Standby Assistance,Front Wheel Walker Gait Distance 100 Other Goals - up/down 13 stairs with bilateral rails CGA Days to Meet Goals 10 Frequency of Treatment Frequency Of Treatment Once a Day Treatment Plan Physical Therapy Treatment Plan Bed Mobility Training,Transfer Training,Gait Training, Therapeutic Exercise,Balance Retraining,Discharge Planning, Hot or Cold Pack,Neuromuscular Re-ed,Manual Therapy Other Recommendations and Next Treatment bed mobility, transfers, Focus assess gait with FWW if able Recommendations To Nursing Amount of Assist Needed 1 Person Assist,2 Person Assist Discharge Recommendations PT Discharge Recommendations SNF Rehab Other Discharge Recommendations SNF rehab vs home with 09/06 assist and home health depending on progress Transportation Needs at Discharge Private Vehicle,Wheelchair/ Cabulance
[2020-01-09] MEDS: ATORVASTATIN 20 MG TABLET PO (21:43)
[2020-01-09] MEDS: NYSTATIN OINTMENT 15 APPLIC/TUBE OINT...G. TOP (21:44)
[2020-01-10] VITALS (14 sets, daily range): BP systolic 133–184; BP diastolic 63–85; PULSE 66–90; RESP 16–20; TEMP 36.1–36.6; O2SAT 91–98
[2020-01-10] MEDS: CYCLOBENZAPRINE 10 MG TABLET PO ×2 (05:14→23:59)
[2020-01-10] MEDS: ACETAMINOPHEN 325 MG TABLET 650 MG PO ×2 (05:14→23:59)
[2020-01-10 05:28] LABS: Blood Urea Nitrogen 36 mg/dL (7-17); Calcium 9.1 mg/dL (8.4-10.2); Carbon Dioxide 22 mmol/L (22-32); Chloride 108 mmol/L (98-107); Estimated Glomerular Filt Rate 28.2 mL/min (>60); Glucose 120 mg/dL (80-110); HEMOLYSIS < 15 (0-50); Sodium 137 mmol/L (137-145)
--- NOTE | 2020-01-10 06:12 | PC.NURSE ---
Shotgun Shell Assembly Machine Adjuster Note-Patient slept intermittently, brief dry throughout night, bladder scanned in am for >600ml, order obtained for straight cath prn, not needed at this time due to patient extra large incontinence at 0600. Place on 1L NC while sleeping for SpO2 88%, SR, BBB on Tele. Medicated with Tylenol and Flexaril for lower back and Rt leg pain.
--- NOTE | 2020-01-10 08:26 | PC.NURSE ---
Addendum entered by Darleen Rodriguez R.N. 01/10/20 12:46: SBFT completed and pt returned to room- allowed to rest for approx 90 minutes prior to working with PT and bathing for the day- incont of large amount of liquid stool and then even more evacuated upon rising to bs- much encouragment needed for any movment but able to bear weight and use of fww- up on chair for her lunchtime meal Original Note: pt reports feeling dry ( r/t her urinary incontinence) she was sound asleep upon my return from initial assessment and so her breakfast was held for her- she denied pain but is jumpy and recoils wih any touch - even vital signs- will continue to monitor- tele= sr +bbb, scd's in place - removed 1l nc o2 for spo2 of 99% room air spo2 94-98%
[2020-01-10] MEDS: ENOXAPARIN 30 MG/0.3 ML SYRINGE SUBCUT (11:17)
[2020-01-10] MEDS: calcitrioL 0.25 MCG CAPSULE 0.5 MCG PO (11:18)
[2020-01-10] MEDS: GABAPENTIN 300 MG CAPSULE PO ×2 (11:18→21:37)
[2020-01-10] MEDS: LOSARTAN 50 MG TABLET PO (11:18)
[2020-01-10] MEDS: SODIUM CHLORIDE 0.9% FLUSH 10 ML IV ×2 (11:19→21:37)
[2020-01-10] MEDS: ESCITALOPRAM 10 MG TABLET PO (11:19)
[2020-01-10] MEDS: NYSTATIN OINTMENT 15 APPLIC/TUBE OINT...G. TOP ×2 (11:20→21:38)
[2020-01-10] MEDS: KETOCONAZOLE 2% CREAM 15 GM 1 APPLIC TOP (11:20)
--- NOTE | 2020-01-10 12:39 | PT.IPTN ---
Current Diagnoses Ileus, unspecified (01/08/20) Physical Therapy Treatment Note M2 PT-IP Current Condition Start: 01/09/20 08:26 Freq: NEEDED Status: Active Protocol: Document 01/09/20 16:00 AW (Rec: 01/09/20 16:45 AW [id number]) Physical Therapy Current Condition Current Condition Evaluation Date 01/09/20 Treatment Diagnosis increased RLE weakness, pain; impaired mobility Onset Date 01/08/20 Weight Bearing Status Weight Bearing Status Full Weight Bearing M3 PT-IP Subjective Start: 01/09/20 08:26 Freq: NEEDED Status: Active Protocol: Document 01/10/20 12:24 AW (Rec: 01/10/20 12:39 AW [id number]) Subjective Physical Therapy Visit Type Type Treatment Note Visit Start Time 11:42 Visit Stop Time 12:20 Total Visit Minutes 33 Notes Pt had bowel follow-through this morning and is experiencing increased diarrhea Physical Therapy Visit Comments Patient Comments Pt had bowel follow-through this morning and is experiencing increased diarrhea. Willing to attempt transfer to commode. Therapy Pain Assessment Pain When Pain Assessed During Mobility Pain Present Pain Present Denied Pain Location Lower Back Intensity 6 Scale Used Numeric (1 - 10) Pain Behaviors Facial Grimacing,Wincing Pain Management Techniques Distraction,Re-positioning, Timing of Activity with Medications M4 PT-IP Mobility and Gait Start: 01/09/20 08:26 Freq: NEEDED Status: Active Protocol: Document 01/10/20 12:24 AW (Rec: 01/10/20 12:39 AW [id number]) PT-Bed Mobility Assessment Supine to Sit Supine to Sit Moderate Assistance,1 Person Assistance,Head of Bed Elevated,Bedrails Scooting Scooting to Edge of Bed Contact Guard Assistance PT-Transfer Assessment Sit to and From Stand Sit to and from Stand Moderate Assistance,1 Person Assistance,Use of Upper Extremities Equipment Transfer Assistive Device Gait Belt,Front Wheeled Walker Transfers Transfer Destination Chair,Bedside Commode Transfer Technique Stand Step Pivot Transfer Ability Level of Assist Minimal Assistance,1 Person Assistance Comments Mobility Comments Pt encountered reclined in bed having just been bathed and changed by nursing. Pt reported she needed another briefs change since she had just soiled with increased diarrhea. Pt completed supine to sit mod A x 1 with use of bed rail and bed cane and assist to right her trunk. Sit to stand from EOB required mod A x 1 and FWW. She transferred to the BS min A x 1 with forward flexed posture but with safe use of FWW. After multiple sit to stands from the BS resulting in more episodes of diarrhea, pt was allowed to sit on the BSC with call light nearby. When called back into the room, pt stood using FWW mod A x 1 with assist from PT while RN performed pericare and placed new brief. Pt stood with FWW ~ 3 minutes without complaint of increased pain. Without a seated rest break, pt ambulated ~3 feet from BSC to chair and transferred with cues for use of BUE to slow her descent. Pt was positioned in the chair with lunch tray and call light within reach, chair alarm in place for safety. Gait Assessment Gait Gait Assistance Required: Minimum Assistance,1 Person Assist Distance (Feet) 3 Able to Maintain Weight Bearing Status Yes During Gait Assistive Devices Assistive Device Gait Belt,Front Wheeled Walker Orthotic/Prosthetic Devices or Brace: No Gait Deviations General Gait Pattern Antalgic,Decreased Stride Length,Decreased Feet Clearance,Flexed Trunk,Step-to Gait Factors Limiting Gait Function Factors Limiting Gait Function Decreased Activity Tolerance, Decreased Sensation,Decreased Strength,Difficulty Following Directions,Pain,Poor Balance, Poor Safety Awareness Comments Gait Comments See mobility comments Stair Climbing Assessment Comments Stair Climbing Comments Not assessed. Pt refused. M5 PT-IP Objective Assessments Start: 01/09/20 08:26 Freq: NEEDED Status: Active Protocol: Document 01/09/20 16:00 AW (Rec: 01/09/20 16:45 AW [id number]) Orientation Orientation/Cognition Level of Alertness Alert Orientation Name,Day of Week,Place, Situation Language Function Ability No Deficits Noted Safety Awareness Decreased Safety Awareness Memory Description No Deficits Noted Gross Range of Motion Upper Extremity ROM Assessment Within Functional Limits Lower Extremity ROM Assessment Bilaterally Impaired Strength Upper Extremity Strength Assessment Bilaterally Impaired Lower Extremity Strength Assessment Bilaterally Impaired Hip 3-/5 Knee 3+/5 Ankle 3+/5 Comments Strength Comments Pt has difficulty keeping her arms elevated above shoulder level due to pain and weakness . Coordination Assessment Gross Coordination Gross Coordination WNL Sensation Assessment Sensation Gross Sensation Right LE Impaired,Left LE Impaired Light Touch Impaired Sensation Description Numbness,Tingling Comments Sensation Comments Pt with neuropathy affecting legs distal to knee joint. She reports dulled sensation with distal more affected than proximal M6 PT-IP Treatment Start: 01/09/20 08:26 Freq: NEEDED Status: Active Protocol: Document 01/10/20 12:24 AW (Rec: 01/10/20 12:39 AW [id number]) Physical Therapy Treatment Education Education Provided Precautions,Safety Other Treatments Other Treatment Performed Continued to educate pt on risks of immobility with pt responding positively. M7 PT-IP Assessment and Plan Start: 01/09/20 08:26 Freq: NEEDED Status: Active Protocol: Document 01/10/20 12:24 AW (Rec: 01/10/20 12:39 AW [id number]) PT Summary Assessment and Plan Summary Impairments Pain,ROM,Strength,Balance, Sensation,Bed Mobility, Transfers,Gait,Activity Tolerance Progress Towards Goals Slow Progress due to Pain,Slow Progress due to Activity Tolerance Assessment Summary Bren transferred twice this session and was able to stand ~3 minutes for pericare. She shows good effort with therapy although she tends to fatigue quickly. She remains a good candidate for SNF rehab in order to increase her ability to participate in her own care at home if she is to return. Goals Bed Mobility Goal Standby Assistance Transfer Goal Standby Assistance,Front Wheeled Walker Gait Goal Standby Assistance,Front Wheel Walker Gait Distance 100 Other Goals - up/down 13 stairs with bilateral rails CGA Days to Meet Goals 9 Frequency of Treatment Frequency Of Treatment Once a Day Treatment Plan Physical Therapy Treatment Plan Bed Mobility Training,Transfer Training,Gait Training, Therapeutic Exercise,Balance Retraining,Discharge Planning, Hot or Cold Pack,Neuromuscular Re-ed,Manual Therapy Other Recommendations and Next Treatment transfers, assess gait with Focus FWW if able Recommendations To Nursing Amount of Assist Needed 2 Person Assist Discharge Recommendations PT Discharge Recommendations SNF Rehab Transportation Needs at Discharge Private Vehicle,Wheelchair/ Cabulance
--- NOTE | 2020-01-10 13:54 | PM.PN.1 ---
Subjective Subjective Date Patient Seen: 01/10/20 Interval history: Elizabeth Prince is a 64-year-old female with past medical history significant for coronary artery disease status post RI and CABG x2 vessels, hypertension, hyperlipidemia, CHF, diabetes mellitus type 2, non-insulin using, with complication of polyneuropathy and chronic kidney disease stage 3 COPD/asthma, iron deficiency anemia, chronic pain (OA, sciatica), psoriasis, and severe untreated depression who presented to the ED and was readmitted with progressive worsening weakness and incontinence of bowel and bladder. The patient is resting in bedside chair comfortably. The patient remains apathetic. She endorses mild headache. She has no other complaints and denies headache, chest pain, shortness of breath, abdominal pain, nausea, vomiting, fever, chills, dysuria, diarrhea or constipation. She has mild low back pain but reports this is tolerable. The patient underwent small-bowel follow-through today and has had several bowel movements since exam. She is voiding and eliminating without difficulty. For the most part the patient is continent of bowel and bladder and occasionally incontinent likely due to inability to hold bowel bladder until she gets to bedside commode. She denies saddle anesthesia. Continue physical and occupational therapy. Exam Vital Signs (past 8 hours): - 01/10/20 07:44 01/10/20 08:17 01/10/20 12:00 Temperature 97.8 F Pulse Rate 81 Respiratory Rate 18 Blood Pressure 140/74 Pulse Oximetry 96 96 95 Oxygen Delivery Method Room Air Oxygen Flow Rate 0 Narrative Exam Narrative: General: Older female sitting in bedside chair and in no acute distress, appears older than stated age and chronically ill, well-developed, well-nourished, mildly irritable but mood seems improved and otherwise appropriately interactive. HEENT: Normocephalic, atraumatic. External ears without defect. Pupils equal, round, and reactive to light. Anicteric sclerae, moist conjunctivae, and no lid lag. Neck: Supple with full range of motion. No lymphadenopathy or thyromegaly. Cardiovascular: Regular rate and rhythm without murmurs, rubs, or gallops appreciated. Pulmonary: Clear to auscultation bilaterally without crackles, wheezes, or rhonchi. Normal respiratory effort with no use of accessory muscles. Abdomen: Soft, bowel sounds present, nontender, nondistended. No hepatosplenomegaly or masses appreciated. Extremities: No clubbing, cyanosis, or edema. Skin: Elizabeth intertrigo in submammary folds, inguinal folds and perineum. Neurological: Cranial nerves grossly intact. Generalized weakness R>L with +4/5 MS and no focal neurological deficits. Psychiatric: Severely depressed mood with slight irritability and apathy but improved mood and affect. Alert and oriented to person, place, and time. Objective Labs Result Diagrams: 01/09/20 04:46 01/10/20 04:56 Labs: Laboratory Results - last 24 hr 01/10/20 04:56 Sodium 137 Potassium 4.0 Chloride 108 H Carbon Dioxide 22 BUN 36 H Creatinine 1.80 H Estimated GFR 28.2 L BUN/Creatinine Ratio 20.0 Glucose 120 H Calcium 9.1 Assessment & Plan Assessment & Plan narrative: Elizabeth Prince is a 64-year-old female with past medical history significant for coronary artery disease status post RI and CABG x2 vessels, hypertension, hyperlipidemia, CHF, diabetes mellitus type 2, non-insulin using, with complication of polyneuropathy and chronic kidney disease stage 3 COPD/asthma, iron deficiency anemia, chronic pain (OA, sciatica), psoriasis, and severe untreated depression who presented to the ED and was readmitted with progressive worsening weakness and incontinence of bowel and bladder. 1. Chronic progressive weakness, secondary to spinal stenosis with right lower extremity radiculopathy, resulting in multiple falls with failure to thrive, present on admission. Stable. -Patient has had multiple recurrent falls due to chronic progressive generalized weakness. She returns to the hospital for reported inability to lift right leg with radicular pain and weakness of left leg and intermittent incontinence of bowel and bladder. She denies saddle anesthesia. Patient's exam findings and MRI are not consistent with cauda equina syndrome and patient does not appear any weaker than previous hospitalization. -MR lumbar spine demonstrated multiple level broad-based posterior disc bulge and mild facet arthropathy unchanged. Mild central canal narrowing and severe effacement of both lateral recesses although right slightly greater than left. Associated compression of the descending L5 nerve roots. This is slightly progressed on the right since the prior study. No change on the left. Moderate to severe bilateral foraminal narrowing with mild compression of the exiting nerve roots -Patient has scheduled epidural steroid injection on 01/10/[address] Ferrer. Consult orthopedic surgery, Dr. Pack, who will plan to talk to her partners to see if LA is available while in hospital. Does not believe patient has cauda equina syndrome. 2. Small bowel ileus, secondary to acute on chronic constipation, present on admission. Resolved. 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 -Previous CT abdomen and pelvis with contrast demonstrated possible small and large bowel ileus. -Repeat abdominal series demonstrated small bowel ileus. -GI stool PCR negative. -Small-bowel follow-through did not demonstrate specific transition point with normal transit time. Study was also therapeutic as patient has had several bowel movements since. 3. Chronic kidney disease stage 4, present on admission. Stable. -Patient is followed by Nephrology, Dr. Bernardo. -Patient was previously treated pansensitive E. coli UTI with ceftriaxone and nitrofurantoin. -Baseline creatinine is variable appears to be between 1.8-2.2. -Continue to avoid nephrotoxic agents. -Continue to monitor renal function periodically. 4. Elizabeth intertrigo, chronic present on admission. Stable. -Patient has intertrigo of inguinal, intergluteal, and submammary regions. -Patient has received fluconazole previously. Continue nystatin powder as patient is having improvement in rash and ordered Ketoconazole cream to rash daily. 5. 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 Active. -On previous admission the patient's depression, in addition to radicular pain, was thought to be a driving factor to the patient's progressive disability and deconditioning. -Recently started on and will continue escitalopram 10 mg daily. Patient denies suicidal or homicidal ideation. Although early to evaluate response to SSRI patient's mood seems improved. Continue to monitor patient closely for suicidal and/or homicidal ideations. May consider titrating up to 20 mg daily for full efficacy per PCP. -Highly recommend referral to outpatient cognitive behavioral therapy per PCP. 6. Diabetes mellitus type 2, non-insulin using, chronic, present on admission. Stable. -Hemoglobin A1c 5.7% indicative excellent glycemic control and now in the range of prediabetes. -Patient no longer taking metformin due to advanced CKD and glipizide was discontinued during her last hospitalization due to high risk of hypoglycemia. -Continue diet control of diabetes with carbohydrate consistent/heart healthy diet. 7. Coronary artery disease, chronic, present on admission. Stable. -Continue home atorvastatin 20 mg daily at bedtime. Clopidogrel has been held since discharge for scheduled epidural steroid injection plan for 01/10/2020. 8. Hypertension, chronic, present on admission. Stable. -Continue losartan 50 daily. Code status: Full Code. Patient denies having a health directive. She designates her son, Vignesh, as a surrogate decision maker. VTE prophylaxis: SCDs, Lovenox Disposition: Patient likely discharge to [facility] facility in the next 1-2 days with assistance of PROMOTIONAL MODEL and state placement.
--- NOTE | 2020-01-10 15:47 | DI.RAD.S_ITS ---
PROCEDURE: [place] SMALL BOWEL FOLLOW THROUGH INDICATIONS: small bowel ileus COMPARISON: [facility], CR, XR ABDOMEN MIN 2V, 01/09/2020, 8:02. FINDINGS: KUB: Preprocedural zone manager film demonstrates a normal bowel gas pattern. No suspicious abdominal calcifications. Visualized solid organ contours appear normal. No suspicious bony abnormalities. Small bowel: There is normal transit time of barium through the small bowel. Small bowel loops are of normal caliber throughout. Mucosal folds are smooth and of normal thickness. No strictures, intraluminal masses, or extrinsic mass effects are noted. Diffuse spondylitic changes. IMPRESSION: No specific transition point identified. Normal transit time Dictated by: Tejinder Ferguson M.D. on 01/10/2020 at 13:29 Approved by: Tejinder Ferguson M.D. on 01/10/2020 at 13:30
--- NOTE | 2020-01-10 16:04 | OT.IP.EVAL ---
Current Diagnoses Ileus, unspecified (01/08/20) Past Medical History (Last Reviewed 01/09/20 @ 12:28 by Linda Pack MD) Anemia (Chronic 1996) Arthritis (Chronic Unknown) Asthma (Chronic 1979) Cardiac arrhythmia (Chronic 1991) Cataracts, bilateral (Chronic 1996) Chickenpox (Resolved) Chickenpox (Resolved) CKD (chronic kidney disease) (Chronic 1979) COPD (chronic obstructive pulmonary disease) (Chronic 1979) Coronary artery disease (Chronic) Coronary artery disease (Chronic 1991) Depression (Chronic 1979) Diabetes (Chronic 1988) Diabetic polyneuropathy (Chronic) Essential hypertension (Chronic) Gastroesophageal reflux disease (Chronic) GERD (gastroesophageal reflux disease) (Chronic 1978) Hyperlipemia (Chronic Unknown) Hyperlipidemia (Chronic) Hypertension (Chronic 1991) Iron deficiency (Resolved) Lower back pain (Chronic 12/2015) Lower extremity edema (Chronic) Measles (Resolved) Myocardial infarction (Resolved 1991) Neuropathy (Chronic Unknown) Osteoarthritis (Chronic) Psoriasis (Chronic 2014) Skin cancer (Resolved 2007) Stage 3 chronic kidney disease (Chronic) Type 2 diabetes mellitus (Resolved) Surgical History (Last Reviewed 01/09/20 @ 12:28 by Linda Pack MD) Hx of heart surgery (Resolved 1991) Hx of surgical procedure (Resolved 03/2018) Status post cholecystectomy (1984) Status post coronary artery bypass graft (06/2012) Status post hysterectomy (1985) Status post tubal ligation Occupational Therapy Inpatient Evaluation/Re-Eval M1 PT/OT-IP Prior Functional Status Start: 01/10/20 17:02 Freq: NEEDED Status: Active Protocol: Document 01/10/20 15:06 [facility] (Rec: 01/10/20 17:27 [facility] [id number]) Medical Review Prior Functional Status Medical History Reviewed Yes Communication Able to make needs known Mobility and Gait Pt was able to ambulate using single quad cane with assist for transfers ~2 weeks ago but has been needing increased assistance due to RLE and low back pain Activities of Daily Living and IADL's Pt reports her caregivers assist with dressing for efficiency's sake. She showers with CG assist in order to transfer into the tub and to do all washing due to pt's inability to keep arms elevated above shoulder level. She states she performs all toileting tasks independently. Prior Functional Level (Other details) Pt has caregiver support [facility] [phone] and [place] [id number]. Her son, Vignesh, lives with her and also provides support. Typically has no caregiver support on the weekends. Social History Household Members children,caregiver Living Arrangements Apartment/Condo Number of Floors (Floors) Two Floors Number of Stairs To Enter/Railing? Apartment is two stories with kitchen and living room on entry writer, bedrooms and bathrooms up 13 stairs with narrow bilateral rails Home Environment Standard Height Toilet,Walk in Shower Home Equipment Front Wheel Walker,Quad Cane, Bedside Commode,Shower Seat with Backrest,Hand Held Shower ,Grab Bars In Shower Additional Social History Comment Pt just discharged home on from the hospital for similar episode of weakness, diarrhea and incontinence. M2 OT-IP Current Condition Start: 01/10/20 17:02 Freq: Status: Active Protocol: Document 01/10/20 15:06 [facility] (Rec: 01/10/20 17:27 [facility] [id number]) Occupational Therapy Current Condition Current Condition Evaluation Date 01/10/20 Treatment Diagnosis Chronic progressive weakness due to spinal stenosis, decreased mobility Diagnosis Onset Date 01/08/20 Post Operative Precautions Other Precautions Follow log rolling due to spinal stenosis. Weight Bearing Status Weight Bearing Status Weight Bear as Tolerated M3 OT- IP Subjective and Pain Start: 01/10/20 17:02 Freq: Status: Active Protocol: Document 01/10/20 15:06 [facility] (Rec: 01/10/20 17:27 [facility] [id number]) OT- Subjective Occupational Therapy Visit Type Type Initial Evaluation Visit Start Time 15:06 Visit Stop Time 16:04 Total Visit Minutes 58 Occupational Therapy Visit Comments Patient Comments Pt's son present for most of the session. Pt cooperative and wanting to use the bathroom. Initially needing some encouragement to participate in OT eval. Patient/Caregiver Goals Pt wanting to be able to care for her again especially for toileting and dressing needs and be able to move better. OT Pain Assessment Pain When Pain Assessed At Rest Pain Present Pain Present Denied Pain M4 OT- IP ADL's Start: 01/10/20 17:02 Freq: Status: Active Protocol: Document 01/10/20 15:06 [facility] (Rec: 01/10/20 17:27 [facility] [id number]) OT BZL-Vtcu-Vyrzcvf Comments OT Self-Feeding Comments Pt able to drink from her cup independently. OT ADL-Grooming Comments OT Grooming Comments Pt states already did her grooming needs earlier. OT ADL-Dressing General Eval Lower Body Dressing Ability Minimal Assistance,Maximum Assistance Comments OT Dressing Comments Educated pt on use of sock aid and afterwards able to use with CURT. Pt states at home has trouble to get her legs into her pants. OT ADL-Toileting General Evaluation Toileting Ability Maximum Assistance Areas Needing Assistance Manage Clothing,Perform Perineal Hygiene Comments OT Toileting Comments Pt MAX A for hygiene and brief management needs while another person assist to stand with FWW and CURT. Notified nursing of multiple diarrhea while sitting on the toilet. OT ADL-Bathing Comments OT Bathing Comments Not at this time due to fatigue. M5 OT- IP IADL's Start: 01/10/20 17:02 Freq: Status: Active Protocol: Document 01/10/20 15:06 [facility] (Rec: 01/10/20 17:27 [facility] [id number]) OT-Instrumental Activities of Daily Living Deficits IADL Deficits Identified Deficits Home Safety Awareness Ability to Problem Solve Emergency Unable to Problem Solve Situations Medication Management Medication Management Comments Pt states does her own medications. Caregiver from last admission provides supervision for meds and finances. Money Management Money Management Comments Pt states writes money orders. Meal Preparation Meal Preparation Caregiver Provides Assist Hansard Reporter Hansard Reporter Caregiver Provides Assist Driving Driving Caregiver Provides Assist M6 OT- IP Functional Cognition Start: 01/10/20 17:02 Freq: Status: Active Protocol: Document 01/10/20 15:06 [facility] (Rec: 01/10/20 17:27 [facility] [id number]) Cognitive Factors Limiting Selfcare Function Cognitive Ability Level of Alertness Alert Patient Orientation Name,Place,Situation Attention Span Ability Capable of Focused Attention, Capable of Sustained Attention Ability to Follow Commands Able to Follow One Step Commands Memory Description Short Term Impaired Problem Solving Ability Unable to Identify Errors, Needs Assist to Identify Solutions Cognitive Comments Cognitive Assessment Comments Pt needing vc for safety awareness for use of FWW , to push up with her hands coming to stand. Pt not remembering much detail of her last hospital stay here. Pt appears more motivated and willing to participate in therapy this admission. Pt realizes that she is weak and now willing to go to skilled rehab to get stronger. Spoke at length with pt and son regarding having goals for herself to work towards. OT- Vision and Hearing OT- Hearing Assessment OT- Hearing Assessment WFL M7 OT- IP Mobility and Balance Start: 01/10/20 17:02 Freq: Status: Active Protocol: Document 01/10/20 15:06 [facility] (Rec: 01/10/20 17:27 [facility] [id number]) OT- Bed Mobility Assessment Rolling Type of Rolling Roll to Left Level of Assistance Moderate Assistance Supine to Sit Supine to Sit Assist Moderate Assistance,1 Person Assistance Sit to Supine Sit to Supine Assist Moderate Assistance,1 Person Assistance OT-Transfer Assessment Sit to and From Stand Sit to and from Stand Moderate Assistance,1 Person Assistance Transfers Transfer Ability Minimal Assistance Technique Transfer Destination Bed,Toilet Transfer Technique Stand Step Pivot Devices Transfer Assistive Devices Gait Belt,Front Wheeled Walker Comments Mobility Comments Assist to roll to the left and use of hand to bedrail to pull herself over. Assist to get from side lying to sitting. Pt initially states she is dizzy and noted some nystagmus during eye tracking. OT- Gait Assessment Gait Gait Assistance Required: Minimum Assistance Assistive Devices Assistive Device Gait Belt,Front Wheeled Walker Comments Gait Ability Comments CURT with FWW and able to walk to and from the toilet. Assist due to unsteadiness on her feet and occasional assist to keep the FWW closer to her while walking. OT- Balance Assessment Sitting Balance and Reactions Static Sitting Balance Ability Good Dynamic Sitting Balance Ability Fair Standing Balance and Reactions Static Standing Balance Ability Poor Dynamic Standing Balance Ability Poor M8 OT- IP Objective Assessments Start: 01/10/20 17:02 Freq: Status: Active Protocol: Document 01/10/20 15:06 [facility] (Rec: 01/10/20 17:27 [facility] [id number]) OT Gross Range of Motion Upper Extremity Range of Motion Assessment Bilaterally Impaired OT Strength Upper Extremity Strength Shoulder Left and Right 2-/5 Elbow Left and right 4-/5 Hand left and right 4-/5 OT-Muscle Tone Assessment Muscle Tone WNL Yes OT Sensation Assessment Edema Edema Absent M9 OT- IP Assessment and Plan Start: 01/10/20 17:02 Freq: Status: Active Protocol: Document 01/10/20 15:06 [facility] (Rec: 01/10/20 17:27 [facility] [id number]) OT Summary Assessment and Plan Potential Rehabilitation Potential Good Analytic Complexity at Evaluation Low Summary OT Impairments Range of Motion,Balance, Coordination,Functional Cognition,Functional Mobility, Grooming,Dressing,Toileting, Bathing,Toilet Transfers, Shower Transfers,Activity Tolerance Progress Towards Goals Slow Progress due to Medical Issues,Slow Progress due to Activity Tolerance Assessment Summary Pt low complexity and main barriers are steps, decreased activity tolerance and now needing more assist for Adl and functional mobility needs. Pt now realizes that prior lack of insight to deficits is hindering her recovery and now pt seems more willing to try to participate in her care . Pt with OT now able to come up with goals of trying to be more proactive in her care. Pt will benefit from skilled rehab prior to going home. Goals Grooming Goal Independent Dressing Goal Standby Assistance Toileting Goal Minimal Assistance Bathing Goal Minimal Assistance Toilet Transfer Goal Standby Assistance Shower Transfer Goal Contact Guard Assistance Patient/Caregiver Education Goal Caregiver Independent Assisting Patient OT-Other Goals Grooming goal while standing. Days to Meet Goals 7 Frequency of Treatment Frequency Of Treatment Once a Day Treatment Plan OT Treatment Plan ADL Training,Functional Cognition Training,Functional Mobility,Patient/Family Education,Discharge Planning Other Treatment Recommendations and Next LB dressing with adaptive Treatment Focus equipment. Discharge Recommendations OT Discharge Recommendations SNF Rehab Home Equipment Needs Defer to SNF. Transportation Needs at Discharge Private Vehicle
--- NOTE | 2020-01-10 16:27 | DIET.PN ---
Dietary Progress Note Assessment:Ms. Prince is a 64-year-old female with a history coronary artery disease status post RI and CABG x2 vessels, hypertension, hyperlipidemia, CHF, diabetes mellitus type 2, non-insulin using, with complication of polyneuropathy and chronic kidney disease stage 3, COPD/asthma, iron deficiency anemia, chronic pain, psoriasis, and severe untreated depression who presented to the ED and was readmitted with progressive worsening weakness and incontinence of bowel and bladder. She has chronic problems with her low back but noted progressive weakness especially into the right leg and new and progressive difficulty with her bowel and bladder. She has been having intermittent problems with diarrhea which has significantly worsened as well as intermittent bowel incontinence. She reports changes in appetite and that it comes and goes. She does not follow any particular dietary restrictions and does not know if she takes any diabetes medications, but reports discontinuing metformin r/t kidney disease. Current A1c of 5.7 is controlled through diet. HT: 167.64cm WT: 104.7kg UBW: 112kg (01/03) BMI: 37.3 (obese class III) Labs: cr: 1.8 H eGFR: 28.2 L Gluc: 123, 84, 120 HgbA1c: 5.7 MNA: 11 Deonte: 16 Nutrition Diagnosis: Altered nutrition-related laboratory values r/t kidney/endocrine dysfunction aeb increased Cr, decreased eGFR, increased plasma glucose, estimated intake of foods high in overall CHO, fat, sodium. Interventions: 1. Provided MNT on CKD w/ diabetes. Provided 1800 humble meal plan recommending approx 60 g protein, 2,500 mg sodium, 2,500 mg potassium, 1,000 mg phosphorus. 2. Discussed increased fiber intake through low-med potassium f/v. Handouts provided. 3. Discussed low fat meat and meat alternatives with recommended amounts per day. Diet Order: CCD 3 (med) EER: 1800 humble @ 30 humble/kg IBW; Pro 60g @ 1.0g/kg IBW (CKD) Monitoring/Evaluations: weight, PO's, associated labs
--- NOTE | 2020-01-10 16:59 | CM.DPC ---
DCP/continued: Reviewed chart. Spoke with Dr. Pitts this AM. She anticipates that patient will be medically stable tomorrow 01-10-20. [facility] unable to accept because they do not have [facility] contract. Therefore, placed call to [facility]. Spoke with Amanda all clinical faxed. Received return phone call from Amanda at [facility]. She is attempting to obtain authorization. She does anticipate that they can accept once authorization received. She anticipates she will have it by tomorrow 01-11-20. Placed call to [facility] phone# [phone] ext# [phone] updated her on above. She is requesting phone call with final disposition so that she can work on intermediate plan once patient goes to SNF. Met with patient and son/Vignesh explained role and update. Patient and son aware and agreeable for SNF plan at [facility]. P: [facility] when medically stable. Call [facility] in AM re: authorization. Need PASRR completed. CHRISTINA Murray
[2020-01-10] MEDS: AMLODIPINE 5 MG TABLET PO (19:13)
[2020-01-10] MEDS: ALBUTEROL HFA 60 PUFF/8 GM INH INH (21:02)
[2020-01-10] MEDS: ATORVASTATIN 20 MG TABLET PO (21:37)
[2020-01-11] VITALS (10 sets, daily range): BP systolic 140–175; BP diastolic 66–77; PULSE 66–82; RESP 16–18; TEMP 36.4–36.8; O2SAT 93–96
[2020-01-11 05:13] LABS: BUN Creatinine Ratio 22.1 (6-22); Blood Urea Nitrogen 42 mg/dL (7-17); Calcium 9.1 mg/dL (8.4-10.2); Carbon Dioxide 23 mmol/L (22-32); Chloride 106 mmol/L (98-107); Estimated Glomerular Filt Rate 26.4 mL/min (>60); Glucose 168 mg/dL (80-110); HEMOLYSIS < 15 (0-50); Magnesium 1.7 mg/dL (1.6-2.3); Potassium 4.1 mmol/L (3.4-5.1); Sodium 140 mmol/L (137-145)
--- NOTE | 2020-01-11 06:58 | PC.NURSE ---
District Captain Note: 0530: Received pt from Kathie Valencia RN. Pt resting in bed.
[2020-01-11] MEDS: calcitrioL 0.25 MCG CAPSULE 0.5 MCG PO (09:12)
[2020-01-11] MEDS: CYCLOBENZAPRINE 10 MG TABLET PO ×2 (09:12→21:40)
[2020-01-11] MEDS: ESCITALOPRAM 10 MG TABLET PO (09:12)
[2020-01-11] MEDS: ENOXAPARIN 30 MG/0.3 ML SYRINGE SUBCUT (09:12)
[2020-01-11] MEDS: INSULIN ASPART 100 UNIT/ML INSULN PEN SUBCUT ×2 (09:13→13:03)
[2020-01-11] MEDS: GABAPENTIN 300 MG CAPSULE PO ×2 (09:16→21:40)
[2020-01-11] MEDS: AMLODIPINE 5 MG TABLET PO (09:16)
[2020-01-11] MEDS: LOSARTAN 50 MG TABLET PO (09:16)
[2020-01-11] MEDS: SODIUM CHLORIDE 0.9% FLUSH 10 ML IV ×2 (09:19→21:41)
--- NOTE | 2020-01-11 11:09 | PT.IPTN ---
Current Diagnoses Ileus, unspecified (01/08/20) Physical Therapy Treatment Note M2 PT-IP Current Condition Start: 01/09/20 08:26 Freq: NEEDED Status: Active Protocol: Document 01/09/20 16:00 AW (Rec: 01/09/20 16:45 AW [id number]) Physical Therapy Current Condition Current Condition Evaluation Date 01/09/20 Treatment Diagnosis increased RLE weakness, pain; impaired mobility Onset Date 01/08/20 Weight Bearing Status Weight Bearing Status Full Weight Bearing M3 PT-IP Subjective Start: 01/09/20 08:26 Freq: NEEDED Status: Active Protocol: Document 01/11/20 10:46 SP (Rec: 01/11/20 12:13 SP [id number]) Subjective Physical Therapy Visit Type Type Treatment Note Visit Start Time 10:46 Visit Stop Time 11:09 Total Visit Minutes [address] Pitts and nurse in room during tx mobility, encouraging self participation . Physical Therapy Visit Comments Patient Comments Pt reported feeling dizzy earlier but not in supine when arrived. Willing to work with PT. Therapy Pain Assessment Pain When Pain Assessed During Mobility Pain Present Pain Present Pain Reported Location Lower Back Intensity 8 Scale Used Numeric (1 - 10) Pain Behaviors Facial Grimacing,Moaning Pain Management Techniques Distraction,Re-positioning, Timing of Activity with Medications M4 PT-IP Mobility and Gait Start: 01/09/20 08:26 Freq: NEEDED Status: Active Protocol: Document 01/11/20 10:46 SP (Rec: 01/11/20 12:13 SP [id number]) PT-Bed Mobility Assessment Rolling Type of Rolling Roll to Left Level of Assist Moderate Assistance,Maximal Assistance,2 Person Assistance Supine to Sit Supine to Sit Moderate Assistance,Maximum Assistance,2 Person Assistance ,Head of Bed Elevated,Bedrails Scooting Scooting to Edge of Bed Contact Guard Assistance PT-Transfer Assessment Sit to and From Stand Sit to and from Stand Minimal Assistance,1 Person Assistance,Use of Upper Extremities Equipment Transfer Assistive Device Gait Belt,Front Wheeled Walker Orthotic/Prosthetic Devices or Brace: No Transfers Transfer Destination Chair Transfer Technique pt ambulated with FWW Transfer Ability Level of Assist Contact Guard Assistance, Minimal Assistance,1 Person Assistance,Use of Upper Extremities Comments Mobility Comments Pt was reclined in bed when arrived. Completed L log roll requirement of Max of 2 person and use of bed pad for assist , Max A for LE support repositioning to EOB and Max A and cuing fro RUE to push from bed for trunk transition, scoot to EOB CGA until feet on floor. Sit to stand CGA- Min A with good hand placement using FWW for support. PT was able to ambulate with encouragement from MANTEL CRAFTSMAN, nurse, Dr Pitts. Pt required min A with cuing for proper hand placement and FWW fully back prior to sitting wiht slow controlled descent. Pt was seated in chair with alarm donned, call light adn all needs in reach when left. Pt reported posterior thigh pain during all mobility 06/26 but ableto perform tasks asked. Gait Assessment Gait Gait Assistance Required: Contact Guard Assist,Minimum Assistance,1 Person Assist Distance (Feet) 10 Able to Maintain Weight Bearing Status Yes During Gait Assistive Devices Assistive Device Gait Belt,Front Wheeled Walker Gait Deviations General Gait Pattern Antalgic,Decreased Stride Length,Decreased Feet Clearance,Flexed Trunk Factors Limiting Gait Function Factors Limiting Gait Function Decreased Activity Tolerance, Decreased Sensation,Decreased Strength,Difficulty Following Directions,Pain,Poor Balance, Poor Safety Awareness Comments Gait Comments Pt was able to ambulate from bed to room bench approx 5 ft then pivot turn using FWW and back to chair total 10 ft, CGA - Min A with cuing for upright posture and keeping body closer to FWW for safety. Stair Climbing Assessment Comments Stair Climbing Comments not assessed. Pt decreased activity tolerance. PT-Balance Assessment Sitting Balance and Reactions Static Sitting Balance Ability Good Dynamic Sitting Balance Ability Fair Standing Balance and Reactions Static Standing Balance Ability Fair Dynamic Standing Balance Ability Poor Device Used FWW M5 PT-IP Objective Assessments Start: 01/09/20 08:26 Freq: NEEDED Status: Active Protocol: Document 01/09/20 16:00 AW (Rec: 01/09/20 16:45 AW [id number]) Orientation Orientation/Cognition Level of Alertness Alert Orientation Name,Day of Week,Place, Situation Language Function Ability No Deficits Noted Safety Awareness Decreased Safety Awareness Memory Description No Deficits Noted Gross Range of Motion Upper Extremity ROM Assessment Within Functional Limits Lower Extremity ROM Assessment Bilaterally Impaired Strength Upper Extremity Strength Assessment Bilaterally Impaired Lower Extremity Strength Assessment Bilaterally Impaired Hip 3-/5 Knee 3+/5 Ankle 3+/5 Comments Strength Comments Pt has difficulty keeping her arms elevated above shoulder level due to pain and weakness . Coordination Assessment Gross Coordination Gross Coordination WNL Sensation Assessment Sensation Gross Sensation Right LE Impaired,Left LE Impaired Light Touch Impaired Sensation Description Numbness,Tingling Comments Sensation Comments Pt with neuropathy affecting legs distal to knee joint. She reports dulled sensation with distal more affected than proximal M6 PT-IP Treatment Start: 01/09/20 08:26 Freq: NEEDED Status: Active Protocol: Document 01/11/20 10:46 SP (Rec: 01/11/20 12:13 SP [id number]) Physical Therapy Treatment Education Education Provided Precautions,Safety Other Treatments Other Treatment Performed Continued to educate pt on risks of immobility with pt responding positively. M7 PT-IP Assessment and Plan Start: 01/09/20 08:26 Freq: NEEDED Status: Active Protocol: Document 01/11/20 10:46 SP (Rec: 01/11/20 12:13 SP [id number]) PT Summary Assessment and Plan Potential Rehabilitation Potential Good Status of Condition at Evaluation Evolving Summary Impairments Pain,ROM,Strength,Balance, Sensation,Bed Mobility, Transfers,Gait,Activity Tolerance Progress Towards Goals Slow Progress due to Pain,Slow Progress due to Activity Tolerance Assessment Summary Pt required Mod- Max A of 2 persons during log roll and supine>sititng, scoot EOB CGA, sit to stand and gait CGA- Min usign FWW with cuing for proper and placement and body clsoer to FWW. Pt requires encouragement for participation to complete tasks. She shows good effort with therapy although she tends to fatigue quickly. She remains a good candidate for SNF rehab in order to increase her ability to participate in her own care at home if she is to return. Goals Bed Mobility Goal Standby Assistance Transfer Goal Standby Assistance,Front Wheeled Walker Gait Goal Standby Assistance,Front Wheel Walker Gait Distance 100 Other Goals - up/down 13 stairs with bilateral rails CGA Days to Meet Goals 9 Frequency of Treatment Frequency Of Treatment Once a Day Treatment Plan Physical Therapy Treatment Plan Bed Mobility Training,Transfer Training,Gait Training, Therapeutic Exercise,Balance Retraining,Discharge Planning, Hot or Cold Pack,Neuromuscular Re-ed,Manual Therapy Other Recommendations and Next Treatment bed mobility, transfers, gait Focus with FWW and stair assessment when safely able. Recommendations To Nursing Amount of Assist Needed 1 Person Assist Discharge Recommendations PT Discharge Recommendations SNF Rehab Transportation Needs at Discharge Private Vehicle,Wheelchair/ Cabulance
[2020-01-11] MEDS: HYDROCODONE/ACET 5/325 TABLET 1 TAB PO ×2 (13:08→21:47)
--- NOTE | 2020-01-11 13:32 | OT.IP.TRT ---
Current Diagnoses Ileus, unspecified (01/08/20) Occupational Therapy Treatment Note M2 OT-IP Current Condition Start: 01/10/20 17:02 Freq: Status: Active Protocol: Document 01/10/20 15:06 [facility] (Rec: 01/10/20 17:27 [facility] [id number]) Occupational Therapy Current Condition Current Condition Evaluation Date 01/10/20 Treatment Diagnosis Chronic progressive weakness due to spinal stenosis, decreased mobility Diagnosis Onset Date 01/08/20 Post Operative Precautions Other Precautions Follow log rolling due to spinal stenosis. Weight Bearing Status Weight Bearing Status Weight Bear as Tolerated M3 OT- IP Subjective and Pain Start: 01/10/20 17:02 Freq: Status: Active Protocol: Document 01/11/20 13:16 [facility] (Rec: 01/11/20 13:32 [facility] [id number]) OT- Subjective Occupational Therapy Visit Type Type Treatment Note Visit Start Time 12:35 Visit Stop Time 12:44 Total Visit Minutes 9 Occupational Therapy Visit Comments Patient Comments Pt not wanting to get up right now, but open to talking about her goals and what to expect in rehab. Pt feeling tired due to still having diarrhea. Patient/Caregiver Goals Pt wanting to be able to walk. OT Pain Assessment Pain When Pain Assessed At Rest Pain Present Pain Present Denied Pain M M6 OT- IP Functional Cognition Start: 01/10/20 17:02 Freq: Status: Active Protocol: Document 01/11/20 13:16 [facility] (Rec: 01/11/20 13:32 [facility] [id number]) Cognitive Factors Limiting Selfcare Function Cognitive Ability Level of Alertness Alert Patient Orientation Name,Place,Situation Attention Span Ability Capable of Focused Attention, Capable of Sustained Attention Ability to Follow Commands Able to Follow One Step Commands Memory Description Short Term Impaired Problem Solving Ability Unable to Identify Errors, Needs Assist to Identify Solutions Cognitive Comments Cognitive Assessment Comments Pt appears down today and open to talking about rehab goals and what to expect. Pt really wanting to be able to walk. Pt realizes will always have pain from arthritis and trying to cope with it daily. M7 OT- IP Mobility and Balance Start: 01/10/20 17:02 Freq: Status: Active Protocol: Document 01/10/20 15:06 [facility] (Rec: 01/10/20 17:27 [facility] [id number]) OT- Bed Mobility Assessment Rolling Type of Rolling Roll to Left Level of Assistance Moderate Assistance Supine to Sit Supine to Sit Assist Moderate Assistance,1 Person Assistance Sit to Supine Sit to Supine Assist Moderate Assistance,1 Person Assistance OT- Balance Assessment Sitting Balance and Reactions Static Sitting Balance Ability Good Dynamic Sitting Balance Ability Fair Standing Balance and Reactions Static Standing Balance Ability Poor Dynamic Standing Balance Ability Poor M8 OT- IP Objective Assessments Start: 01/10/20 17:02 Freq: Status: Active Protocol: Document 01/10/20 15:06 [facility] (Rec: 01/10/20 17:27 [facility] [id number]) OT Gross Range of Motion Upper Extremity Range of Motion Assessment Bilaterally Impaired OT Strength Upper Extremity Strength Shoulder Left and Right 2-/5 Elbow Left and right 4-/5 Hand left and right 4-/5 OT-Muscle Tone Assessment Muscle Tone WNL Yes OT Sensation Assessment Edema Edema Absent M9 OT- IP Assessment and Plan Start: 01/10/20 17:02 Freq: Status: Active Protocol: Document 01/11/20 13:16 [facility] (Rec: 01/11/20 13:32 [facility] [id number]) OT Summary Assessment and Plan Potential Rehabilitation Potential Good Analytic Complexity at Evaluation Low Summary OT Impairments Range of Motion,Balance, Coordination,Functional Cognition,Functional Mobility, Grooming,Dressing,Toileting, Bathing,Toilet Transfers, Shower Transfers,Activity Tolerance Progress Towards Goals Slow Progress due to Medical Issues Assessment Summary Pt needing encouragement and now more motivated to go to rehab to get better especially to be able to walk better. Pt looking to be discharged to skilled rehab today. Goals Grooming Goal Independent Dressing Goal Standby Assistance Toileting Goal Minimal Assistance Bathing Goal Minimal Assistance Toilet Transfer Goal Standby Assistance Shower Transfer Goal Contact Guard Assistance Patient/Caregiver Education Goal Caregiver Independent Assisting Patient OT-Other Goals Grooming goal while standing. Days to Meet Goals 6 Frequency of Treatment Frequency Of Treatment Once a Day Treatment Plan OT Treatment Plan ADL Training,Functional Cognition Training,Functional Mobility,Patient/Family Education,Discharge Planning Other Treatment Recommendations and Next LB dressing with adaptive Treatment Focus equipment. Discharge Recommendations OT Discharge Recommendations SNF Rehab Home Equipment Needs Defer to SNF. Transportation Needs at Discharge Private Vehicle
--- NOTE | 2020-01-11 14:53 | PC.NURSE ---
PT WITH DISCHARGE ORDERS TO TRANSFER TO [facility] THIS DATE- HER VSS AFEBRILE ALERT/ORIENTED AND SOMEWHAT IRRITABLE. SALINE LOCK REMAINS UNTIL D/C -- mostly continent of both bowel/bladder but brief in place-hydrocodone given for c/o chronic back pain
--- NOTE | 2020-01-11 19:01 | P.PN_ITS ---
Subjective Subjective Date Patient Seen: 01/11/20 Interval history: Elizabeth Prince is a 64-year-old female with past medical history significant for coronary artery disease status post NV and CABG x2 vessels, hypertension, hyperlipidemia, CHF, diabetes mellitus type 2, non-insulin using, with complication of polyneuropathy and chronic kidney disease stage 3 COPD/asthma, iron deficiency anemia, chronic pain (OA, sciatica), psoriasis, and severe untreated depression who presented to the ED and was readmitted with progressive worsening weakness and incontinence of bowel and bladder. The patient is resting in bed comfortably. The patient remains apathetic. She endorses mild dizziness this morning. She has no other complaints and denies headache, chest pain, shortness of breath, abdominal pain, nausea, vomiting, fever, chills, dysuria, diarrhea or constipation. She denies back pain today. She is voiding and eliminating without difficulty. Continue physical and occupational therapy. Exam Vital Signs (past 8 hours): - 01/11/20 12:00 01/11/20 12:48 01/11/20 15:43 Temperature 98.2 F 97.7 F Pulse Rate 66 78 Respiratory Rate 18 16 Blood Pressure 152/66 H 148/67 H Pulse Oximetry 94 95 96 Oxygen Delivery Method Room Air Oxygen Flow Rate 0 Narrative Exam Narrative: General: Older female sitting in bedside chair and in no acute distress, appears older than stated age and chronically ill, well-developed, well- nourished, mildly irritable but mood seems improved and otherwise appropriately interactive. HEENT: Normocephalic, atraumatic. External ears without defect. Pupils equal, round, and reactive to light. Anicteric sclerae, moist conjunctivae, and no lid lag. Neck: Supple with full range of motion. No lymphadenopathy or thyromegaly. Cardiovascular: Regular rate and rhythm without murmurs, rubs, or gallops appreciated. Pulmonary: Clear to auscultation bilaterally without crackles, wheezes, or rhonchi. Normal respiratory effort with no use of accessory muscles. Abdomen: Soft, bowel sounds present, nontender, nondistended. No hepatosplenomegaly or masses appreciated. Extremities: No clubbing, cyanosis, or edema. Skin: Elizabeth intertrigo in submammary folds, inguinal folds and perineum. Neurological: Cranial nerves grossly intact. Generalized weakness R>L with +4/5 MS and no focal neurological deficits. Psychiatric: Severely depressed mood with slight irritability and apathy but improved mood and affect. Alert and oriented to person, place, and time. Objective Labs Result Diagrams: 01/09/20 04:46 01/11/20 04:50 Labs: Laboratory Results - last 24 hr 01/11/20 04:50 Sodium 140 Potassium 4.1 Chloride 106 Carbon Dioxide 23 BUN 42 H Creatinine 1.90 H Estimated GFR 26.4 L BUN/Creatinine Ratio 22.1 H Glucose 168 H Calcium 9.1 Magnesium 1.7 Assessment & Plan Assessment & Plan narrative: Elizabeth Prince is a 64-year-old female with past medical history significant for coronary artery disease status post NV and CABG x2 vessels, hypertension, hyperlipidemia, CHF, diabetes mellitus type 2, non-insulin using, with complication of polyneuropathy and chronic kidney disease stage 3 COPD/asthma, iron deficiency anemia, chronic pain (OA, sciatica), psoriasis, and severe untreated depression who presented to the ED and was readmitted with progressive worsening weakness and incontinence of bowel and bladder. 1. Chronic progressive weakness, secondary to spinal stenosis with right lower extremity radiculopathy, resulting in multiple falls with failure to thrive, present on admission. Active. -Patient has had multiple recurrent falls due to chronic progressive generalized weakness. She returns to the hospital for reported inability to lift right leg with radicular pain and weakness of left leg and intermittent incontinence of bowel and bladder. She denies saddle anesthesia. Patient's exam findings and MRI are not consistent with cauda equina syndrome and patient does not appear any weaker than previous hospitalization. -MR lumbar spine demonstrated multiple level broad-based posterior disc bulge and mild facet arthropathy unchanged. Mild central canal narrowing and severe effacement of both lateral recesses although right slightly greater than left. Associated compression of the descending L5 nerve roots. This is slightly progressed on the right since the prior study. No change on the left. Moderate to severe bilateral foraminal narrowing with mild compression of the exiting nerve roots -Patient has scheduled epidural steroid injection on 01/10/[address] Ferrer. Consulted orthopedic surgery, Dr. Pack, who tried to arrange for LA while in hospital, however, patient is to discharge today and will need to be rescheduled outpatient. Orthopedic surgery ruled out cauda equina syndrome. 2. Small bowel ileus, secondary to acute on chronic constipation, present on admission. Resolved. -Patient reports recent loose watery stool likely international representative of encoparesis with inability to hold bowel at times. Patient does not have cauda equina syndrome and believes that her bowel incontinence is related to urge, liquid stool and inability to get to bedside commode quickly due to weakness and i nadequate family and divorce legal assistant. -Previous CT abdomen and pelvis with contrast demonstrated possible small and l arge bowel ileus. -Repeat abdominal series demonstrated small bowel ileus. -GI stool PCR negative. -Small-bowel follow-through did not demonstrate specific transition point with normal transit time. Study was also therapeutic as patient has had several bowel movements since. 3. Chronic kidney disease stage 4, present on admission. Stable. -Patient is followed by Nephrology, Dr. Bernardo. -Patient was previously treated pansensitive E. coli UTI with ceftriaxone and nitrofurantoin. -Baseline creatinine is variable appears to be between 1.8-2.2. -Continue to avoid nephrotoxic agents. -Continue to monitor renal function periodically. 4. Elizabeth intertrigo, chronic present on admission. Stable. -Patient has intertrigo of inguinal, intergluteal, and submammary regions. -Patient has received fluconazole previously. Continue nystatin powder as patient is having improvement in rash and ordered Ketoconazole cream to rash daily. 5. 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 Active. -On previous admission the patient's depression, in addition to radicular pain, was thought to be a driving factor to the patient's progressive disability and deconditioning. -Recently started on and will continue escitalopram 10 mg daily. Patient denies suicidal or homicidal ideation. Although early to evaluate response to SSRI patient's mood seems improved. Continue to monitor patient closely for suicidal and/or homicidal ideations. May consider titrating up to 20 mg daily for full efficacy per PCP. -Highly recommend referral to outpatient cognitive behavioral therapy per PCP. 6. Diabetes mellitus type 2, non-insulin using, chronic, present on admission. Stable. -Hemoglobin A1c 5.7% indicative excellent glycemic control and now in the range of prediabetes. -Patient no longer taking metformin due to advanced CKD and glipizide was discontinued during her last hospitalization due to high risk of hypoglycemia. -Continue diet control of diabetes with carbohydrate consistent/heart healthy diet. 7. Coronary artery disease, chronic, present on admission. Stable. -Continue home atorvastatin 20 mg daily at bedtime. Clopidogrel has been held for scheduled epidural steroid injection plan for 01/10/2020 for which patient did not make due to admission and now will need to be rescheduled. Consider restarting clopidogrel if LA is weeks out. 8. Hypertension, chronic, present on admission. Stable. -Continue losartan 50 daily and added amlodipine 5 mg daily for better blood pressure control as SBP was 150-170's. Code status: Full Code. Patient denies having a health directive. She designates her son, Vignesh, as a surrogate decision maker. VTE prophylaxis: SCDs, Lovenox Disposition: Patient was to be discharged to [facility] for continued rehabilitation today pending insurance approval. Insurance approval was confirmed but unable to reach penitentiary facility.
[2020-01-11] MEDS: ATORVASTATIN 20 MG TABLET PO (21:40)
[2020-01-12] VITALS: BP 115/58; PULSE 72; RESP 16; TEMP 35.9; O2SAT 90
[2020-01-12 04:40] VITALS: O2SAT 98
--- NOTE | 2020-01-12 07:20 | PC.NURSE ---
Resaw Operator Note. Pt slept well during the shift. Pt states she has no urge to void. Pt had discomfort with attempt to get OOB to bedside commode and returned to bed. Pt bladder scanned for 188 ml. Pt placed on bedpan with no void. Pt states she doesn't have the urge to void. Pt declined offer of analgesia early in the shift.
[2020-01-12 08:00] VITALS: BP 126/58; PULSE 57; RESP 22; TEMP 36.5; O2SAT 98
[2020-01-12] MEDS: HYDROCODONE/ACET 5/325 TABLET 1 TAB PO (08:04)
[2020-01-12] MEDS: GABAPENTIN 300 MG CAPSULE PO (08:04)
[2020-01-12] MEDS: LOSARTAN 50 MG TABLET PO (08:04)
[2020-01-12] MEDS: CYCLOBENZAPRINE 10 MG TABLET PO (08:04)
[2020-01-12] MEDS: AMLODIPINE 5 MG TABLET PO (08:04)
[2020-01-12] MEDS: calcitrioL 0.25 MCG CAPSULE 0.5 MCG PO (08:05)
[2020-01-12] MEDS: ESCITALOPRAM 10 MG TABLET PO (08:05)
[2020-01-12] MEDS: ENOXAPARIN 30 MG/0.3 ML SYRINGE SUBCUT (08:11)
[2020-01-12 08:27] VITALS: O2SAT 98
--- NOTE | 2020-01-12 08:49 | PC.NURSE ---
Patient refusing to sit up and requesting to eat breakfast lying down. Patient informed by both myself and by nurse that it is not safe to eat lying down due to risk of choking. Medication given by nurse for back pain. Will offer help sitting up to eat after some time. AMANDA
--- NOTE | 2020-01-12 10:11 | PM.DS.1 ---
History of Present Illness History of Present Illness Date Patient Seen: 01/09/20 Chief complaint: Recent Dx with UTI,today diff standing/loss bowel Narrative: Written by Gael MORAN: Mrs. Elizabeth Prince is a 64-year-old female with past medical history significant for coronary artery disease status post AK and CABG x2 vessels, hypertension, hyperlipidemia, CHF, diabetes mellitus type 2, non-insulin using, with complication of polyneuropathy and chronic kidney disease stage 3 COPD/asthma, iron deficiency anemia, chronic pain (OA, sciatica), psoriasis, and severe untreated depression who presented to the ED with progressive weakness and incontinence of bowel and bladder. The patient was discharged on 01/06/2020 following a 3 days hospitalization for evaluation similar presentation with weakness, diarrhea and incontinence. The patient reports waking this morning that she was wet in front and brown in back and has loss control of bowel and bladder. She reports the stool has a foul smell and is loose and watery. The patient has been treated for UTI and discharged on nitrofurantoin. She reports worsening generalized weakness, pain and now has inability to lift her right leg and states that she is unable to walk. On discharge the patient refused long term facility and was able to walk 13 steps. She lives in an upstairs apartment and has nursing assistance at home and her son helps or on weekends. She denies complaints of fevers or chills and has no headaches or dizziness. She reports no sore throat or nasal congestion. She denies shortness of breath cough or wheezing and has no chest pain or palpitations. She denies complaints of abdominal pain or cramping, nausea or vomiting. She reports diarrhea stools multiple times daily and urinary incontinence as above. She denies blood in the urine or the stool. Upon arrival to the ER the patient has a temperature of 98.6?, heart rate of 90, blood pressure 128/86, respirations 16 saturating 99% on room air. Lumbar MRI is obtained related to also control of bowel and bladder which finds no significant change from the previous imaging obtained on 02/26/2019. On laboratory analysis the patient has a white count of 5.0, hemoglobin of 12.1 hematocrit of 36.7 and platelets of 264. Her electrolytes are all within normal limits and she has a BUN of 37 and a creatinine of 1.8 with baseline of 1.8-2.0. Nonfasting glucose is 123 she has lactic acid of 0.8. Troponin is minimally elevated at 0.035 and has a total CK of 44. A urinalysis was not obtained in previously had pansensitive E coli greater than 100,000 colony-forming units. The patient is admitted to the hospital for failure to thrive, recurrent falls and worsening right leg weakness. Discharge Providers Provider Date of admission: 01/08/20 17:10 Discharge Date: 01/12/20 Primary care physician: Bar Null MD Consults: 01/08/20 19:07 Consult to Dietitian, Adult Routine Comment: Reason For Exam: weight loss 01/08/20 19:57 Consult to Dietitian, Adult Routine Comment: Reason For Exam: Protracted diarrhea R/O C diff, CKD stage 3, obese 01/08/20 19:58 Consult to Discharge Planning Routine Comment: Progressive weakness, Previously refused SNF Consult to Occupational Therapy Evaluate & Treat Comment: Progressive weakness, L4-5 radiculopathy Physician Instructions: Evaluate and treat Consult to Physical Therapy Evaluate & Treat Comment: Physician Instructions: Evaluate and Treat 01/08/20 19:59 Consult to Physician Routine Comment: Consulting Provider: Ferny Ferrer Reason for consultation: Progressive right leg weakness, L4-5 disc disease Has provider been notified: No 01/09/20 08:35 Consult to CERTIFIED REAL ESTATE APPRAISER - Materials Buyer Routine Comment: CERTIFIED REAL ESTATE APPRAISER Consult: [facility] Need Behavioral Health Assess APS/CPS Crisis Referral 01/10/20 14:00 Consult to Orthopedic Surgery Routine Comment: Consulting Provider: Linda Pack Reason for consultation: Progressive right leg weakness, L4-5 disc disease, LA Has provider been notified: Yes Discharge provider: Kiki Pitts DO Summary Hospital Course Hospital Course: Elizabeth Prince is a 64-year-old female with past medical history significant for coronary artery disease status post AK and CABG x2 vessels, hypertension, hyperlipidemia, CHF, diabetes mellitus type 2, non-insulin using, with complication of polyneuropathy and chronic kidney disease stage 3 COPD/asthma, iron deficiency anemia, chronic pain (OA, sciatica), psoriasis, and severe untreated depression who presented to the ED and was readmitted with progressive worsening weakness and incontinence of bowel and bladder. 1. Chronic progressive weakness, secondary to spinal stenosis with right lower extremity radiculopathy, resulting in multiple falls with failure to thrive, present on admission. Stable. -Patient has had multiple recurrent falls due to chronic progressive generalized weakness. She returns to the hospital for reported inability to lift right leg with radicular pain and weakness of left leg and intermittent incontinence of bowel and bladder. She denies saddle anesthesia. Patient's exam findings and MRI are not consistent with cauda equina syndrome and patient does not appear any weaker than previous hospitalization. -MR lumbar spine demonstrated multiple level broad-based posterior disc bulge and mild facet arthropathy unchanged. Mild central canal narrowing and severe effacement of both lateral recesses although right slightly greater than left. Associated compression of the descending L5 nerve roots. This is slightly progressed on the right since the prior study. No change on the left. Moderate to severe bilateral foraminal narrowing with mild compression of the exiting nerve roots -Patient was scheduled for epidural steroid injection on 01/10/[address] Ferrer for which she missed due to admission and were not able to arrange LA while hospitalized. Consulted Orthopedic surgery, Dr. Pack, who ruled out cauda equina syndrome. -Continued pain control with acetaminophen 650 mg every 6 hours as needed for pain, cyclobenzaprine 10 mg every 8 hours as needed, and hydrocodone 5-325 mg every 6 hours as needed for moderate to severe breakthrough pain. Continued bowel regimen with MiraLax 17 g daily and Colace 100 mg twice daily. 2. Small bowel ileus, secondary to acute on chronic constipation, present on admission. Resolved. -Patient reports recent loose watery stool likely apprenticeship training representative of encoparesis with inability to hold bowel at times. 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 -Previous CT abdomen and pelvis with contrast demonstrated possible small and large bowel ileus. -Repeat abdominal series demonstrated small bowel ileus. -GI stool PCR negative. -Small-bowel follow-through did not demonstrate specific transition point with normal transit time. Study was also therapeutic as patient has had several bowel movements since. -Continued bowel regimen with MiraLax 17 g daily and Colace 100 mg twice daily. 3. Chronic kidney disease stage 4, present on admission. Stable. -Patient is followed by Nephrology, Dr. Bernardo. -Patient was previously treated pansensitive E. coli UTI with ceftriaxone and nitrofurantoin. -Baseline creatinine is variable appears to be between 1.8-2.2. -Continued to avoid nephrotoxic agents. -Continued to monitor renal function periodically. 4. Elizabeth intertrigo, chronic present on admission. Stable. -Patient has intertrigo of inguinal, intergluteal, and submammary regions. -Patient has received fluconazole previously. Continued nystatin powder 3 times daily and ketoconazole cream to affected areas and patient is having improvement in rash. 5. 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 Active. -On previous admission the patient's depression, in addition to radicular pain, was thought to be a driving factor to the patient's progressive disability and deconditioning. -Recently started on and will continue escitalopram 10 mg daily. Patient denies suicidal or homicidal ideation. Although early to evaluate response to SSRI patient's mood seems improved. Continue to monitor patient closely for suicidal and/or homicidal ideations. May consider titrating up to 20 mg daily for full efficacy per PCP. -Highly recommend referral to outpatient cognitive behavioral therapy per PCP. 6. Diabetes mellitus type 2, non-insulin using, chronic, present on admission. Stable. -Hemoglobin A1c 5.7% indicative excellent glycemic control and now in the range of prediabetes. -Patient no longer taking metformin due to advanced CKD and glipizide was discontinued during her last hospitalization due to high risk of hypoglycemia. -Continued diet control of diabetes with carbohydrate consistent/heart healthy diet. 7. Coronary artery disease, chronic, present on admission. Stable. -Continued home atorvastatin 20 mg daily at bedtime. Clopidogrel was held for scheduled epidural steroid injection plan for 01/10/2020 for which patient did not make due to hospital admission and LA will need to be rescheduled. Recommend restarting clopidogrel if LA is weeks out. 8. Hypertension, chronic, present on admission. Stable. -Continued losartan 50 daily. Exam Vital Signs (past 8 hours): - 01/11/20 04:57 01/11/20 08:05 01/11/20 08:26 Temperature 97.6 F 98.2 F Pulse Rate 67 74 Respiratory Rate 16 17 Blood Pressure 140/67 155/69 H Pulse Oximetry 94 93 95 Oxygen Delivery Method Room Air Oxygen Flow Rate 0 Narrative Exam Narrative: General: Older female sitting in bedside chair and in no acute distress, appears older than stated age and chronically ill, well-developed, well-nourished, mildly irritable but mood seems improved and otherwise appropriately interactive. HEENT: Normocephalic, atraumatic. External ears without defect. Pupils equal, round, and reactive to light. Anicteric sclerae, moist conjunctivae, and no lid lag. Neck: Supple with full range of motion. No lymphadenopathy or thyromegaly. Cardiovascular: Regular rate and rhythm without murmurs, rubs, or gallops appreciated. Pulmonary: Clear to auscultation bilaterally without crackles, wheezes, or rhonchi. Normal respiratory effort with no use of accessory muscles. Abdomen: Soft, bowel sounds present, nontender, nondistended. No hepatosplenomegaly or masses appreciated. Extremities: No clubbing, cyanosis, or edema. Skin: Elizabeth intertrigo in submammary folds, inguinal folds and perineum. Neurological: Cranial nerves grossly intact. Generalized weakness R>L with +4/5 MS and no focal neurological deficits. Psychiatric: Severely depressed mood with irritability and apathy but has improved slightly with SSRI. Alert and oriented to person, place, and time. Objective Labs Result Diagrams: 01/09/20 04:46 01/11/20 04:50 Labs: Laboratory Results - last 24 hr 01/11/20 04:50 Sodium 140 Potassium 4.1 Chloride 106 Carbon Dioxide 23 BUN 42 H Creatinine 1.90 H Estimated GFR 26.4 L BUN/Creatinine Ratio 22.1 H Glucose 168 H Calcium 9.1 Magnesium 1.7 Discharge Plan Discharge Plan Patient Disposition: SNF Transfer to: [facility] Discharge comment: Patient will need appointment rescheduled with Dr. Ferrer for epidural steroid injection and if it is not for several weeks then patient will need to be restarted on her Plavix 75 mg daily. Discharge orders & Medications Prescriptions: New amlodipine [Norvasc] 5 mg Tablet 5 mg PO DAILY Qty: 30 RF: 0 gabapentin 300 mg capsule 300 mg PO BID Qty: 60 RF: 0 polyethylene glycol 3350 [Miralax] 17 gram/dose powder 17 gram PO DAILY Qty: 30 RF: 0 hydrocodone-acetaminophen 5-325 mg Tablet 1 tab PO Q6HR PRN (Reason: Pain, Moderate (4-6)) Qty: 10 RF: 0 ketoconazole 2 % Cream 1 applic topical DAILY Qty: 15 RF: 0 Continued nystatin 100,000 unit/gram ointment 1 applictn TOP TID Qty: 30 RF: 1 (DME) blood-glucose meter Kit See Rx Instructions .ROUTE .MEDSUPPLY Qty: 1 RF: 0 (DME) Blood Glucose Test Strip See Rx Instructions .ROUTE .MEDSUPPLY Qty: 100 RF: 3 (DME) lancets [Fingerstix Lancets] Misc See Rx Instructions .ROUTE .MEDSUPPLY Qty: 100 RF: 3 losartan 50 mg tablet 50 mg PO DAILY Qty: 90 RF: 1 atorvastatin 20 mg tablet 20 mg PO BEDTIME Qty: 90 RF: 1 albuterol sulfate [Ventolin HFA] 90 mcg/actuation HFA aerosol inhaler 2 puff INHALATION Q6H PRN (Reason: shortness of breath or wheezing) Qty: 18 RF: 11 calcitriol 0.5 mcg capsule 0.5 mcg PO DAILY RF: 0 cyclobenzaprine 10 mg Tablet 10 mg PO Q8HR PRN (Reason: Spasms) 7 Days Qty: 15 RF: 0 docusate sodium [DOK] 100 mg Capsule 100 mg PO BID 15 Days Qty: 30 RF: 0 escitalopram oxalate 10 mg tablet 10 mg PO DAILY 30 Days Qty: 30 RF: 0 senna 8.6 mg capsule 8.6 mg PO BEDTIME 30 Days Qty: 30 RF: 0 Discontinued acetaminophen [Acetaminophen Extra Strength] 500 mg Tablet 1,000 mg PO QID RF: 0 nitrofurantoin macrocrystal 100 mg capsule 100 mg PO BID 5 Days Qty: 10 RF: 0 Follow up/Referrals: Bar Null MD [Primary Care Provider] - Diet/Activity/Treatments Diet: Diet as Tolerated, Carb-consistent/Diabetic, Low-fat, Low-sodium and Low-cholesterol Activity: Activity as tolerated with forward wheeled walker and physical and occupational therapy [facility] Rehab type: Physical therapy and Occupational therapy Discharge Data Primary Care Provider: Bar Null
--- NOTE | 2020-01-12 10:55 | PT.IPTN ---
Current Diagnoses Ileus, unspecified (01/08/20) Physical Therapy Treatment Note M2 PT-IP Current Condition Start: 01/09/20 08:26 Freq: NEEDED Status: Active Protocol: Document 01/09/20 16:00 AW (Rec: 01/09/20 16:45 AW [id number]) Physical Therapy Current Condition Current Condition Evaluation Date 01/09/20 Treatment Diagnosis increased RLE weakness, pain; impaired mobility Onset Date 01/08/20 Weight Bearing Status Weight Bearing Status Full Weight Bearing M3 PT-IP Subjective Start: 01/09/20 08:26 Freq: NEEDED Status: Active Protocol: Document 01/12/20 10:43 [facility] (Rec: 01/12/20 10:55 [facility] [email or web address]) Subjective Physical Therapy Visit Type Type Treatment Note Visit Start Time 10:10 Visit Stop Time 10:30 Total Visit Minutes 20 Notes Pt has not ate yet this am as she did not wish to sit up in bed but she agrees to PT this am to sit up in the bed side chair to eat Physical Therapy Visit Comments Patient Comments pt reports pain is 9/10 she is in supine and has not yet had breakfast. She is willing to work with PT to transfer to chair to eat Therapy Pain Assessment Pain When Pain Assessed At Rest Pain Present Pain Present Pain Reported Location Lower Back Intensity 9 Scale Used Numeric (1 - 10) Pain Behaviors Facial Grimacing,Moaning Pain Management Techniques Distraction,Re-positioning, Timing of Activity with Medications M4 PT-IP Mobility and Gait Start: 01/09/20 08:26 Freq: NEEDED Status: Active Protocol: Document 01/12/20 10:43 [facility] (Rec: 01/12/20 10:55 [facility] [id number]) PT-Bed Mobility Assessment Rolling Type of Rolling Roll to Left Level of Assist Moderate Assistance,1 Person Assistance Supine to Sit Supine to Sit Moderate Assistance,1 Person Assistance Scooting Scooting to Edge of Bed Contact Guard Assistance PT-Transfer Assessment Sit to and From Stand Sit to and from Stand Minimal Assistance,1 Person Assistance,Use of Upper Extremities Equipment Transfer Assistive Device Gait Belt,Front Wheeled Walker Orthotic/Prosthetic Devices or Brace: No Transfers Transfer Destination Chair Transfer Technique pt ambulated with FWW Transfer Ability Level of Assist Contact Guard Assistance, Minimal Assistance,1 Person Assistance Gait Assessment Gait Gait Assistance Required: Contact Guard Assist,Minimum Assistance,1 Person Assist Distance (Feet) 4 Able to Maintain Weight Bearing Status Yes During Gait Assistive Devices Assistive Device Gait Belt,Front Wheeled Walker Gait Deviations General Gait Pattern Antalgic,Decreased Stride Length,Decreased Feet Clearance,Flexed Trunk Factors Limiting Gait Function Factors Limiting Gait Function Decreased Activity Tolerance, Decreased Sensation,Decreased Strength,Difficulty Following Directions,Pain,Poor Balance, Poor Safety Awareness Comments Gait Comments pt sat up at the edge of bed for a few minutes and then was ready to transfer to the bedside chair. She ambulated with FWW and CGA M5 PT-IP Objective Assessments Start: 01/09/20 08:26 Freq: NEEDED Status: Active Protocol: Document 01/09/20 16:00 AW (Rec: 01/09/20 16:45 AW [id number]) Orientation Orientation/Cognition Level of Alertness Alert Orientation Name,Day of Week,Place, Situation Language Function Ability No Deficits Noted Safety Awareness Decreased Safety Awareness Memory Description No Deficits Noted Gross Range of Motion Upper Extremity ROM Assessment Within Functional Limits Lower Extremity ROM Assessment Bilaterally Impaired Strength Upper Extremity Strength Assessment Bilaterally Impaired Lower Extremity Strength Assessment Bilaterally Impaired Hip 3-/5 Knee 3+/5 Ankle 3+/5 Comments Strength Comments Pt has difficulty keeping her arms elevated above shoulder level due to pain and weakness . Coordination Assessment Gross Coordination Gross Coordination WNL Sensation Assessment Sensation Gross Sensation Right LE Impaired,Left LE Impaired Light Touch Impaired Sensation Description Numbness,Tingling Comments Sensation Comments Pt with neuropathy affecting legs distal to knee joint. She reports dulled sensation with distal more affected than proximal M6 PT-IP Treatment Start: 01/09/20 08:26 Freq: NEEDED Status: Active Protocol: Document 01/12/20 10:43 [facility] (Rec: 01/12/20 10:55 [facility] [email or web address]) Physical Therapy Treatment Education Education Provided Precautions,Safety Other Treatments Other Treatment Performed educated pt on the importance of mobility and her goal of returning home after rehab M7 PT-IP Assessment and Plan Start: 01/09/20 08:26 Freq: NEEDED Status: Active Protocol: Document 01/12/20 10:43 [facility] (Rec: 01/12/20 10:55 [facility] [email or web address]) PT Summary Assessment and Plan Potential Rehabilitation Potential Good Status of Condition at Evaluation Evolving Summary Impairments Pain,ROM,Strength,Balance, Sensation,Bed Mobility, Transfers,Gait,Activity Tolerance Progress Towards Goals Slow Progress due to Pain,Slow Progress due to Activity Tolerance Assessment Summary pt demonstrated mod A for bed mobility today and Min assist sit-stand, CGA for ambulation. It took a bit to motivate her to work with PT but she did alot of the work once she got going. She will be transfered today to [facility] Goals Bed Mobility Goal Standby Assistance Transfer Goal Standby Assistance,Front Wheeled Walker Gait Goal Standby Assistance,Front Wheel Walker Gait Distance 100 Other Goals - up/down 13 stairs with bilateral rails CGA Days to Meet Goals 9 Frequency of Treatment Frequency Of Treatment Discharge Recommendations To Nursing Amount of Assist Needed 1 Person Assist Discharge Recommendations PT Discharge Recommendations SNF Rehab Transportation Needs at Discharge Private Vehicle,Wheelchair/ Cabulance
--- NOTE | 2020-01-12 11:09 | CM.DPC ---
DCP continued: EMR reviewed: CM/RN spoke with [facility] yesterday in the morning and was told patient was accepted and that they had insurance approval. When D/C orders were placed and patient was ready to D/C Amanda with [facility] stated they did not have insurance authorization. At 3PM [facility] called (patients insurance) and gave authorization code. CM/RN attempted to call [employer] [facility]x and left voice messages attempting to get transport set up for patient to go to SNF yesterday. When CM/RN left last night no call or message back from [employer]. This morning [facility] visit called at 7am and left voicemail that they had recieved insurance authorization and that they would accept patient. [facility] transport was set up for 10:45am and CM/RN sent PASRR, DC orders, and updated med list to [facility]. Kathy Pack RN
== END 2020-01-12 11:10 | DRG 389 ==
LOC: ED 17:00 → ICU 01-09 09:38 → AC 01-17 10:43
PROVIDERS: Internal Medicine; Nurse Practitioner Adult Health; Admitting Provider Internal Medicine; Emergency Provider Emergency Medicine; PCP Student in an Organized Health Care Education/Training Program; Referring Provider Emergency Medicine; Visit Provider Internal Medicine
DX: K56.7 Ileus, unspecified (principal); N18.4 Chronic kidney disease, stage 4 (severe); F32.2 Major depressive disorder, single episode, severe without psychotic features; I12.9 Hypertensive chronic kidney disease with stage 1 through stage 4 chronic kidney disease, or unspecified chronic kidney disease; R53.1 Weakness; M48.062 Spinal stenosis, lumbar region with neurogenic claudication; R19.7 Diarrhea, unspecified; B37.2 Candidiasis of skin and nail; R29.6 Repeated falls; F17.290 Nicotine dependence, other tobacco product, uncomplicated; E78.5 Hyperlipidemia, unspecified; F32.9 Major depressive disorder, single episode, unspecified; I25.10 Atherosclerotic heart disease of native coronary artery without angina pectoris; Z95.1 Presence of aortocoronary bypass graft
CPT/HCPCS: 36415; 72149; 74019; 74248; 74250; 80048; 80053; 81001; 82550; 82962; 83036; 83605; 83735; 84484; 85025; 87086; 87507; 87797; 94640; 96374; 97116; 97129; 97161; 97165; 97530; 97535; 99284; G0378; J1644; J1650; J2060

== ENCOUNTER → 2020-11-22 13:29 | Outpatient (ROUT) | payer MEDICARE, MEDICAID, SELFPAY ==
[2020-01-08 18:50] VITALS: BMI 37.1
[2020-11-22 14:14] LABS: BUN Creatinine Ratio 15.4 (6-22); Blood Urea Nitrogen 28 mg/dL (7-17); Calcium 9.5 mg/dL (8.4-10.2); Carbon Dioxide 29 mmol/L (22-32); Chloride 105 mmol/L (98-107); Estimated Glomerular Filt Rate 27.7 mL/min (>60); Glucose 113 mg/dL (80-110); HEMOLYSIS < 15 (0-50); Potassium 3.9 mmol/L (3.4-5.1); Sodium 137 mmol/L (137-145)
== END ==
PROVIDERS: PCP Student in an Organized Health Care Education/Training Program; Visit Provider Student in an Organized Health Care Education/Training Program
DX: N18.30 Chronic kidney disease, stage 3 unspecified (principal)
CPT/HCPCS: 80048

== ENCOUNTER → 2020-11-27 11:54 | Outpatient (ROUT) | payer MEDICARE, MEDICAID, SELFPAY ==
[2020-01-08 18:50] VITALS: BMI 37.1
[2020-11-27 12:05] LABS: Hemoglobin 11.1 g/dL (12.0-16.0)
[2020-11-27 12:25] LABS: HEMOLYSIS < 15 (0-50); Iron 37 ug/dL (37-170)
[2020-11-27 12:26] LABS: Blood Urea Nitrogen 27 mg/dL (7-17); Calcium 8.7 mg/dL (8.4-10.2); Carbon Dioxide 22 mmol/L (22-32); Chloride 108 mmol/L (98-107); Estimated Glomerular Filt Rate 28.1 mL/min (>60); Glucose 148 mg/dL (80-110); HEMOLYSIS < 15 (0-50); Potassium 3.5 mmol/L (3.4-5.1); Sodium 137 mmol/L (137-145)
[2020-11-27 12:36] LABS: Percent Iron Saturation 15 % (15-50); Total Iron Binding Capacity 248 ug/dL (265-497); Transferrin 183 mg/dL (206-381)
[2020-11-27 13:02] LABS: Ferritin 168 ng/mL (11-264)
[2020-11-28 07:10] LABS: Parathyroid Hormone Int 58 pg/mL (15-65)
== END ==
PROVIDERS: PCP Student in an Organized Health Care Education/Training Program; Visit Provider Student in an Organized Health Care Education/Training Program
DX: N18.9 Chronic kidney disease, unspecified (principal)
CPT/HCPCS: 80048; 82728; 83540; 83550; 83970; 85014; 85018

== ENCOUNTER 2021-03-26 15:45 | Inpatient (IN) | payer MEDICARE, MEDICAID, SELFPAY ==
[2021-02-05 13:56] VITALS: BMI 37.1
[2021-03-26 15:41] VITALS: BP 207/91; PULSE 102; RESP 12; TEMP 36.6; O2SAT 93
--- NOTE | 2021-03-26 15:49 | DI.RAD.S_ITS ---
P and ROCEDURE: XR CHEST 1V INDICATIONS: SOB, cough, weak, fatigue TECHNIQUE: One view of the chest was acquired. COMPARISON: [facility], CR, XR CHEST 1V, 01/03/2020, 15:33. FINDINGS: Surgical changes and devices: Sternotomy wires, many of which appear fractured Lungs and pleura: Scattered subsegmental scarring and/or atelectasis. No acute consolidation. No pleural effusions or pneumothorax. Mediastinum: Mediastinal contours appear normal. Heart size is normal. Bones and chest wall: No suspicious bony lesions. Overlying soft tissues appear unremarkable. IMPRESSION: No acute disease. Dictated by: Tejinder Ferguson M.D. on 03/26/2021 at 16:23 Approved by: Tejinder Ferguson M.D. on 03/26/2021 at 16:23
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
[2021-03-26] MEDS: FUROSEMIDE 40 MG/4 ML VIAL IV (16:23)
[2021-03-26 16:28] LABS: Add Manual Diff / Slide Review NO; Basophils Absolute Auto 0 /uL (0-100); Basophils Percent Auto 0.4 % (0-2); Eosinophils Absolute Auto 100 /uL (0-450); Eosinophils Percent Auto 2.2 % (2-4); Hematocrit 32.6 % (36-46); Hemoglobin 10.9 g/dL (12.0-16.0); Lymphocytes Absolute Auto 900 /uL (1100-4500); Lymphocytes Percent Auto 13.7 % (25-40); Mean Corpuscular HGB Conc 33.5 % (30-36); Mean Corpuscular Hemoglobin 29.3 PG (26-34); Mean Corpuscular Volume 87.7 fL (80-100); Monocytes Absolute Auto 400 /uL (0-900); Monocytes Percent Auto 6.5 % (3-14); Neutrophils Absolute Auto 4900 /uL (1500-7000); Neutrophils Percent Auto 77.2 % (50-75); Platelet Count 216 X10^3/uL (150-400); Red Blood Cell Count 3.72 X10^6/uL (4.0-5.2); Red Cell Distribution Width 18.3 % (11.6-14.8); White Blood Cell Count 6.4 X10^3/uL (4.5-11.0)
[2021-03-26 16:46] LABS: Alanine Aminotransferase 16 IU/L (<35); Albumin 3.7 g/dL (3.5-5.0); Albumin Globulin Ratio 1.4 (1.0-2.8); Alkaline Phosphatase 79 U/L (38-126); Aspartate Aminotransferase 22 IU/L (14-36); BUN Creatinine Ratio 15.1 (6-22); Bilirubin Total 0.3 mg/dL (0.2-1.3); Blood Urea Nitrogen 36 mg/dL (7-17); Calcium 8.5 mg/dL (8.4-10.2); Carbon Dioxide 23 mmol/L (22-32); Chloride 108 mmol/L (98-107); Creatine Kinase 54 U/L (30-135); Estimated Glomerular Filt Rate 20.2 mL/min (>60); Globulin 2.6 g/dL (1.7-4.1); Glucose 281 mg/dL (80-110); HEMOLYSIS < 15 (0-50); Potassium 3.5 mmol/L (3.4-5.1); Sodium 141 mmol/L (137-145); Total Protein 6.3 g/dL (6.3-8.2)
[2021-03-26 16:55] LABS: NT-proBNP (BNP-Adult 18+) 14900 pg/mL (<125)
[2021-03-26 17:00] LABS: Troponin I 0.023 ng/mL (0.01-0.034)
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
[2021-03-26 17:26] LABS: COVID19 - ADMIT (NP swab/PCR) Negative (Negative)
[2021-03-26 17:46] VITALS: BP 195/91; PULSE 100; O2SAT 95
[2021-03-26 19:50] VITALS: BP 161/74; PULSE 88; RESP 19; TEMP 37.2; O2SAT 98
[2021-03-26 20:01] VITALS: BMI 47.7
[2021-03-26] MEDS: HEPARIN 5,000 UNIT/ML VIAL 5000 UNIT SUBCUT (21:05)
--- NOTE | 2021-03-26 21:10 | PM.HP.1 ---
History of Present Illness History of Present Illness Date Patient Seen: 03/26/21 Time Patient Seen: 15:10 Chief complaint: SOB Narrative: Ms. Prince is a 66W PMH COPD, CHF, CKD stage 4, CAD s/p CABG< DM type 2, HTN, HL who comes in with progressively worsening shortness of breath for weeks. She says it has been worsened today. Also has lower extremity pain and edema. She has been prescribed torsemide but takes less than a third of the dose, to sometimes none of the medication each day. She does not want to urinate frequently, and has a bathroom that is upstairs. She also has a cough, with minimal sputum production. She has had no chest pain. She has worsening shortness of breath while she lies flat. In the ER, vitals notable for a mild tachycardia and blood pressure in the 200s. Labs notable for WBC 6.4, creatinine 2.39, trop 0.023, BNP 14.9 thousand. Chest xray did not show any acute process. She was given lasix and admitted for further treatment. Patient History Medical History Anemia (1996) Arthritis (Unknown) Asthma (1979) Cardiac arrhythmia (1991) Cataracts, bilateral (1996) Chickenpox Chickenpox CKD (chronic kidney disease) (1979) COPD (chronic obstructive pulmonary disease) (1979) Coronary artery disease Coronary artery disease (1991) Depression (1979) Diabetes (1988) Diabetic polyneuropathy Essential hypertension Gastroesophageal reflux disease GERD (gastroesophageal reflux disease) (1978) Hyperlipemia (Unknown) Hyperlipidemia Hypertension (1991) Iron deficiency Lower back pain (12/2015) Lower extremity edema Measles Myocardial infarction (1991) Neuropathy (Unknown) Osteoarthritis Psoriasis (2014) Skin cancer (2007) Type 2 diabetes mellitus Surgical History Hx of heart surgery (1991) Hx of surgical procedure (03/2018) Status post cholecystectomy (1984) Status post coronary artery bypass graft (06/2012) Status post hysterectomy (1985) Status post tubal ligation Family & Social History Family History Father No problems noted. Mother Cancer Hypertension Brother Cancer Brother Diabetes mellitus Brother Stroke Sister Diabetes mellitus Heart disease Mental health problem Grandmother Cancer Social History: household members caregiver,children Prior Living Arrangements Apartment/Condo lives independently Yes caregiver/support person Yes Safety & Behavioral: Feels Safe in Current Yes Environment Been Physically Hurt or No Threatened By a Person Suicidal Ideation Description None Tobacco & Substance use: Tobacco type cigarettes,smokeless tobacco Smoking Status Former smoker alcohol intake former alcohol intake frequency other Substance Use Type does not use Meds Home Medications and Allergies Home Medications Medication Instructions Recorded Confirmed Type calcitriol 0.5 mcg capsule 0.5 mcg PO DAILY #90 cap 10/30/20 03/26/21 Rx escitalopram oxalate 5 mg tablet 5 mg PO DAILY #90 tab 10/30/20 03/26/21 Rx amlodipine 5 mg tablet 5 mg PO DAILY #90 tab 10/31/20 03/26/21 Rx gabapentin 300 mg capsule 300 mg PO BID #60 cap 11/18/20 03/26/21 Rx torsemide 20 mg tablet 20 mg PO TID #90 tab 11/18/20 03/26/21 Rx albuterol sulfate 90 mcg/actuation 2 puff INHALATION Q6H PRN #18 gram 02/05/21 03/26/21 Rx aerosol inhaler atorvastatin 20 mg tablet 20 mg PO BEDTIME #90 tab 02/09/21 03/26/21 Rx hydrocodone 5 mg-acetaminophen 325 1 tab PO TID PRN #90 tab 03/22/21 03/26/21 Rx mg tablet clonidine HCl 03/26/21 History nystatin 1 applic TOPICAL DAILY 03/26/21 03/26/21 History Allergies Allergy/AdvReac Type Severity Reaction Status Date / Time lisinopril Allergy Severe ANGIOEDEMA Verified 03/26/21 16:03 aspirin Allergy Mild HIVES Verified 03/26/21 16:03 simvastatin Allergy Mild RASH Verified 03/26/21 16:03 Review of Systems Review of Systems Narrative: 14 systems reviewed and negative aside from what is noted in HPI Exam Vital Signs (past 8 hours): - 03/26/21 15:41 03/26/21 17:46 03/26/21 19:50 Temperature 97.8 F 98.9 F Pulse Rate 102 H 100 H 88 Respiratory Rate 12 19 Blood Pressure 207/91 H 195/91 H 161/74 H Pulse Oximetry 93 95 98 Oxygen Delivery Method Room Air Oxygen Flow Rate 0 Narrative Exam Narrative: GEN: chronically ill appearing, morbidly obese, mild respiratory distress HEENT: PERRL, wet mucous membranes NECK: JVD difficult to appreciate due to body habitus, trachea midline CV: tachycardic, no murmurs PULM: wheezes bilaterally, poor air movement ABD: soft, obese, nontender, nondistended, no organomegaly, normal bowel sounds EXT: warm and well perfused with 2+ pitting edema NEURO: AAOx3, moving all extremities SKIN: no rashes noted PSYCH: irritable, cooperative Objective Labs Result Diagrams: 03/26/21 16:02 03/26/21 16:02 Labs: Laboratory Results - last 24 hr 03/26/21 03/26/21 03/26/21 16:02 16:02 16:02 WBC 6.4 RBC 3.72 L Hgb 10.9 L Hct 32.6 L MCV 87.7 MCH 29.3 MCHC 33.5 RDW 18.3 H Plt Count 216 Neut % (Auto) 77.2 H Lymph % (Auto) 13.7 L [place] % (Auto) 6.5 Eos % (Auto) 2.2 Baso % (Auto) 0.4 Neut # (Auto) 4900 Lymph # (Auto) 900 L [place] # (Auto) 400 Eos # (Auto) 100 Baso # (Auto) 0 Sodium 141 Potassium 3.5 Chloride 108 H Carbon Dioxide 23 BUN 36 H Creatinine 2.39 H Estimated GFR 20.2 L BUN/Creatinine Ratio 15.1 Glucose 281 H Calcium 8.5 Total Bilirubin 0.3 AST 22 ALT 16 Alkaline Phosphatase 79 Total Creatine Kinase 54 CK-MB (CK-2) TNP CK-MB (CK-2) Rel Index TNP Troponin I 0.023 NT-Pro-B Natriuret Pep 47922 H Total Protein 6.3 Albumin 3.7 Globulin 2.6 Albumin/Globulin Ratio 1.4 SARS-CoV-2 (PCR) Negative Assessment & Plan Assessment & Plan narrative: Ms. Prince is a 66W with PMH COPD, CHF, DM, morbid obesity who comes in with respiratory distress found to have acute CHF exacerbation. 1. Acute CHF exacerbation -EF unclear, ECHO ordered for further evaluation -likely secondary to poor dietary compliance and medication non-adherence -did get lasix in ER and will need to continue this, perhaps at higher doses -ordered for 60 IV BID of lasix -ordered low salt diet, monitor urine output 2. COPD exacerbation, acute -cxray appears clear, patient still wheezing -ordered for nebs, azithro, and prednisone 3. THEO of CKD stage 4 -creatinine baseline appears to be near 1.8, on admission was 2.39 -possibly secondary to volume overload -will attempt diuresis as above -patient has had discussions about dialysis in the past and said she would rather 3. Type 2 diabetes -not on insulin -will order low dose sliding scale 4. Anemia, mild -appears near baseline -no evidence of bleeding -continue to monitor 5. HTN, chronic -continue amlodipine 6. HL, chronic -continue statin DVT ppx: heparin sc IVF: none Diet: Low salt, diabetic Code: Full, proxy is tres Bautista VTE Deep Vein Thrombosis/Pulmonary Embolism Present on Admission: No MIPS - Admit I confirm the patient?s Advance Care Plan is present, Code status is documented, Surrogate decision maker is in patient?s record [If Yes, STOP here]: Yes
--- NOTE | 2021-03-26 21:11 | DI.ECHO.S_ITS ---
[facility] +---------+ : : [address] : : : : [id number] : : : : Phone: [phone]+ Echocardiogram Report + + :Name: SIRENA LARA Study Date: 03/27/2021 Height: 61 in : :[facility] ReadingLocation: Weight: 252 lb : : Gender: Female BSA: 2.1 m2 : :: 1955 Age: 66 yrs BP: 163/74 mmHg: :Reason For Study: CHF : :Ordering Physician: : :ASHU MATA Performed By: Sergio Olsen : :Referring: ASHU MATA : + + Interpretation Summary Patient refused to complete the study. It is a limited study. No complete apical or subcostal views. The left ventricle is moderately dilated. Left ventricular ejection fraction is estimated to be 30 +/- 5%. There has been no significant change in LVEF since the previous exam. The right ventricle is not well visualized. RV function i appears to be moderately reduced. Procedure: A two-dimensional transthoracic echocardiogram with color flow and Doppler was performed. The study quality was technically difficult. Comparison is made with the echocardiogram of 03/24/2020. The patient was in normal sinus rhythm during the exam. Left Ventricle: The left ventricle is moderately dilated. There is normal left ventricular wall thickness. The left ventricle is not well visualized. A false chord is noted (normal variant). Left ventricular systolic function is severely reduced. Left ventricular ejection fraction is estimated to be 30 +/- 5%. There has been no significant change since the previous exam. Akinetic mid to distal septum and apex. All the foley were not well seen. Right Ventricle: The right ventricle is not well visualized. RV function i appears to be moderately reduced. Atria: The left atrium is severely dilated. The left atrium has mildly increased in size since the prior echo exam. Right atrium not well visualized. Mitral Valve: There is mild mitral annular calcification. There is trace mitral regurgitation. Aortic Valve: The aortic valve is grossly normal. The aortic valve opens well. No aortic regurgitation is present. Tricuspid Valve: The tricuspid valve is not well visualized, but is grossly normal. There is trace tricuspid regurgitation. Pulmonic Valve: The pulmonic valve is not well visualized. Great Vessels: The inferior vena cava was not visualized. Pericardium/ Pleura There is no pericardial effusion. There is no pleural effusion. MMode/2D Measurements & Calculations LVIDd: 6.0 cm LVIDs: 5.1 cm FS: 15.4 % IVSd: 1.0 cm LVPWd: 0.90 cm LV lam. diameter/BSA (cm/m^2): 2.9 LV sys. diameter/BSA (cm/m^2): 2.4 Reading Physician:01:37 PM
[2021-03-26] MEDS: predniSONE 20 MG TABLET 40 MG PO (21:45)
[2021-03-26] MEDS: HYDROCODONE/ACET 5/325 TABLET 1 TAB PO (21:45)
[2021-03-26] MEDS: AZITHROMYCIN 500 MG in DEXTROSE 5% IN WATER 250 ML IV (22:46)
--- NOTE | 2021-03-26 22:46 | PC.NURSE ---
1929 - Pt arrived in room 207, alert and oriented, able to make needs know. She is unable to completely confirm all meds. external list has some prescriptions not refilled since 2019. Pt suggests that her son might know what meds she is taking. He will be in this evening. Ambulated into the bathroom, denies history of falls, however reports hx of weak knees with activity. Oriented to room and routine, safety and call light use. Bed alarm on. 2244 - Pt son arrived, He reports inability to confirm meds stating that she takes about 7. Heike scott. Primary RN aware. meds will need to be confirmed with Dr. Null's office in the am.
[2021-03-26 23:00] VITALS: O2SAT 95
[2021-03-26 23:15] VITALS: BP 164/85; PULSE 83; RESP 18; TEMP 36.5; O2SAT 95
[2021-03-26 23:32] VITALS: PULSE 82; RESP 18; O2SAT 91
[2021-03-26] MEDS: ALBUTEROL/IPRATROPIUM 3 ML AMPUL INH (23:32)
[2021-03-27] VITALS (12 sets, daily range): BP systolic 132–163; BP diastolic 71–84; PULSE 79–100; RESP 16–20; TEMP 36.3–37.3; O2SAT 92–100
[2021-03-27] MEDS: ALBUTEROL/IPRATROPIUM 3 ML AMPUL INH ×4 (06:04→19:14)
[2021-03-27] MEDS: HYDROCODONE/ACET 5/325 TABLET 1 TAB PO ×3 (07:03→21:46)
[2021-03-27 09:51] LABS: Add Manual Diff / Slide Review NO; Basophils Absolute Auto 0 /uL (0-100); Basophils Percent Auto 0.1 % (0-2); Eosinophils Absolute Auto 0 /uL (0-450); Eosinophils Percent Auto 0.1 % (2-4); Hematocrit 31.9 % (36-46); Hemoglobin 10.7 g/dL (12.0-16.0); Lymphocytes Absolute Auto 500 /uL (1100-4500); Lymphocytes Percent Auto 6.8 % (25-40); Mean Corpuscular HGB Conc 33.7 % (30-36); Mean Corpuscular Hemoglobin 29.5 PG (26-34); Mean Corpuscular Volume 87.7 fL (80-100); Monocytes Absolute Auto 200 /uL (0-900); Monocytes Percent Auto 3.3 % (3-14); Neutrophils Absolute Auto 6700 /uL (1500-7000); Neutrophils Percent Auto 89.7 % (50-75); Platelet Count 217 X10^3/uL (150-400); Red Blood Cell Count 3.64 X10^6/uL (4.0-5.2); Red Cell Distribution Width 17.6 % (11.6-14.8); White Blood Cell Count 7.4 X10^3/uL (4.5-11.0)
[2021-03-27] MEDS: predniSONE 20 MG TABLET 40 MG PO (10:02)
[2021-03-27] MEDS: FUROSEMIDE 100 MG/10 ML VIAL 60 MG IV ×2 (10:02→21:45)
[2021-03-27] MEDS: ESCITALOPRAM 10 MG TABLET 5 MG PO (10:03)
[2021-03-27] MEDS: AMLODIPINE 5 MG TABLET PO (10:03)
[2021-03-27] MEDS: GABAPENTIN 300 MG CAPSULE PO ×2 (10:04→21:33)
[2021-03-27] MEDS: HEPARIN 5,000 UNIT/ML VIAL 5000 UNIT SUBCUT ×2 (10:04→21:33)
[2021-03-27 10:26] LABS: BUN Creatinine Ratio 15.4 (6-22); Blood Urea Nitrogen 38 mg/dL (7-17); Calcium 8.7 mg/dL (8.4-10.2); Carbon Dioxide 21 mmol/L (22-32); Chloride 103 mmol/L (98-107); Estimated Glomerular Filt Rate 19.4 mL/min (>60); Glucose 297 mg/dL (80-110); HEMOLYSIS < 15 (0-50); Magnesium 1.5 mg/dL (1.6-2.3); Potassium 3.8 mmol/L (3.4-5.1); Sodium 137 mmol/L (137-145)
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
--- NOTE | 2021-03-27 15:20 | PT.IIE ---
Surgical History (Last Reviewed 03/26/21 @ 21:16 by Casey Moore MD) Hx of heart surgery (1991) Hx of surgical procedure (03/2018) Status post cholecystectomy (1984) Status post coronary artery bypass graft (06/2012) Status post hysterectomy (1985) Status post tubal ligation Medical History (Last Reviewed 03/26/21 @ 21:16 by Casey Moore MD) Anemia (1996) Arthritis (Unknown) Asthma (1979) Cardiac arrhythmia (1991) Cataracts, bilateral (1996) Chickenpox Chickenpox CKD (chronic kidney disease) (1979) COPD (chronic obstructive pulmonary disease) (1979) Coronary artery disease Coronary artery disease (1991) Depression (1979) Diabetes (1988) Diabetic polyneuropathy Essential hypertension Gastroesophageal reflux disease GERD (gastroesophageal reflux disease) (1978) Hyperlipemia (Unknown) Hyperlipidemia Hypertension (1991) Iron deficiency Lower back pain (12/2015) Lower extremity edema Measles Myocardial infarction (1991) Neuropathy (Unknown) Osteoarthritis Psoriasis (2014) Skin cancer (2007) Type 2 diabetes mellitus Physical Therapy Inpatient Evaluation/Re-Eval M1 PT/OT-IP Prior Functional Status Start: 03/27/21 16:55 Freq: NEEDED Status: Active Protocol: Document 03/27/21 03:20 AB (Rec: 03/27/21 17:11 AB [id number]) Medical Review Prior Functional Status Medical History Reviewed Yes Communication able to make needs known Mobility and Gait pt stated that she was able to ambulate at home using a FWW but has difficulty going up/ down stairs. her caregiver assists her and her son. Pt stated that she is not going back home and will go to a facility Social History Household Members caregiver,children Living Arrangements Apartment/Condo Number of Floors (Floors) Two Floors Number of Stairs To Enter/Railing? has 13 steps with B rails to get to bedroom and toilet level. Home Environment Standard Height Toilet,Walk in Shower Home Equipment Front Wheel Walker,Shower Seat without Backrest,Hand Held Shower,Grab Bars In Shower Additional Social History Comment pt stated that she is not going home and will go to a facility M2 PT-IP Current Condition Start: 03/27/21 16:55 Freq: NEEDED Status: Active Protocol: Document 03/27/21 03:20 AB (Rec: 03/27/21 17:11 AB [id number]) Physical Therapy Current Condition Current Condition Evaluation Date 03/27/21 Treatment Diagnosis CHF; THEO; difficulty in walking Onset Date 03/26/21 M3 PT-IP Subjective Start: 03/27/21 16:55 Freq: NEEDED Status: Active Protocol: Document 03/27/21 03:20 AB (Rec: 03/27/21 17:11 AB [id number]) Subjective Physical Therapy Visit Type Type Initial Evaluation Visit Start Time 15:20 Visit Stop Time 15:55 Total Visit Minutes 35 Number of MANAGER STATISTICS Visits 0 Physical Therapy Visit Comments Patient Comments initially refusing PT but agreed to ambulate some in bed but refused to do bed mobility Therapy Pain Assessment Pain Present Pain Present Pain Reported Location Lower Back Description Chronic Pain Management Techniques Distraction M4 PT-IP Mobility and Gait Start: 03/27/21 16:55 Freq: NEEDED Status: Active Protocol: Document 03/27/21 03:20 AB (Rec: 03/27/21 17:11 AB [id number]) PT-Transfer Assessment Sit to and From Stand Sit to and from Stand Standby Assistance,1 Person Assistance,Use of Upper Extremities Equipment Transfer Assistive Device Gait Belt,Front Wheeled Walker Orthotic/Prosthetic Devices or Brace: No Transfers Transfer Destination Bedside Commode Transfer Technique Stand Step Pivot Transfer Ability Level of Assist Contact Guard Assistance,1 Person Assistance,Use of Upper Extremities Comments Mobility Comments pt sitting on the chair. requires encouragement to participate but refused to do bed mobility. completed sit to stand SBA and ambulated in room CGA to min A ~ 20 ft using FWW. pt rested on the chair. pt requested to use the toilet but does not want to ambulate to the toilet and wants to use the bedside commode. positioned bed side commode. pt completed step transfer using fWW chair <> bedside commode CGA. was able to maintain standing CGA while assisted with hygiene care and brief management. positioned back on the chair. call light and table placed within reach. Gait Assessment Gait Gait Assistance Required: Contact Guard Assist,Minimum Assistance Distance (Feet) 20 Able to Maintain Weight Bearing Status Yes During Gait Assistive Devices Assistive Device Gait Belt,Front Wheeled Walker Orthotic/Prosthetic Devices or Brace: No Gait Deviations General Gait Pattern Decreased Stride Length, Decreased Feet Clearance,Step- to Gait Factors Limiting Gait Function Factors Limiting Gait Function Decreased Activity Tolerance, Decreased Strength,Limited Range of Motion,Pain,Poor Balance,Poor Safety Awareness Comments Gait Comments pls refer to mobility section for details PT-Balance Assessment Sitting Balance and Reactions Static Sitting Balance Ability Good Dynamic Sitting Balance Ability Good Standing Balance and Reactions Static Standing Balance Ability Fair Dynamic Standing Balance Ability Fair Device Used FWW M5 PT-IP Objective Assessments Start: 03/27/21 16:55 Freq: NEEDED Status: Active Protocol: Document 03/27/21 03:20 AB (Rec: 03/27/21 17:11 AB [id number]) Orientation Orientation/Cognition Level of Alertness Alert Orientation Name,Place,Situation Language Function Ability No Deficits Noted Safety Awareness Decreased Safety Awareness Gross Range of Motion Lower Extremity ROM Assessment Within Functional Limits Strength Lower Extremity Strength Hip 3+/5 Knee 3+/5 Comments Strength Comments BLE edema noted Coordination Assessment Gross Coordination Gross Coordination WNL Muscle Tone Muscle Tone WNL Yes M6 PT-IP Treatment Start: 03/27/21 16:55 Freq: NEEDED Status: Active Protocol: Document 03/27/21 03:20 AB (Rec: 03/27/21 17:11 AB [id number]) Physical Therapy Treatment Education Education Provided Safety M7 PT-IP Assessment and Plan Start: 03/27/21 16:55 Freq: NEEDED Status: Active Protocol: Document 03/27/21 03:20 AB (Rec: 03/27/21 17:11 AB [id number]) PT Summary Assessment and Plan Potential Rehabilitation Potential Good Status of Condition at Evaluation Stable Summary Impairments Pain,ROM,Strength,Balance, Coordination,Sensation,Bed Mobility,Transfers,Gait, Activity Tolerance Assessment Summary pt requiring CGA to min A with ambulation using FWW and has decrease activity tolerance. pt stated that she is not going back home and will d/c to a facility. Pt will need SNF rehab at this time to improve mobility independence. Goals Bed Mobility Goal Independent Transfer Goal Independent,Front Wheeled Walker Gait Goal Independent,Front Wheel Walker Gait Distance 100 Days to Meet Goals 5 Frequency of Treatment Frequency Of Treatment Once a Day Treatment Plan Physical Therapy Treatment Plan Bed Mobility Training,Transfer Training,Gait Training, Therapeutic Exercise,Balance Retraining,Post Op Education, Discharge Planning,Hot or Cold Pack,Neuromuscular Re-ed, Coordination Retraining,Manual Therapy Recommendations To Nursing Amount of Assist Needed 1 Person Assist Discharge Recommendations PT Discharge Recommendations SNF Rehab Transportation Needs at Discharge Wheelchair/Cabulance
--- NOTE | 2021-03-27 15:52 | DIET.PN ---
Dietary Progress Note Assessment: 66y F c pmhx of COPD, CHF, CKD4, CAD, DM2, HTN, HLD, and depression admitted for SOB referred to nutrition for assessed at high risk. HT: 154.9cm WT: 114.5kg UBW: 110kg BMI: 47.7 Labs: BG 281, 297 H, BNP 14596 H MNA: 12 Deonte: 16 at risk for skin breakdown Pt has been living in apartment c her adult son but has been essentially bedbound in upstairs level as she cannot mobilize to go downstairs. Pt is not compliant with her diuretic therapy secondary to immobility. Pt reports her son having difficulty caring for her when the school child care attendant is not present and he gets upset if she has accidents resulting in soiled bedding/clothing. Pt presents with SOB and 2+ pitting LE edema. Pt does not follow specific dietary patterns for health conditions, she simply eats until she is full. Pt and son have combined EBT benefits of $200/mo. Son does all shopping, mostly at [employer]. Pt has not cooked for herself x2y and son is not a cook. Pts meals mainly come from childcare teacher. Last home meal yesterday was 2 pancakes, 2 fried eggs, 4 strips paulino, milk, and juice. Pt reports not salting at the table but unwilling to switch to reduced/no sodium canned vegetables. Pt reports not being able to afford fresh meat secondary to food insecurity. Pt reports she hates PT/OT so does not participate. Nutrition Diagnosis: 1. morbid obesity r/t undesirable food choices and physical inactivity aeb BMI 47.7, pt unable to cook for self and is mainly bed bound, pt has chronic back px limiting mobility, pt endorses not following specific diet for health conditions, food insecurity on EBT. 2. excessive intake mineral (sodium) r/t nutrition related knowledge deficit aeb pt reports not adding salt at the table but eats full sodium canned vegetables, boxed and packaged pasta products, commercial breads, pt admitted for CHF exacerbation c BNP 39838. Interventions: 1. Educated pt that salting at the table only accounts for 10% sodium in diet. Introduced pt to the AHA's salty six food categories. Strategized c pt ways to reduce sodium in the diet. Pt resistant to teaching, however likely moving into facility which will follow heart healthy diet reccs. 2. Educated pt on the role of physical deconditioning on sarcopenic obesity. Because pt is mostly bedbound with BMI >45, her metabolism has slowed setting her up for further deconditioning and weight gain. This further exacerbates her lower extremity pitting edema and difficulty c independent toileting in setting of diuretic use. Pt receptive to this realization and inquired ways to move her body while seated. Introduced pt to wrist and ankle pumps/circles. Pt called her son to bring in her [employer] projects as this encourages some core control and rapid, repeated arm motions. Diet Order: low sodium EER: 2g sodium restriction, 1800 kcals
--- NOTE | 2021-03-27 16:06 | OT.IPNOTE ---
Attempted to see pt for OT eval and pt states just got up and therefore pt agreed to do OT eval tomorrow morning. Pt did say that she is adamant that she will not go home as she no longer is able to do the steps.
--- NOTE | 2021-03-27 17:04 | CM.DANOTE ---
DCP ASSESSMENT: Patient is a defensive 66 year-old female admitted to hospital for acute CHF exacerbation. PCP is Bar Null. Primary payer is Medicare and Medicaid. GANG HEAD SAW OPERATOR consult received for d/c planning. Called and spoke with family service caseworker Mirtha Enciso from [facility]. She confirmed she will complete a telephone interview with client to assess and work on a long-term placement for patient under her Medicaid benefit. Mirtha made aware anticipated placement at [facility] will be .? Encouraged her to continue to work on long-term Medicaid placement plan. GANG HEAD SAW OPERATOR Student met with patient who was alert and sitting in a chair. Educated patient on role of social work in discharge planning. She is requesting to go to [facility] or [facility] for long-term placement and understands she may need to return home at time of D/C with alternate placement explored by [facility]. She agreed she needs an alternative placement, ?I can?t go home.? Patient stated. Patient historically been sedentary at home relying on others for care. Her son Vignehs and a caregiver Jossie who is in the home M-F. Per chart view and patient endorsement she has been declining in ability to complete ADL?s and mobility is impaired. Patient is willing to engage in therapies. Orders placed for occupational and physical therapy per Dr. Moore. April from [facility] confirmed acceptance, PASSR initiated for long term placement.? Patient anticipated to d/c on Friday03-30-21. PLAN: Anticipate D/C to [facility] for rehab placement. CM Team to continue to follow patient closely for D/C planning.? CHRISTINA Murray MSW Student? Discharge Planning/Care Management CM Discharge Assessment Start: 03/27/21 10:27 Freq: Status: Active Protocol: Document 03/27/21 10:27 AL (Rec: 03/27/21 10:31 AL [id number]) Discharge Planning Assessment Assigned Rigging Up Man CHRISTINA Jose Student Contact Information Goyo Lopez Advance Directives? No History Provided By Patient,Medical Record Has Patient been admitted in last 30 No days? Prior Living Arrangements Apartment/Condo Household Members caregiver,children Comment Lives with son. Caregiver Jossie provides care M-F Type of transporation used prior to Relies on Others admit Independent with ADL's No Is patient alert and oriented? Yes Needs Assistance With Bathing,Meal Prep,Toileting, Managing Medications,Home Chores / Shopping Comment Son and caregiver have been providing care Caregiver for Another No DME Already Rented / Owned FWW / Walker Barriers to Discharge Yes Comment Patient will need SNF for therapy and possibly long-term placement and/or increased caregiver services in the home . Discharge Plan [facility] Facility Transportation Arrangement Pending If patient plan is SNF: Has PASSR been No completed? Whiteboard Updated in Patient Room with Yes name and ext. # of Rigging Up Man Review Status In Process
[2021-03-27] MEDS: MAGNESIUM SULFATE 2 GM/50 ML PIGGYBACK IV (17:56)
[2021-03-27] MEDS: ATORVASTATIN 20 MG TABLET PO (21:33)
[2021-03-27] MEDS: METOPROLOL IR 25 MG TABLET 12.5 MG PO (21:33)
[2021-03-27] MEDS: AZITHROMYCIN 500 MG in DEXTROSE 5% IN WATER 250 ML IV (21:41)
[2021-03-28] VITALS (10 sets, daily range): BP systolic 110–141; BP diastolic 65–80; PULSE 61–98; RESP 16–20; TEMP 36.2–36.7; O2SAT 92–99
[2021-03-28] MEDS: ESCITALOPRAM 10 MG TABLET 5 MG PO (09:39)
[2021-03-28] MEDS: METOPROLOL IR 25 MG TABLET 12.5 MG PO ×2 (09:39→21:25)
[2021-03-28] MEDS: GABAPENTIN 300 MG CAPSULE PO (09:39)
[2021-03-28] MEDS: predniSONE 20 MG TABLET 40 MG PO (09:40)
[2021-03-28] MEDS: AMLODIPINE 5 MG TABLET PO (09:40)
[2021-03-28] MEDS: HEPARIN 5,000 UNIT/ML VIAL 5000 UNIT SUBCUT ×2 (09:40→21:24)
[2021-03-28] MEDS: HYDROCODONE/ACET 5/325 TABLET 1 TAB PO ×2 (09:40→21:24)
--- NOTE | 2021-03-28 09:41 | PT.IPTN ---
Current Diagnoses Heart failure, unspecified (03/27/21) Physical Therapy Treatment Note M2 PT-IP Current Condition Start: 03/27/21 16:55 Freq: NEEDED Status: Active Protocol: Document 03/27/21 03:20 AB (Rec: 03/27/21 17:11 AB [id number]) Physical Therapy Current Condition Current Condition Evaluation Date 03/27/21 Treatment Diagnosis CHF; THEO; difficulty in walking Onset Date 03/26/21 M3 PT-IP Subjective Start: 03/27/21 16:55 Freq: NEEDED Status: Active Protocol: Document 03/28/21 09:32 HH (Rec: 03/28/21 09:41 HH [email or web address]) Subjective Physical Therapy Visit Type Type Treatment Note Visit Start Time 09:01 Visit Stop Time 09:15 Total Visit Minutes 14 Notes Per nursning, pt has been refusing taking BP, getting lab work done since last night , Number of CLINICAL APPEALS AUDITOR Visits 0 Physical Therapy Visit Comments Patient Comments I want to use the bathroom M4 PT-IP Mobility and Gait Start: 03/27/21 16:55 Freq: NEEDED Status: Active Protocol: Document 03/28/21 09:32 HH (Rec: 03/28/21 09:41 HH [email or web address]) PT-Transfer Assessment Sit to and From Stand Sit to and from Stand Standby Assistance,1 Person Assistance,Use of Upper Extremities Equipment Transfer Assistive Device Front Wheeled Walker Orthotic/Prosthetic Devices or Brace: No Transfers Transfer Destination Bedside Commode Transfer Technique Stand Step Pivot Transfer Ability Level of Assist Contact Guard Assistance,1 Person Assistance,Use of Upper Extremities Comments Mobility Comments pt sitting on the chair sleeping soundly. Woke her up and pt stated she needed to use BSC. Pt refused to wear socks and gait belt. She then stood up by pushing off from amrests slowly SBA. she then used FWW and amb slowly to BSC which was 5 ft away. Pt then sat down and voided and provided pull up brief. She was able to stood up again and bent down to pull the brief up with UE support on FWW. Pt then amb to sink counter for self care while leaning against the sink for support. Pt did get SOB after 2 mins and she requested to be back on chair. Pt showed poor descent during stand to sit. BP was taken at R forearm 123/ 70. Legs elevated and chair reclined. Call light placed within reach. Gait Assessment Gait Gait Assistance Required: Contact Guard Assist,Minimum Assistance Distance (Feet) 10 Able to Maintain Weight Bearing Status Yes During Gait Assistive Devices Assistive Device Front Wheeled Walker Orthotic/Prosthetic Devices or Brace: No Gait Deviations General Gait Pattern Decreased Stride Length, Decreased Feet Clearance,Step- to Gait Factors Limiting Gait Function Factors Limiting Gait Function Decreased Activity Tolerance, Decreased Strength,Limited Range of Motion,Pain,Poor Balance,Poor Safety Awareness Comments Gait Comments pls refer to mobility section for details PT-Balance Assessment Sitting Balance and Reactions Static Sitting Balance Ability Good Dynamic Sitting Balance Ability Good Standing Balance and Reactions Static Standing Balance Ability Fair Dynamic Standing Balance Ability Fair Device Used FWW M5 PT-IP Objective Assessments Start: 03/27/21 16:55 Freq: NEEDED Status: Active Protocol: Document 03/27/21 03:20 AB (Rec: 03/27/21 17:11 AB [id number]) Orientation Orientation/Cognition Level of Alertness Alert Orientation Name,Place,Situation Language Function Ability No Deficits Noted Safety Awareness Decreased Safety Awareness Gross Range of Motion Lower Extremity ROM Assessment Within Functional Limits Strength Lower Extremity Strength Hip 3+/5 Knee 3+/5 Comments Strength Comments BLE edema noted Coordination Assessment Gross Coordination Gross Coordination WNL Muscle Tone Muscle Tone WNL Yes M6 PT-IP Treatment Start: 03/27/21 16:55 Freq: NEEDED Status: Active Protocol: Document 03/27/21 03:20 AB (Rec: 03/27/21 17:11 AB [id number]) Physical Therapy Treatment Education Education Provided Safety M7 PT-IP Assessment and Plan Start: 03/27/21 16:55 Freq: NEEDED Status: Active Protocol: Document 03/28/21 09:32 HH (Rec: 03/28/21 09:41 HH [email or web address]) PT Summary Assessment and Plan Potential Rehabilitation Potential Good Status of Condition at Evaluation Stable Summary Impairments Pain,ROM,Strength,Balance, Coordination,Sensation,Bed Mobility,Transfers,Gait, Activity Tolerance Progress Towards Goals Slow Progress due to Medical Issues,Slow Progress due to Activity Tolerance,Slow Progress - Other Assessment Summary pt's activity tolerance has been the same and she did use BSC with FWW SBA/CGA. Pt overall is lack of motivation to partcipate anything meaningful and nursing staff is aware of it. DC SNF rehab is still an ideal option for her d/t her limited mobility and ability of self care Goals Bed Mobility Goal Independent Transfer Goal Independent,Front Wheeled Walker Gait Goal Independent,Front Wheel Walker Gait Distance 100 Days to Meet Goals 5 Frequency of Treatment Frequency Of Treatment Once a Day Treatment Plan Physical Therapy Treatment Plan Bed Mobility Training,Transfer Training,Gait Training, Therapeutic Exercise,Balance Retraining,Post Op Education, Discharge Planning,Hot or Cold Pack,Neuromuscular Re-ed, Coordination Retraining,Manual Therapy Recommendations To Nursing Amount of Assist Needed 1 Person Assist Discharge Recommendations PT Discharge Recommendations SNF Rehab Transportation Needs at Discharge Wheelchair/Cabulance
[2021-03-28] MEDS: FUROSEMIDE 100 MG/10 ML VIAL 60 MG IV (09:44)
--- NOTE | 2021-03-28 11:26 | OT.IP.EVAL ---
Current Diagnoses Heart failure, unspecified (03/27/21) Past Medical History (Last Reviewed 03/26/21 @ 21:16 by Casey Moore MD) Anemia (1996) Arthritis (Unknown) Asthma (1979) Cardiac arrhythmia (1991) Cataracts, bilateral (1996) Chickenpox Chickenpox CKD (chronic kidney disease) (1979) COPD (chronic obstructive pulmonary disease) (1979) Coronary artery disease Coronary artery disease (1991) Depression (1979) Diabetes (1988) Diabetic polyneuropathy Essential hypertension Gastroesophageal reflux disease GERD (gastroesophageal reflux disease) (1978) Hyperlipemia (Unknown) Hyperlipidemia Hypertension (1991) Iron deficiency Lower back pain (12/2015) Lower extremity edema Measles Myocardial infarction (1991) Neuropathy (Unknown) Osteoarthritis Psoriasis (2014) Skin cancer (2007) Type 2 diabetes mellitus Surgical History (Last Reviewed 03/26/21 @ 21:16 by Casey Moore MD) Hx of heart surgery (1991) Hx of surgical procedure (03/2018) Status post cholecystectomy (1984) Status post coronary artery bypass graft (06/2012) Status post hysterectomy (1985) Status post tubal ligation Occupational Therapy Inpatient Evaluation/Re-Eval M1 PT/OT-IP Prior Functional Status Start: 03/27/21 16:55 Freq: NEEDED Status: Active Protocol: Document 03/28/21 11:10 [facility] (Rec: 03/28/21 12:05 [facility] [id number]) Medical Review Prior Functional Status Medical History Reviewed Yes Communication able to make needs known Mobility and Gait pt stated that she was able to ambulate at home using a FWW but has difficulty going up/ down stairs. her caregiver assists her and her son. Pt stated that she is not going back home and will go to a facility Activities of Daily Living and IADL's Pt states needing assist with dressing, showering , and IADL needs. Social History Household Members caregiver,children Living Arrangements Apartment/Condo Number of Floors (Floors) Two Floors Number of Stairs To Enter/Railing? has 13 steps with B rails to get to bedroom and toilet level. Home Environment Standard Height Toilet,Walk in Shower Home Equipment Front Wheel Walker,Shower Seat without Backrest,Hand Held Shower,Grab Bars In Shower Additional Social History Comment pt stated that she is not going home and will go to a facility M2 OT-IP Current Condition Start: 03/28/21 11:47 Freq: Status: Active Protocol: Document 03/28/21 11:10 [facility] (Rec: 03/28/21 12:05 [facility] [id number]) Occupational Therapy Current Condition Current Condition Evaluation Date 03/28/21 Treatment Diagnosis CHF and COPD exacerbation Diagnosis Onset Date 03/27/21 M3 OT- IP Subjective and Pain Start: 03/28/21 11:47 Freq: Status: Active Protocol: Document 03/28/21 11:10 [facility] (Rec: 03/28/21 12:05 [facility] [id number]) OT- Subjective Occupational Therapy Visit Type Type Initial Evaluation Visit Start Time 11:10 Visit Stop Time 11:26 Total Visit Minutes 16 Occupational Therapy Visit Comments Patient Comments Pt agreed to get up for OT eval. Patient/Caregiver Goals To go to skilled rehab. OT Pain Assessment Pain When Pain Assessed At Rest Pain Present Pain Present Denied Pain M4 OT- IP ADL's Start: 03/28/21 11:47 Freq: Status: Active Protocol: Document 03/28/21 11:10 [facility] (Rec: 03/28/21 12:05 [facility] [id number]) OT [id number] Comments OT Self-Feeding Comments Not at meal time, no concerns anticipated. OT ADL-Grooming General Evaluation Grooming Ability Standby Assistance Areas Needing Assistance Retrieving/Set-up of Grooming Items OT ADL-Dressing Comments OT Dressing Comments Pt's legs are very swollen and will need assist for LB dressing needs. Offered to have pt change out into to a larger gown, pt states may do so after a shower later. OT ADL-Toileting Comments OT Toileting Comments Pt states not having to go. Pt admits to having urinary urgency and suggested to try to go to the toilet every 2-3 hours. Pt not open to the idea at this time. OT ADL-Bathing Comments OT Bathing Comments Pt states to shower later. M5 OT- IP IADL's Start: 03/28/21 11:47 Freq: Status: Active Protocol: Document 03/28/21 11:10 [facility] (Rec: 03/28/21 12:05 [facility] [id number]) OT-Instrumental Activities of Daily Living Home Safety Awareness Awareness of Need for Assistance at Home Good Awareness Medication Management Medication Management Caregiver Administers Meal Preparation Meal Preparation Caregiver Provides Assist Technology Intern Technology Intern Caregiver Provides Assist M6 OT- IP Functional Cognition Start: 03/28/21 11:47 Freq: Status: Active Protocol: Document 03/28/21 11:10 [facility] (Rec: 03/28/21 12:05 [facility] [id number]) Cognitive Factors Limiting Selfcare Function Cognitive Ability Level of Alertness Alert Patient Orientation Name,Place,Situation Attention Span Ability Capable of Focused Attention, Capable of Sustained Attention Ability to Follow Commands Able to Follow One Step Commands Memory Description Short Term Impaired Cognitive Comments Cognitive Assessment Comments Pt needing occasional cues for FWW safety. Pt does have fair awareness that the FWW at time gets away from her and to keep it close. Pt states she is motivated and willing to go to skilled rehab. OT- Vision and Hearing OT- Hearing Assessment OT- Hearing Assessment WFL OT- Vision Assessment Visual Acuity Glasses For Reading M7 OT- IP Mobility and Balance Start: 03/28/21 11:47 Freq: Status: Active Protocol: Document 03/28/21 11:10 [facility] (Rec: 03/28/21 12:05 [facility] [id number]) OT-Transfer Assessment Sit to and From Stand Sit to and from Stand Standby Assistance Transfers Transfer Ability Standby Assistance,Contact Guard Assistance Technique Transfer Destination Chair Transfer Technique Stand Step Pivot Devices Transfer Assistive Devices Gait Belt,Front Wheeled Walker Comments Mobility Comments Pt not wanting to wear socks- her feet are too swollen to put socks on at this time. Pt not wanting to wear a gait belt during her mobility during Ot eval. Pt needing CGA as at times the FWW gets out too far in front of her. OT- Balance Assessment Sitting Balance and Reactions Static Sitting Balance Ability Good Dynamic Sitting Balance Ability Fair Standing Balance and Reactions Static Standing Balance Ability Fair M8 OT- IP Objective Assessments Start: 03/28/21 11:47 Freq: Status: Active Protocol: Document 03/28/21 11:10 [facility] (Rec: 03/28/21 12:05 [facility] [id number]) OT Gross Range of Motion Upper Extremity Range of Motion Assessment Bilaterally Impaired OT Strength Comments Strength Comments Bilateral shoulders 2-/5, from elbow to distal 4/5. OT-Muscle Tone Assessment Muscle Tone WNL Yes M9 OT- IP Assessment and Plan Start: 03/28/21 11:47 Freq: Status: Active Protocol: Document 03/28/21 11:10 [facility] (Rec: 03/28/21 12:05 [facility] [id number]) OT Summary Assessment and Plan Potential Rehabilitation Potential Fair Analytic Complexity at Evaluation Low Summary OT Impairments Balance,Functional Cognition, Functional Mobility,Dressing, Toileting,Bathing,Toilet Transfers,Shower Transfers, Activity Tolerance Progress Towards Goals Slow Progress due to Medical Issues,Slow Progress due to Activity Tolerance,Slow Progress due to Cognition Assessment Summary Pt low complexity and here due to CHF and COPD exacerbation. Pt prior needing assist for some ADl needs-shower and dressing. Pt would benefit from initial skilled rehab to maximize pt's independence for ADl's, functional mobility and activity tolerance. Goals Grooming Goal Independent Dressing Goal Minimal Assistance Toileting Goal Minimal Assistance Bathing Goal Moderate Assistance Toilet Transfer Goal Independent Shower Transfer Goal Independent Days to Meet Goals 7 Frequency of Treatment Frequency Of Treatment Once a Day Treatment Plan OT Treatment Plan ADL Training,Functional Cognition Training,Functional Mobility,Patient/Family Education,Discharge Planning Discharge Recommendations OT Discharge Recommendations SNF Rehab,[facility] Other Discharge Recommendations Pt would benefit from LTC after SNF. Transportation Needs at Discharge Wheelchair/Cabulance
[2021-03-28 12:58] LABS: Hematocrit 30.2 % (36-46); Hemoglobin 10.1 g/dL (12.0-16.0); Mean Corpuscular HGB Conc 33.6 % (30-36); Mean Corpuscular Hemoglobin 29.5 PG (26-34); Mean Corpuscular Volume 87.8 fL (80-100); Platelet Count 239 X10^3/uL (150-400); Red Blood Cell Count 3.44 X10^6/uL (4.0-5.2); White Blood Cell Count 11.4 X10^3/uL (4.5-11.0)
[2021-03-28 13:30] LABS: BUN Creatinine Ratio 21.9 (6-22); Blood Urea Nitrogen 56 mg/dL (7-17); Calcium 8.4 mg/dL (8.4-10.2); Carbon Dioxide 21 mmol/L (22-32); Chloride 102 mmol/L (98-107); Estimated Glomerular Filt Rate 18.6 mL/min (>60); Glucose 187 mg/dL (80-110); HEMOLYSIS < 15 (0-50); Magnesium 1.9 mg/dL (1.6-2.3); Potassium 4.3 mmol/L (3.4-5.1); Sodium 135 mmol/L (137-145)
--- NOTE | 2021-03-28 14:34 | PC.NURSE ---
Pt sleeping this a.m. awakened by lab initially refusing labs and VS. After breakfast pt agreeable to participate in care, calls appropriately, medicate for back pain with 1 tab PRN norco with good effect, agreeable to labs the 2nd attempt. Participated with PT today. Declines taking insulin. Orders received today to d/c prednisone. Pt w/ slight upper airway wheezes, denies SOB. LS CTA, edema +2-3 to B LE. NAD. Aggreeable to d/c plan to [facility] on Friday. BERE Shay discussing care with [facility].
[2021-03-28] MEDS: ALBUTEROL/IPRATROPIUM 3 ML AMPUL INH ×2 (16:06→20:09)
--- NOTE | 2021-03-28 16:36 | CM.DANOTE ---
DCP/continued: Received call from April at [facility]. She reports that they can accept when patient medically stable. D/C date anticipated for Friday03-30-2021. Patient aware that she will need to continue to participate with therapy to qualify. Patient aware and agreeable. In addition, Lyssa would like patient to know that [facility] is a no smoking facility. Patient unable to smoke on their premises which includes outside. Patient has JENNI (see [facility] notes for details). A[facility]S. here today to obtain records. Assigned worker is Laurita Mc # [phone]. Per Laurita she was visiting patient today on non hospital related issue. Laurita requesting H&P be faxed to A.P.S. office. [facility] faxed requested records. No additional A.P.S. involvement for d/c needed. P: [facility] on Friday03-30-21. PASRR to be reviewed prior to d/c. [employer] following closely and will need to inform patient prior to d/c that she cannot smoke at [facility]. CHRISTINA Murray
--- NOTE | 2021-03-28 17:37 | PC.NURSE ---
Addendum entered by Tonya Morales R.N. 03/28/21 22:54: Pt requests assistance to use bedside commode. Walker use and pt is able to pivot and transfer from recliner to commode. Buttocks is reddened and pt does state soreness from sitting. Waffle cushion placed on pt's recliner with explanation for use. Barrier cream applied to buttocks after toileting. Assisted back into recliner, BL scd's replaced and warm blanket for comfort. Pt states preference is to sleep in recliner. Call light within pt's reach. Addendum entered by Tonya Morales R.N. 03/28/21 22:22: Refused hs insulin. Agrees to other meds. Medicated for back pain. Prefers to remain up in recliner watching television. BL scd's in place. R.T.treatments this shift. Addendum entered by Tonya Morales R.N. 03/28/21 19:14: Pt conversant with CHILD CARE TEAM LEAD in room. Remains up in recliner with BL LE's elevated and calf scd's in place. This mortgage underwriter requests to listen to pt's heart and lungs. Do you have to? Informed pt need to do so. Pt compliant with this request. Original Note: Pt up in recliner. Allowed blood sugar check, but refused insulin. Taking diet without difficulty.
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
[2021-03-28] MEDS: ATORVASTATIN 20 MG TABLET PO (21:24)
[2021-03-28] MEDS: SODIUM CHLORIDE 0.9% FLUSH 10 ML IV (22:01)
[2021-03-29] VITALS (11 sets, daily range): BP systolic 125–157; BP diastolic 63–80; PULSE 66–80; RESP 15–20; TEMP 36.2–36.6; O2SAT 91–98
[2021-03-29] MEDS: ALBUTEROL/IPRATROPIUM 3 ML AMPUL INH ×5 (07:03→23:35)
[2021-03-29] MEDS: HEPARIN 5,000 UNIT/ML VIAL 7500 UNIT SUBCUT ×2 (09:42→21:31)
[2021-03-29] MEDS: AMLODIPINE 5 MG TABLET PO (09:43)
[2021-03-29] MEDS: METOPROLOL IR 25 MG TABLET 12.5 MG PO ×2 (09:43→21:32)
[2021-03-29] MEDS: ESCITALOPRAM 10 MG TABLET 5 MG PO (09:44)
[2021-03-29] MEDS: INSULIN LISPRO 100 UNIT/ML 3ML VIAL SUBCUT ×2 (09:46→17:11)
[2021-03-29] MEDS: SODIUM CHLORIDE 0.9% FLUSH 10 ML IV ×2 (09:50→21:36)
[2021-03-29] MEDS: HYDROCODONE/ACET 5/325 TABLET 1 TAB PO ×2 (10:18→22:03)
[2021-03-29 11:54] LABS: Hematocrit 30.2 % (36-46); Hemoglobin 10.1 g/dL (12.0-16.0); Mean Corpuscular HGB Conc 33.4 % (30-36); Mean Corpuscular Hemoglobin 29.5 PG (26-34); Mean Corpuscular Volume 88.4 fL (80-100); Platelet Count 232 X10^3/uL (150-400); Red Blood Cell Count 3.41 X10^6/uL (4.0-5.2); Red Cell Distribution Width 18.4 % (11.6-14.8); White Blood Cell Count 9.9 X10^3/uL (4.5-11.0)
[2021-03-29 12:05] LABS: BUN Creatinine Ratio 26.5 (6-22); Blood Urea Nitrogen 75 mg/dL (7-17); Carbon Dioxide 21 mmol/L (22-32); Chloride 102 mmol/L (98-107); Estimated Glomerular Filt Rate 16.6 mL/min (>60); Glucose 152 mg/dL (80-110); HEMOLYSIS < 15 (0-50); Potassium 3.5 mmol/L (3.4-5.1); Sodium 135 mmol/L (137-145)
--- NOTE | 2021-03-29 12:45 | PT-IP ANOTE ---
Pt unavailable as pt is taking shower with nursing at this time.
--- NOTE | 2021-03-29 13:42 | PT-IP ANOTE ---
Pt refused stating she was too tired from having a shower. Pt would like therapy to check back on her tomorrow.
--- NOTE | 2021-03-29 14:00 | OT.IPNOTE ---
Pt just completed showering with nursing and too tired to do OT at this time.
--- NOTE | 2021-03-29 17:46 | PC.NURSE ---
Addendum entered by Tonya Morales R.N. 03/29/21 22:59: Sitting in recliner with legs elevated working on tablet. When asked, states back pain isn't improved. Remains 06/26. Inquired of pt if there is anything this comic book writer can do to assist in managing pain and pt states not really. Addendum entered by Tonya Morales R.N. 03/29/21 22:20: Renal ultrasound completed and tech states will have on-call radiologist report to overnight hospitalist LUISA Martínez. Addendum entered by Tonya Morales R.N. 03/29/21 21:44: Noted with toileting pt has purple discoloration to BL buttocks. Does not christine. Barrier cream applied to buttocks and inner gluteal fold which is reddened. Careful cleansing prior to cream application. Pt returns to recliner and this comic book writer suggested pt recline further back in recliner to alleviate pressure to buttocks. Pt refuses stating this movement is limited by breathing. Waffle cushion remains in chair. Hospitalist discusses with this comic book writer placement of cazares catheter for strict i and o. MD states unsure if pt able to lie flat in bed for this intervention. Discussed with MD pt's skin to buttocks with pressure areas and movement to toilet is the only time pt moves from chair. Pt agreeable to cazares and returned to bed. Financial Counselor, Roberta, and float RN, Modesta, attempt cazares but unable to advance catheter following appearance of urine in tubing stating encountering resistance. senior technical business analyst in with pt per Dr. Moore's order for this to be completed this evening. Fluid restriction implemented and this was explained to pt as per . Pt agreeable to these things and accepts Lantus insulin although refuses hs dose of correction insulin. Original Note: Pt up in recliner. R.T. treatments. Occasional harsh cough. Agreeable to insulin and this was administered. Pt states does not want any injections in arm, but prefers abdomen. Right abdomen site chosen and administered.
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
--- NOTE | 2021-03-29 19:38 | DI.US.S_ITS ---
PROCEDURE: US RENAL COMPLETE INDICATIONS: THEO TECHNIQUE: Real-time scanning was performed of the kidneys and bladder, with image documentation. COMPARISON: None. FINDINGS: Kidneys: Kidneys are normal in size. Right kidney measures 10.7 cm long; left kidney measures 8.7 cm long. Right renal cortical thickness is 0.9 cm; left renal cortical thickness is 0.5 cm. Renal cortical echotexture is normal. No hydronephrosis or nephrolithiasis. No suspicious solid mass lesions. Bladder: Pre-void bladder volume is 68 mL. Patient unable to void for postvoid residual evaluation. Pre-void images demonstrate no intraluminal masses or stones. On pre-void images, neither the right nor the left ureteral jets are noted with color Doppler interrogation. (Of note, ureteral jets may not be detectable in up to 25% of cases due to insufficient differences in specific gravity between ureteral and bladder urine). Miscellaneous: No free pelvic fluid. IMPRESSION: 1. Bilateral renal atrophy with cortical thinning, left greater than right. 2. No hydronephrosis. Dictated by: Yenifer Gibson MD, PhD on 03/30/2021 at 8:48 Approved by: Yenifer Gibson MD, PhD on 03/30/2021 at 8:50
[2021-03-29] MEDS: metOLazone 2.5 MG TABLET PO (20:23)
[2021-03-29] MEDS: FUROSEMIDE 100 MG/10 ML VIAL 80 MG IV (21:21)
[2021-03-29] MEDS: ATORVASTATIN 20 MG TABLET PO (21:32)
[2021-03-29] MEDS: INSULIN GLARGINE 100 UNIT/ML 3ML PEN 10 UNIT SUBCUT (21:35)
[2021-03-30] VITALS (8 sets, daily range): BP systolic 131–144; BP diastolic 68–92; PULSE 69–83; RESP 16–22; TEMP 36.1–37.3; O2SAT 92–98
[2021-03-30 06:22] LABS: Hematocrit 31.2 % (36-46); Hemoglobin 10.5 g/dL (12.0-16.0); Mean Corpuscular HGB Conc 33.6 % (30-36); Mean Corpuscular Hemoglobin 29.9 PG (26-34); Mean Corpuscular Volume 88.8 fL (80-100); Platelet Count 240 X10^3/uL (150-400); Red Blood Cell Count 3.51 X10^6/uL (4.0-5.2); Red Cell Distribution Width 18.4 % (11.6-14.8); White Blood Cell Count 9.5 X10^3/uL (4.5-11.0)
[2021-03-30 06:37] LABS: Magnesium 1.8 mg/dL (1.6-2.3)
[2021-03-30 06:38] LABS: BUN Creatinine Ratio 29.1 (6-22); Blood Urea Nitrogen 91 mg/dL (7-17); Calcium 8.4 mg/dL (8.4-10.2); Carbon Dioxide 20 mmol/L (22-32); Chloride 104 mmol/L (98-107); Estimated Glomerular Filt Rate 14.8 mL/min (>60); Glucose 151 mg/dL (80-110); HEMOLYSIS < 15 (0-50); Potassium 3.3 mmol/L (3.4-5.1); Sodium 137 mmol/L (137-145)
[2021-03-30] MEDS: HEPARIN 5,000 UNIT/ML VIAL 7500 UNIT SUBCUT ×2 (06:44→14:00)
[2021-03-30 06:45] LABS: NT-proBNP (BNP-Adult 18+) 21800 pg/mL (<125)
[2021-03-30] MEDS: ALBUTEROL/IPRATROPIUM 3 ML AMPUL INH ×2 (07:22→12:35)
[2021-03-30] MEDS: POTASSIUM CHLORIDE IN WATER 10 MEQ/100 ML PIGGYBACK 100 MEQ IV (07:32)
[2021-03-30] MEDS: FUROSEMIDE 100 MG/10 ML VIAL 80 MG IV (08:33)
[2021-03-30] MEDS: ESCITALOPRAM 10 MG TABLET 5 MG PO (08:34)
[2021-03-30] MEDS: HYDROCODONE/ACET 5/325 TABLET 1 TAB PO (08:35)
[2021-03-30] MEDS: METOPROLOL IR 25 MG TABLET 12.5 MG PO (08:44)
[2021-03-30] MEDS: AMLODIPINE 5 MG TABLET PO (08:45)
[2021-03-30] MEDS: SODIUM CHLORIDE 0.9% FLUSH 10 ML IV (08:50)
--- NOTE | 2021-03-30 09:42 | OT.IPNOTE ---
Pt not wanting to be seen as waiting to get catheter placed, to check on the pt later for OT needs.
[2021-03-30] MEDS: FUROSEMIDE 100 MG in SODIUM CHLORIDE 0.9% 50 ML 6 ML IV (10:35)
[2021-03-30] MEDS: POTASSIUM CHLORIDE 20 MEQ/15 ML UDC PO (10:47)
--- NOTE | 2021-03-30 11:23 | OT.IP.TRT ---
Current Diagnoses Heart failure, unspecified (03/27/21) Occupational Therapy Treatment Note M2 OT-IP Current Condition Start: 03/28/21 11:47 Freq: Status: Active Protocol: Document 03/28/21 11:10 [facility] (Rec: 03/28/21 12:05 [facility] [id number]) Occupational Therapy Current Condition Current Condition Evaluation Date 03/28/21 Treatment Diagnosis CHF and COPD exacerbation Diagnosis Onset Date 03/27/21 M3 OT- IP Subjective and Pain Start: 03/28/21 11:47 Freq: Status: Active Protocol: Document 03/30/21 11:26 [facility] (Rec: 03/30/21 11:32 [facility] [id number]) OT- Subjective Occupational Therapy Visit Type Type Treatment Note Visit Start Time 11:07 Visit Stop Time 11:23 Total Visit Minutes 16 Occupational Therapy Visit Comments Patient Comments Pt wanting to use the BSC. Patient/Caregiver Goals To go to skilled rehab. OT Pain Assessment Pain When Pain Assessed At Rest Pain Present Pain Present Denied Pain M4 OT- IP ADL's Start: 03/28/21 11:47 Freq: Status: Active Protocol: Document 03/30/21 11:26 [facility] (Rec: 03/30/21 11:32 [facility] [id number]) OT ADL-Toileting General Evaluation Toileting Ability Maximum Assistance Areas Needing Assistance Manage Clothing,Perform Perineal Hygiene Devices Toileting Assistive Devices Commode Comments OT Toileting Comments Pt needing assist for all hygiene and brief management needs as unable to reach on her own. OT ADL-Bathing Comments OT Bathing Comments If pt still here to try to have pt shower tomorrow. M5 OT- IP IADL's Start: 03/28/21 11:47 Freq: Status: Active Protocol: Document 03/28/21 11:10 [facility] (Rec: 03/28/21 12:05 [facility] [id number]) OT-Instrumental Activities of Daily Living Home Safety Awareness Awareness of Need for Assistance at Home Good Awareness Medication Management Medication Management Caregiver Administers Meal Preparation Meal Preparation Caregiver Provides Assist Annealing Furnace Tender Annealing Furnace Tender Caregiver Provides Assist M6 OT- IP Functional Cognition Start: 03/28/21 11:47 Freq: Status: Active Protocol: Document 03/30/21 11:26 [facility] (Rec: 03/30/21 11:32 [facility] [id number]) Cognitive Factors Limiting Selfcare Function Cognitive Ability Level of Alertness Alert Patient Orientation Name,Place,Situation Attention Span Ability Capable of Focused Attention, Capable of Sustained Attention Ability to Follow Commands Able to Follow One Step Commands Memory Description Short Term Impaired Cognitive Comments Cognitive Assessment Comments Pt appears to be at baseline for cognitive needs at this time. M7 OT- IP Mobility and Balance Start: 03/28/21 11:47 Freq: Status: Active Protocol: Document 03/30/21 11:26 [facility] (Rec: 03/30/21 11:32 [facility] [id number]) OT-Transfer Assessment Sit to and From Stand Sit to and from Stand Standby Assistance Transfers Transfer Ability Standby Assistance Technique Transfer Destination Bedside Commode,Chair Transfer Technique Stand Step Pivot Devices Transfer Assistive Devices Gait Belt,Front Wheeled Walker Comments Mobility Comments Pt not wanting to wears socks or have use of gait belt during BSC transfer. SBA with FWW, assist to help guide position IV pole. OT- Balance Assessment Sitting Balance and Reactions Static Sitting Balance Ability Good Dynamic Sitting Balance Ability Fair Standing Balance and Reactions Static Standing Balance Ability Fair M8 OT- IP Objective Assessments Start: 03/28/21 11:47 Freq: Status: Active Protocol: Document 03/28/21 11:10 [facility] (Rec: 03/28/21 12:05 [facility] [id number]) OT Gross Range of Motion Upper Extremity Range of Motion Assessment Bilaterally Impaired OT Strength Comments Strength Comments Bilateral shoulders 2-/5, from elbow to distal 4/5. OT-Muscle Tone Assessment Muscle Tone WNL Yes M9 OT- IP Assessment and Plan Start: 03/28/21 11:47 Freq: Status: Active Protocol: Document 03/30/21 11:26 [facility] (Rec: 03/30/21 11:32 [facility] [id number]) OT Summary Assessment and Plan Potential Rehabilitation Potential Fair Analytic Complexity at Evaluation Low Summary OT Impairments Balance,Functional Cognition, Functional Mobility,Dressing, Toileting,Bathing,Toilet Transfers,Shower Transfers, Activity Tolerance Progress Towards Goals Progressing Toward Goals Assessment Summary Pt is SBA with BSC transfer today and still needing MAX A for all hygiene and brief management needs. If pt still here to attempt showering with pt tomorrow. Pt to go to skilled rehab when medically stable. Goals Grooming Goal Independent Dressing Goal Moderate Assistance Toileting Goal Moderate Assistance Bathing Goal Moderate Assistance Toilet Transfer Goal Independent Shower Transfer Goal Independent Days to Meet Goals 7 Frequency of Treatment Frequency Of Treatment Once a Day Treatment Plan OT Treatment Plan ADL Training,Functional Mobility,Patient/Family Education,Discharge Planning Discharge Recommendations OT Discharge Recommendations SNF Rehab,[facility] Other Discharge Recommendations Pt would benefit from LTC after SNF. Transportation Needs at Discharge Wheelchair/Cabulance
--- NOTE | 2021-03-30 12:14 | PT-IP ANOTE ---
Pt refused PT session, this MOTHER REPAIRER explained the benefits of PT therapy, pt stated understanding but states she is up enough with nursing. MOTHER REPAIRER asked pt if she would like PT to come earlier in the day before she mobilized with nursing and she stated NO. Pt will be discharged from PT services.
[2021-03-30 12:24] LABS: HEMOLYSIS < 15 (0-50); Potassium 3.6 mmol/L (3.4-5.1)
[2021-03-30] MEDS: INSULIN LISPRO 100 UNIT/ML 3ML VIAL SUBCUT (12:25)
[2021-03-30 13:08] LABS: BUN Creatinine Ratio 30.2 (6-22); Blood Urea Nitrogen 95 mg/dL (7-17); Calcium 8.3 mg/dL (8.4-10.2); Carbon Dioxide 18 mmol/L (22-32); Chloride 104 mmol/L (98-107); Estimated Glomerular Filt Rate 14.7 mL/min (>60); Glucose 213 mg/dL (80-110); HEMOLYSIS < 15 (0-50); Magnesium 1.8 mg/dL (1.6-2.3); Potassium 3.6 mmol/L (3.4-5.1); Sodium 135 mmol/L (137-145)
--- NOTE | 2021-03-30 13:59 | PT-IP ANOTE ---
EDUCATION ADMINISTRATOR informed this PT regarding pt's refusal to do PT. EDUCATION ADMINISTRATOR stated that pt is aware of risks/benefits of PT and continues to refuse PT and agreed to be discharged from PT. Called manager case and is aware of pt's refusals and that pt will be d/c'd from PT.
--- NOTE | 2021-03-30 14:03 | PT.IPTN ---
Current Diagnoses Heart failure, unspecified (03/27/21) Physical Therapy Treatment Note M2 PT-IP Current Condition Start: 03/27/21 16:55 Freq: NEEDED Status: Active Protocol: Document 03/27/21 03:20 AB (Rec: 03/27/21 17:11 AB [id number]) Physical Therapy Current Condition Current Condition Evaluation Date 03/27/21 Treatment Diagnosis CHF; THEO; difficulty in walking Onset Date 03/26/21 M3 PT-IP Subjective Start: 03/27/21 16:55 Freq: NEEDED Status: Active Protocol: Document 03/30/21 14:02 AB (Rec: 03/30/21 14:03 AB [id number]) Subjective Physical Therapy Visit Type Type Patient Refusal Notes ENVIRONMENTAL SERVICES COORDINATOR informed this PT regarding pt's refusal to do PT. ENVIRONMENTAL SERVICES COORDINATOR stated that pt is aware of risks/benefits of PT and continues to refuse PT and agreed to be discharged from PT. Called continuous pillowcase cutter and is aware of pt's refusals and that pt will be d/c'd from PT. M7 PT-IP Assessment and Plan Start: 03/27/21 16:55 Freq: NEEDED Status: Active Protocol: Document 03/30/21 14:02 AB (Rec: 03/30/21 14:03 AB [id number]) PT Summary Assessment and Plan Frequency of Treatment Frequency Of Treatment Discharge
--- NOTE | 2021-03-30 14:48 | PC.NURSE ---
Addendum entered by Abby Russo R.N. 03/30/21 15:06: Correction. Per MD update pt will be going to [facility], for further monitoring/evaluation of kidney function. Addendum entered by Abby Russo R.N. 03/30/21 14:56: Pt declined physical therapy this shift. Plan to d/c to [facility] when stable. Pt may be considerate of nephrology consult. Agreed to have insulin administered this shift. Original Note: Pt A&O x3. VSS, afebrile. Slight expiratory wheezes auscultated, with fine crackles in upper lobes. Remains on RA at 93% 02. Pt reports back pain chronically, controlled well with 1 tab PRN vicodin. RN attempted placing Lane catheter this shift, but unable to advance catheter. She refused a 2nd attempt with a coude catheter. Pt recieved bolus of 80 mg IVP lasix this a.m. and k+ replacement po this a.m. recheck k+ up to 3.6 this a.m. Pt compliant with fluid restriction this shift and voiding large amount of clear urine. IVF Lasix drip at 6ml/hr for a total of 100mg
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
--- NOTE | 2021-03-30 15:15 | CM.DPNOTE ---
DC Note Patient being transferred to [facility] for monitoring and evaluation of worsened kidney function Updated April at [facility] FRANDY
--- NOTE | 2021-03-30 17:48 | PC.NURSE ---
Pt midway through evening meal when this senior medical writer discovered pt's pre mealtime blood sugar had not been checked. Inquired of pt if would permit blood sugar check now and pt states wants to continue eating. Will defer blood sugar check until hs and reapproach pt.
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
--- NOTE | 2021-03-30 20:22 | PC.NURSE ---
Pt saline locked for transport to [facility]. Pt is alert, oriented and conversant up in recliner. Medics were provided with report and paperwork for transfer. Pt's home meds were retrieved from pharmacy and sent with pt along with pt's other belongings. All personal effects were accounted for. Report was called to receiving RN @ [facility]. Pt left hospital in stable condition via ambulance with medics. Blood sugar checked for 212 prior to discharge.
== END 2021-03-30 20:10 | disposition short-term general hospital (02) | DRG 291 ==
LOC: ED 17:02 → AC 17:17
PROVIDERS: Nurse Practitioner Family; Admitting Provider Internal Medicine; Emergency Provider Emergency Medicine; PCP Student in an Organized Health Care Education/Training Program; Referring Provider Emergency Medicine; Visit Provider Internal Medicine
DX: I13.0 Hypertensive heart and chronic kidney disease with heart failure and stage 1 through stage 4 chronic kidney disease, or unspecified chronic kidney disease (principal); I50.23 Acute on chronic systolic (congestive) heart failure; N18.4 Chronic kidney disease, stage 4 (severe); N17.9 Acute kidney failure, unspecified; Z68.42 Body mass index [BMI] 45.0-49.9, adult; E66.01 Morbid (severe) obesity due to excess calories; F32.9 Major depressive disorder, single episode, unspecified; Z95.1 Presence of aortocoronary bypass graft; E11.22 Type 2 diabetes mellitus with diabetic chronic kidney disease; E78.5 Hyperlipidemia, unspecified; J44.9 Chronic obstructive pulmonary disease, unspecified; I25.10 Atherosclerotic heart disease of native coronary artery without angina pectoris
CPT/HCPCS: 36415; 71045; 76770; 80048; 80053; 82550; 82962; 83735; 83880; 84132; 84484; 85025; 85027; 87635; 93005; 93010; 93306; 94640; 94760; 96374; 97161; 97165; 97530; 97535; 99284; C9803; G0378; J1644; J1815; J1940; J3475